=== PATIENT | male | born 1935 | race Caucasian/White ===

== ENCOUNTER 2017-11-18 07:11 | Observation (INO) | payer MEDICARE, MEDICAID ==
[~2017-11-18] VITALS: Ht 190.5 cm; Wt 72.6 kg
[2017-11-18] MEDS ORDERED: SODIUM CHLORIDE 0.9% 1,000 ML IV ONE (07:31)
[2017-11-18 07:57] LABS: HEMATOCRIT. 35.5 % (42.0-52.0); HEMOGLOBIN. 12.3 g/dL (14.0-18.0); MEAN CORPUSCULAR HEMOGLOBIN 31.7 pg (28.0-32.0); MEAN CORPUSCULAR VOLUME 91.2 fL (80.0-94.0); MEAN PLATELET VOLUME 9.4 fl (7.4-10.4); PLATELET 163 x1000/uL (130-400); RED BLOOD CELL COUNT 3.89 mill/uL (4.7-6.1); RED CELL DISTRIBUTION WIDTH 13.1 % (11.6-14.6)
[2017-11-18 08:01] LABS: CHLORIDE 92 mEq/L (98-107)
[2017-11-18 08:28] LABS: INR 1.1; PROTHROMBIN TIME 11.8 sec (9.4-11.6)
[2017-11-18 08:34] LABS: PLATELET ESTIMATE NORMAL
[2017-11-18] MEDS ORDERED: PIPERACILLIN/TAZ 3.375G PREMIX 50 ML IV ONE (10:15)
[2017-11-18] MEDS ORDERED: VANCOMYCIN 1 G PREMIX 200 ML IV SCH (10:15)
[2017-11-18 12:05] VITALS: BP 103/47
[2017-11-18 12:38] VITALS: BP 103/51
[2017-11-18] MEDS ORDERED: DEXTROSE 50% WATER 50ML SYRINGE IV PRN (13:45)
[2017-11-18] MEDS ORDERED: ACETAMINOPHEN 650MG SUPP PR PRN (13:45)
[2017-11-18] MEDS ORDERED: MAGNESIUM/ALUMINUM HYDROXIDE/SIMETHICONE 30ML UDC PO PRN (13:45)
[2017-11-18] MEDS ORDERED: GUAIFENESIN 200MG/10ML SUGAR FREE UDC PO PRN (13:45)
[2017-11-18] MEDS ORDERED: ONDANSETRON HCL 4MG/2ML VIAL IV PRN (13:45)
[2017-11-18] MEDS ORDERED: CLONIDINE 0.1MG TABLET PO PRN (13:45)
[2017-11-18] MEDS ORDERED: IPRATROPIUM/ALBUTEROL 0.5-3(2.5)MG/3ML NEB INH PRN (13:45)
[2017-11-18] MEDS ORDERED: NA PHOS,M-B/NA PHOS,DI-BA ENEMA 118ML PR PRN (13:45)
[2017-11-18] MEDS ORDERED: ACETAMINOPHEN 325MG TABLET PO PRN (13:45)
[2017-11-18] MEDS ORDERED: DIPHENHYDRAMINE 50MG/ML VIAL IV PRN (13:45)
[2017-11-18] MEDS: HYDROCODONE/ACETAMINOPHEN 5/325MG TABLET PO PRN (14:20)
[2017-11-18] MEDS ORDERED: VANCOMYCIN 500 MG PREMIX 100 ML IV NR (15:00)
[2017-11-18 16:00] VITALS: BP_SYST 89; BP_SYST 93; BP_DIAS 40; BP_DIAS 50
[2017-11-18] MEDS ORDERED: POTASSIUM CHLORIDE 20MEQ TABLET SR PO NR (16:00)
[2017-11-18] MEDS: BLOOD SUGAR DIAGNOSTIC STRIP TEST SCH ×2 (17:08→20:47)
[2017-11-18] MEDS: INSULIN LISPRO 100 UNITS/ML SUBCUT SCH ×2 (17:35→20:47)
[2017-11-18] MEDS ORDERED: ENOXAPARIN 40MG/0.4ML SYR SUBCUT SCH (18:00)
[2017-11-18] MEDS ORDERED: PIPERACILLIN/TAZ 2.25G PREMIX 50 ML IV SCH (18:00)
[2017-11-18 18:02] VITALS: BP 91/49
[2017-11-18 20:00] VITALS: BP 93/52
[2017-11-18 20:02] LABS: CLARITY URINE CLOUDY (CLEAR); COLOR URINE AMBER (YELLOW); KETONES URINE TRACE (NEGATIVE); LEUKOCYTE ESTERASE URINE 1+ (NEGATIVE); NITRITE URINE NEGATIVE (NEGATIVE); OCCULT BLOOD URINE NEGATIVE (NEGATIVE); PH URINE 5.5 (4.5-8.0); PROTEIN URINE TRACE (NEGATIVE); SPECIFIC GRAVITY URINE 1.026 (1.005-1.030); UROBILINOGEN URINE 0.2 E.U./dL (0.2-1.0)
[2017-11-18 20:18] LABS: METHADONE URINE SCREEN NEGATIVE (NEGATIVE); OPIATES URINE SCREEN NEGATIVE (NEGATIVE)
[2017-11-18 20:19] LABS: *AMPHETAMINES SCREEN URINE NEGATIVE (NEGATIVE); *BARBITURATES SCREEN URINE NEGATIVE (NEGATIVE); *BENZODIAZEPINES SCREEN URINE NEGATIVE (NEGATIVE); *COCAINE SCREEN URINE NEGATIVE (NEGATIVE); CANNABINOID URINE SCREEN NEGATIVE (NEGATIVE); PHENCYCLIDINE URINE SCREEN NEGATIVE (NEGATIVE)
[2017-11-18] MEDS ORDERED: LEVOFLOXACIN 500MG PREMIX 100 ML IV SCH (23:00)
[2017-11-18] MEDS: METRONIDAZOLE 500 MG PREMIX 100 ML IV SCH (23:15)
[2017-11-19] VITALS: BP 95/48
[2017-11-19] MEDS: SODIUM CHLORIDE 0.9% 1,000 ML IV SCH (03:39)
[2017-11-19 04:00] VITALS: BP 93/50
[2017-11-19] MEDS: METRONIDAZOLE 500 MG PREMIX 100 ML IV SCH ×3 (05:52→21:48)
[2017-11-19 07:29] LABS: HEMATOCRIT. 32.7 % (42.0-52.0); HEMOGLOBIN. 11.3 g/dL (14.0-18.0); MEAN CORPUSCULAR HEMOGLOBIN 31.8 pg (28.0-32.0); MEAN PLATELET VOLUME 9.3 fl (7.4-10.4); PLATELET 149 x1000/uL (130-400); RED BLOOD CELL COUNT 3.56 mill/uL (4.7-6.1)
[2017-11-19] MEDS: BLOOD SUGAR DIAGNOSTIC STRIP TEST SCH ×4 (07:36→20:55)
[2017-11-19] MEDS: INSULIN LISPRO 100 UNITS/ML SUBCUT SCH ×4 (07:50→20:55)
[2017-11-19 07:57] LABS: CHLORIDE 105 mEq/L (98-107)
[2017-11-19 08:07] LABS: LDL CHOLESTEROL 52 mg/dL (5-100)
[2017-11-19 08:09] LABS: HDL CHOLESTEROL 31 mg/dL (40-59); T4 FREE 1.41 ng/dL (0.76-1.46)
[2017-11-19 08:47] VITALS: BP 112/60
[2017-11-19] MEDS ORDERED: VANCOMYCIN 750 MG PREMIX 150 ML IV SCH (10:00)
[2017-11-19] MEDS ORDERED: POTASSIUM CHLORIDE 20MEQ TABLET SR PO SCH (10:00)
[2017-11-19 12:46] VITALS: BP 118/51
[2017-11-19 12:49] LABS: PLATELET ESTIMATE NORMAL
[2017-11-19 13:31] LABS: HEMATOCRIT. 34.1 % (42.0-52.0); HEMOGLOBIN. 11.8 g/dL (14.0-18.0); MEAN CORPUSCULAR HEMOGLOBIN 31.7 pg (28.0-32.0); MEAN CORPUSCULAR VOLUME 91.9 fL (80.0-94.0); PLATELET 161 x1000/uL (130-400); RED BLOOD CELL COUNT 3.71 mill/uL (4.7-6.1); RED CELL DISTRIBUTION WIDTH 13.3 % (11.6-14.6)
[2017-11-19 14:09] LABS: PLATELET ESTIMATE NORMAL
[2017-11-19 16:40] VITALS: BP 115/52
[2017-11-19 20:00] VITALS: BP 111/64
[2017-11-19] MEDS ORDERED: LEVOFLOXACIN 250MG PREMIX 50 ML IV SCH (23:00)
[2017-11-20] VITALS: BP 101/52
[2017-11-20 04:00] VITALS: BP 101/63
[2017-11-20] MEDS: METRONIDAZOLE 500 MG PREMIX 100 ML IV SCH (05:39)
[2017-11-20] MEDS: SODIUM CHLORIDE 0.9% 1,000 ML IV SCH (05:47)
[2017-11-20] MEDS: HYDROCODONE/ACETAMINOPHEN 5/325MG TABLET PO PRN (06:48)
[2017-11-20] MEDS: BLOOD SUGAR DIAGNOSTIC STRIP TEST SCH (06:48)
[2017-11-20 07:37] LABS: HEMATOCRIT 30.2 % (42.0-52.0); HEMOGLOBIN 10.6 g/dL (14.0-18.0); MEAN CORPUSCULAR HEMOGLOBIN 31.9 pg (28.0-32.0); PLATELET 158 x1000/uL (130-400); RED BLOOD CELL COUNT 3.32 mill/uL (4.7-6.1)
[2017-11-20 07:46] LABS: CHLORIDE 106 mEq/L (98-107)
[2017-11-20 08:05] VITALS: BP 115/56
[2017-11-20 08:33] VITALS: BP 134/58
[2017-11-20] MEDS ORDERED: POTASSIUM CHLORIDE 20MEQ TABLET SR PO SCH (10:45)
[2017-11-20 12:33] VITALS: BP 134/58
[2017-11-20 14:46] VITALS: BP 134/58
== END 2017-11-20 14:50 ==
LOC: ER 07:35 → 6WST 10:18 → INTOOBSV 10:18 → EDBEDREQSVC 10:21 → EDBEDREQ 10:21 → ENRESERV 10:34
PROVIDERS: ADMIT Internal Medicine; ATTEND Internal Medicine
DX: D72.825 Bandemia (principal); E87.1 Hypo-osmolality and hyponatremia; N17.9 Acute kidney failure, unspecified; E86.0 Dehydration; E87.6 Hypokalemia; E11.9 Type 2 diabetes mellitus without complications; I10 Essential (primary) hypertension; G89.29 Other chronic pain; M54.5 Low back pain; M41.9 Scoliosis, unspecified; I73.9 Peripheral vascular disease, unspecified; D64.9 Anemia, unspecified; M41.86 Other forms of scoliosis, lumbar region; R06.02 Shortness of breath; R51 Headache
CPT/HCPCS: 36415; 70450; 71045; 80048; 80053; 80061; 80305; 81003; 82270; 82962; 83036; 83605; 83880; 84145; 84439; 84443; 84484; 85007; 85025; 85027; 85610; 87015; 87040; 87045; 87077; 87086; 87186; 87427; 87449; 87493; 93005; 96361; 96365; 96366; 96367; 96368; 99285; G0378; J1815; J1956; J2543; J3370; J3490; J7030; J7040

== ENCOUNTER 2017-12-12 15:59 | Inpatient (IN) | payer MEDICARE, MEDICAID ==
[~2017-12-12] VITALS: Ht 172.7 cm; Wt 76.2 kg
[2017-12-12 16:51] LABS: BASOPHILS % 0.5 % (0.0-2.0); EOSINOPHILS % 2.3 % (0.0-5.0); HEMATOCRIT. 30.3 % (42.0-52.0); HEMOGLOBIN. 10.4 g/dL (14.0-18.0); LYMPHOCYTES % 14.2 % (20.0-50.0); MEAN CORPUSCULAR HEMOGLOBIN 31.3 pg (28.0-32.0); MEAN CORPUSCULAR VOLUME 91.6 fL (80.0-94.0); MEAN PLATELET VOLUME 8.8 fl (7.4-10.4); MONOCYTES % 13.7 % (2.0-8.0); NEUTROPHILS % 69.3 % (40.0-76.0); PLATELET 300 x1000/uL (130-400); RED BLOOD CELL COUNT 3.31 mill/uL (4.7-6.1); RED CELL DISTRIBUTION WIDTH 13.5 % (11.6-14.6)
[2017-12-12 16:53] LABS: CHLORIDE 92 mEq/L (98-107)
[2017-12-12 16:58] LABS: INR 1.1; PARTIAL THROMBOPLASTIN TIME 29.2 sec (23.4-31.0); PROTHROMBIN TIME 11.5 sec (9.4-11.6)
[2017-12-12 17:01] LABS: CREATINE KINASE 64 IU/L (39-308)
[2017-12-12 17:04] LABS: CREATINE KINASE MB FRACTION 2.5 ng/mL (0.5-3.6)
[2017-12-12] MEDS ORDERED: FUROSEMIDE 40MG/4ML VIAL IVP ONE (17:15)
[2017-12-12] MEDS ORDERED: VALS160T27 MT (17:16)
[2017-12-12] MEDS ORDERED: PRAV40TA58 MT (17:16)
[2017-12-12] MEDS ORDERED: DOCU100T PO (17:16)
[2017-12-12] MEDS ORDERED: CARV12.545 MT (17:16)
[2017-12-12] MEDS ORDERED: EZET10TA26 PO (17:16)
[2017-12-12] MEDS ORDERED: AMLO10TA80 MT (17:16)
[2017-12-12] MEDS ORDERED: FURO20TA4 MT (17:16)
[2017-12-12] MEDS ORDERED: DICL75TA5 MT (17:16)
[2017-12-12] MEDS ORDERED: LEVOFLOXACIN 500MG PREMIX 100 ML IV ONE (18:30)
[2017-12-12 20:08] VITALS: BP 118/64
[2017-12-12 20:15] VITALS: BP 118/64
[2017-12-12] MEDS ORDERED: ACETAMINOPHEN 650MG/20.3ML UDC PO PRN (21:30)
[2017-12-12] MEDS ORDERED: FUROSEMIDE 40MG/4ML VIAL IVP SCH (21:30)
[2017-12-12] MEDS ORDERED: BISACODYL 5MG TABLET PO PRN (21:45)
[2017-12-12] MEDS ORDERED: FUROSEMIDE 100MG/10ML VIAL IVP SCH (22:00)
[2017-12-12] MEDS: ENOXAPARIN 40MG/0.4ML SYR SUBCUT SCH (23:53)
[2017-12-12] MEDS: MORPHINE SULFATE 4 MG/ML CPJ (NOT FOR IM USE) IV PRN (23:54)
[2017-12-12] MEDS: PANTOPRAZOLE 40MG DR TABLET PO SCH (23:54)
[2017-12-12] MEDS: LOSARTAN POTASSIUM 25 MG TABLET PO SCH (23:54)
[2017-12-12] MEDS: ASPIRIN 81MG TABLET PO SCH (23:55)
[2017-12-12] MEDS: POTASSIUM CHLORIDE 20MEQ TABLET SR PO SCH (23:57)
[2017-12-13] VITALS: BP 132/71
[2017-12-13] MEDS ORDERED: DEXTROSE 50% WATER 50ML SYRINGE IV PRN (00:30)
[2017-12-13 04:00] VITALS: BP 125/62
[2017-12-13] MEDS: PANTOPRAZOLE 40MG DR TABLET PO SCH (06:58)
[2017-12-13] MEDS: BLOOD SUGAR DIAGNOSTIC STRIP TEST SCH ×4 (06:58→21:55)
[2017-12-13] MEDS: INSULIN LISPRO 100 UNITS/ML SUBCUT SCH ×4 (07:26→21:00)
[2017-12-13 07:40] LABS: BASOPHILS % 0.7 % (0.0-2.0); EOSINOPHILS % 2.1 % (0.0-5.0); HEMATOCRIT. 29.3 % (42.0-52.0); HEMOGLOBIN. 10.1 g/dL (14.0-18.0); LYMPHOCYTES % 18.4 % (20.0-50.0); MEAN CORPUSCULAR HEMOGLOBIN 31.4 pg (28.0-32.0); MEAN CORPUSCULAR VOLUME 91.3 fL (80.0-94.0); MEAN PLATELET VOLUME 9.4 fl (7.4-10.4); MONOCYTES % 14.9 % (2.0-8.0); NEUTROPHILS % 63.9 % (40.0-76.0); PLATELET 285 x1000/uL (130-400); RED BLOOD CELL COUNT 3.21 mill/uL (4.7-6.1); RED CELL DISTRIBUTION WIDTH 13.3 % (11.6-14.6)
[2017-12-13 08:28] VITALS: BP 119/70
[2017-12-13] MEDS: ALBUTEROL (0.083%) 2.5MG/3ML NEB HHN SCH ×3 (09:00→20:58)
[2017-12-13] MEDS: LOSARTAN POTASSIUM 25 MG TABLET PO SCH ×2 (09:03→21:51)
[2017-12-13] MEDS: POTASSIUM CHLORIDE 20MEQ TABLET SR PO SCH (09:03)
[2017-12-13] MEDS: FUROSEMIDE 40MG/4ML VIAL IVP SCH (09:03)
[2017-12-13] MEDS: ASPIRIN 81MG TABLET PO SCH (09:03)
[2017-12-13 12:24] VITALS: BP 148/71
[2017-12-13 16:42] VITALS: BP 115/56
[2017-12-13] MEDS: LEVOFLOXACIN 500MG PREMIX 100 ML IV SCH (17:57)
[2017-12-13 20:00] VITALS: BP 106/59
[2017-12-13] MEDS: ENOXAPARIN 40MG/0.4ML SYR SUBCUT SCH (21:54)
[2017-12-14 00:22] VITALS: BP 119/50
[2017-12-14] MEDS: ALBUTEROL (0.083%) 2.5MG/3ML NEB HHN SCH ×4 (00:38→20:45)
[2017-12-14 04:39] VITALS: BP 129/67
[2017-12-14] MEDS: MORPHINE SULFATE 4 MG/ML CPJ (NOT FOR IM USE) IV PRN (04:59)
[2017-12-14] MEDS: BLOOD SUGAR DIAGNOSTIC STRIP TEST SCH ×4 (07:10→21:14)
[2017-12-14 07:11] LABS: BASOPHILS % 0.8 % (0.0-2.0); EOSINOPHILS % 1.2 % (0.0-5.0); HEMOGLOBIN. 10.3 g/dL (14.0-18.0); LYMPHOCYTES % 18.4 % (20.0-50.0); MEAN CORPUSCULAR HEMOGLOBIN 31.3 pg (28.0-32.0); MEAN CORPUSCULAR VOLUME 91.3 fL (80.0-94.0); MEAN PLATELET VOLUME 9.4 fl (7.4-10.4); MONOCYTES % 14.9 % (2.0-8.0); NEUTROPHILS % 64.7 % (40.0-76.0); PLATELET 274 x1000/uL (130-400); RED BLOOD CELL COUNT 3.28 mill/uL (4.7-6.1); RED CELL DISTRIBUTION WIDTH 13.5 % (11.6-14.6)
[2017-12-14] MEDS: INSULIN LISPRO 100 UNITS/ML SUBCUT SCH ×4 (07:24→21:00)
[2017-12-14 07:40] LABS: CHLORIDE 97 mEq/L (98-107)
[2017-12-14 08:00] VITALS: BP 135/63
[2017-12-14] MEDS: FUROSEMIDE 40MG/4ML VIAL IVP SCH (08:09)
[2017-12-14] MEDS: ASPIRIN 81MG TABLET PO SCH (08:09)
[2017-12-14] MEDS: LOSARTAN POTASSIUM 25 MG TABLET PO SCH ×2 (08:09→21:13)
[2017-12-14] MEDS: POTASSIUM CHLORIDE 20MEQ TABLET SR PO SCH (08:09)
[2017-12-14] MEDS ORDERED: FAMOTIDINE 20MG TABLET PO SCH ×2 (09:00→17:00)
[2017-12-14 12:00] VITALS: BP 149/71
[2017-12-14 16:00] VITALS: BP 127/80
[2017-12-14] MEDS: LEVOFLOXACIN 500MG PREMIX 100 ML IV SCH (17:22)
[2017-12-14] MEDS ORDERED: POTASSIUM CHLORIDE 10MEQ TABLET SR PO SCH (18:15)
[2017-12-14 20:43] VITALS: BP 132/78
[2017-12-14] MEDS: ENOXAPARIN 40MG/0.4ML SYR SUBCUT SCH (21:14)
== END 2017-12-14 21:20 | disposition home or self-care (01) | DRG 291 ==
LOC: ER 15:59 → OBSVTOIN 17:23 → INTOOBSV 17:23 → 6WST 17:23 → EDBEDREQ 17:24 → ENRESERV 17:52
PROVIDERS: ADMIT Internal Medicine; ATTEND Internal Medicine
DX: I11.0 Hypertensive heart disease with heart failure (principal); J18.9 Pneumonia, unspecified organism; I50.43 Acute on chronic combined systolic (congestive) and diastolic (congestive) heart failure; E78.00 Pure hypercholesterolemia, unspecified; D64.9 Anemia, unspecified; E78.5 Hyperlipidemia, unspecified; E11.51 Type 2 diabetes mellitus with diabetic peripheral angiopathy without gangrene; F03.90 Unspecified dementia, unspecified severity, without behavioral disturbance, psychotic disturbance, mood disturbance, and anxiety; M54.5 Low back pain; G89.29 Other chronic pain; Z79.1 Long term (current) use of non-steroidal anti-inflammatories (NSAID); Z79.899 Other long term (current) drug therapy
CPT/HCPCS: 36415; 71045; 80053; 80061; 82550; 82553; 82962; 83605; 83690; 83880; 84443; 84484; 85025; 85610; 85730; 87040; 93005; 93306; 93970; 96374; 99291; J1650; J1940; J1956; J2270; J7050; J7611

== ENCOUNTER 2018-06-23 10:41 | Inpatient (IN) | payer MEDICARE, MEDICAID ==
[~2018-06-23] VITALS: Ht 172.7 cm; Wt 72.1 kg
[2018-06-23] MEDS ORDERED: LEVOFLOXACIN 750MG PREMIX 150 ML IV ONE (12:15)
[2018-06-23 12:36] LABS: BASOPHILS % 0.3 % (0.0-2.0); EOSINOPHILS % 5.8 % (0.0-5.0); HEMATOCRIT. 29.4 % (42.0-52.0); HEMOGLOBIN. 9.5 g/dL (14.0-18.0); MEAN CORPUSCULAR HEMOGLOBIN 28.8 pg (28.0-32.0); MEAN CORPUSCULAR VOLUME 89.1 fL (80.0-94.0); MEAN PLATELET VOLUME 8.9 fl (7.4-10.4); MONOCYTES % 8.7 % (2.0-8.0); NEUTROPHILS % 75.2 % (40.0-76.0); PLATELET 169 x1000/uL (130-400); RED CELL DISTRIBUTION WIDTH 16.4 % (11.6-14.6)
[2018-06-23 12:42] LABS: INR 1.1; PARTIAL THROMBOPLASTIN TIME 31.7 sec (23.4-31.0); PROTHROMBIN TIME 11.4 sec (9.1-11.1)
[2018-06-23 12:43] LABS: CHLORIDE 108 mEq/L (98-107)
[2018-06-23 16:10] LABS: CLARITY URINE CLEAR (CLEAR); COLOR URINE YELLOW (YELLOW); KETONES URINE NEGATIVE (NEGATIVE); LEUKOCYTE ESTERASE URINE NEGATIVE (NEGATIVE); NITRITE URINE NEGATIVE (NEGATIVE); OCCULT BLOOD URINE NEGATIVE (NEGATIVE); PROTEIN URINE NEGATIVE (NEGATIVE); SPECIFIC GRAVITY URINE 1.012 (1.005-1.030); UROBILINOGEN URINE 0.2 E.U./dL (0.2-1.0)
[2018-06-23 16:30] VITALS: BP 107/75
[2018-06-23 16:41] VITALS: BP 132/58
[2018-06-23 20:00] VITALS: BP 152/81
[2018-06-23] MEDS ORDERED: DEXTROSE 50% WATER 50ML SYRINGE IV PRN (20:30)
[2018-06-23] MEDS ORDERED: CLONIDINE 0.1MG TABLET PO PRN (20:30)
[2018-06-23] MEDS ORDERED: ACETAMINOPHEN 325MG TABLET PO PRN (20:30)
[2018-06-23] MEDS: INSULIN LISPRO 100 UNITS/ML SUBCUT SCH (20:55)
[2018-06-23] MEDS: BLOOD SUGAR DIAGNOSTIC STRIP TEST SCH (20:55)
[2018-06-23] MEDS ORDERED: PNEUMOCOCCAL 23-VAL P-SAC VAC 0.5 ML IM ONE (21:15)
[2018-06-24] VITALS: BP 139/78
[2018-06-24] MEDS ORDERED: HYDROCODONE/ACETAMINOPHEN 5/325MG TABLET PO PRN
[2018-06-24] MEDS ORDERED: ACETAMINOPHEN 650MG/20.3ML UDC PO PRN
[2018-06-24] MEDS: ASPIRIN 81MG TABLET PO SCH (00:39)
[2018-06-24] MEDS: GUAIFENESIN 200MG/10ML SUGAR FREE UDC PO PRN (00:39)
[2018-06-24] MEDS: FUROSEMIDE 40MG/4ML VIAL IVP SCH ×2 (00:39→08:44)
[2018-06-24] MEDS: ENOXAPARIN 40MG/0.4ML SYR SUBCUT SCH (00:42)
[2018-06-24] MEDS: PIPERACILLIN/TAZ 3.375G PREMIX 50 ML IV SCH ×3 (03:02→17:40)
[2018-06-24 04:00] VITALS: BP 137/59
[2018-06-24] MEDS ORDERED: ALBUTEROL (0.083%) 2.5MG/3ML NEB HHN SCH (04:00)
[2018-06-24] MEDS: IPRATROPIUM/ALBUTEROL 0.5-3(2.5)MG/3ML NEB HHN SCH ×5 (04:36→21:24)
[2018-06-24] MEDS: BLOOD SUGAR DIAGNOSTIC STRIP TEST SCH ×4 (05:49→21:00)
[2018-06-24] MEDS: INSULIN LISPRO 100 UNITS/ML SUBCUT SCH ×4 (05:50→21:00)
[2018-06-24] MEDS ORDERED: PIPERACILLIN/TAZOBACTAM 3.375GM/50ML PREMIX IV SCH (06:00)
[2018-06-24 07:36] LABS: CHLORIDE 106 mEq/L (98-107)
[2018-06-24 07:46] LABS: HDL CHOLESTEROL 37 mg/dL (40-59)
[2018-06-24 07:48] LABS: LDL CHOLESTEROL 55 mg/dL (5-100)
[2018-06-24 08:00] VITALS: BP 124/55
[2018-06-24] MEDS: CARVEDILOL 6.25 MG TABLET PO SCH ×2 (08:43→21:09)
[2018-06-24] MEDS: METOPROLOL TARTRATE 50MG TABLET PO SCH ×2 (08:43→21:09)
[2018-06-24] MEDS ORDERED: ENOXAPARIN 40MG/0.4ML SYR SUBCUT SCH (09:00)
[2018-06-24 12:00] VITALS: BP 114/58
[2018-06-24] MEDS ORDERED: FUROSEMIDE 100MG/10ML VIAL IVP NR (13:15)
[2018-06-24] MEDS ORDERED: NA PHOS,M-B/NA PHOS,DI-BA ENEMA 118ML PR NR (13:15)
[2018-06-24] MEDS ORDERED: KCL 20MEQ/100ML PREMIX 100 ML IV SCH (15:00)
[2018-06-24 16:00] VITALS: BP 117/57
[2018-06-24] MEDS ORDERED: POTASSIUM CHLORIDE 20MEQ TABLET SR PO NR (16:00)
[2018-06-24 20:00] VITALS: BP 114/68
[2018-06-24] MEDS: ATORVASTATIN CALCIUM 20MG TABLET PO SCH (21:05)
[2018-06-25] VITALS: BP 161/65
[2018-06-25] MEDS: IPRATROPIUM/ALBUTEROL 0.5-3(2.5)MG/3ML NEB HHN SCH ×7 (01:11→23:49)
[2018-06-25] MEDS: PIPERACILLIN/TAZ 3.375G PREMIX 50 ML IV SCH ×3 (03:15→17:29)
[2018-06-25 04:00] VITALS: BP 136/78
[2018-06-25] MEDS: INSULIN LISPRO 100 UNITS/ML SUBCUT SCH ×4 (06:03→21:00)
[2018-06-25] MEDS: BLOOD SUGAR DIAGNOSTIC STRIP TEST SCH ×4 (06:03→21:00)
[2018-06-25 07:02] LABS: CHLORIDE 101 mEq/L (98-107)
[2018-06-25 08:00] VITALS: BP 122/66
[2018-06-25] MEDS: CARVEDILOL 6.25 MG TABLET PO SCH ×2 (09:26→21:00)
[2018-06-25] MEDS: METOPROLOL TARTRATE 50MG TABLET PO SCH ×2 (09:26→21:00)
[2018-06-25] MEDS: ENOXAPARIN 40MG/0.4ML SYR SUBCUT SCH (09:27)
[2018-06-25] MEDS: FUROSEMIDE 40MG/4ML VIAL IVP SCH (09:27)
[2018-06-25] MEDS: ASPIRIN 81MG TABLET PO SCH (09:27)
[2018-06-25] MEDS: GUAIFENESIN 200MG/10ML SUGAR FREE UDC PO PRN ×3 (09:47→22:48)
[2018-06-25 12:00] VITALS: BP 119/55
[2018-06-25 16:00] VITALS: BP 111/54
[2018-06-25 18:31] LABS: BASOPHILS % 0.9 % (0.0-2.0); EOSINOPHILS % 9.6 % (0.0-5.0); HEMATOCRIT. 31.1 % (42.0-52.0); HEMOGLOBIN. 10.1 g/dL (14.0-18.0); LYMPHOCYTES % 16.1 % (20.0-50.0); MEAN CORPUSCULAR HEMOGLOBIN 28.3 pg (28.0-32.0); MEAN CORPUSCULAR VOLUME 86.9 fL (80.0-94.0); MEAN PLATELET VOLUME 8.6 fl (7.4-10.4); NEUTROPHILS % 59.4 % (40.0-76.0); PLATELET 194 x1000/uL (130-400); RED BLOOD CELL COUNT 3.58 mill/uL (4.7-6.1); RED CELL DISTRIBUTION WIDTH 16.6 % (11.6-14.6)
[2018-06-25 20:00] VITALS: BP 159/66
[2018-06-25] MEDS: ATORVASTATIN CALCIUM 20MG TABLET PO SCH (22:42)
[2018-06-26] VITALS: BP 110/65
[2018-06-26] MEDS: PIPERACILLIN/TAZ 3.375G PREMIX 50 ML IV SCH ×3 (01:29→18:46)
[2018-06-26 04:00] VITALS: BP 126/58
[2018-06-26] MEDS: IPRATROPIUM/ALBUTEROL 0.5-3(2.5)MG/3ML NEB HHN SCH ×5 (04:24→20:15)
[2018-06-26 06:25] LABS: HEMATOCRIT 30.6 % (42.0-52.0); HEMOGLOBIN 10.3 g/dL (14.0-18.0); MEAN CORPUSCULAR HEMOGLOBIN 28.9 pg (28.0-32.0); MEAN CORPUSCULAR VOLUME 86.1 fL (80.0-94.0); PLATELET 203 x1000/uL (130-400); RED BLOOD CELL COUNT 3.56 mill/uL (4.7-6.1); RED CELL DISTRIBUTION WIDTH 16.2 % (11.6-14.6)
[2018-06-26 06:33] LABS: CHLORIDE 102 mEq/L (98-107)
[2018-06-26] MEDS: INSULIN LISPRO 100 UNITS/ML SUBCUT SCH ×4 (06:52→21:00)
[2018-06-26] MEDS: BLOOD SUGAR DIAGNOSTIC STRIP TEST SCH ×4 (06:52→21:08)
[2018-06-26] MEDS: METOPROLOL TARTRATE 50MG TABLET PO SCH ×2 (09:00→21:08)
[2018-06-26] MEDS: CARVEDILOL 6.25 MG TABLET PO SCH ×2 (09:00→21:00)
[2018-06-26] MEDS: FUROSEMIDE 40MG/4ML VIAL IVP SCH (09:00)
[2018-06-26] MEDS: ASPIRIN 81MG TABLET PO SCH (10:48)
[2018-06-26] MEDS: ENOXAPARIN 40MG/0.4ML SYR SUBCUT SCH (10:55)
[2018-06-26 11:50] VITALS: BP 138/59
[2018-06-26 16:00] VITALS: BP 108/50
[2018-06-26 20:00] VITALS: BP 123/63
[2018-06-26] MEDS: GUAIFENESIN 600MG ER TABLET PO SCH (21:08)
[2018-06-26] MEDS: ATORVASTATIN CALCIUM 20MG TABLET PO SCH (21:08)
[2018-06-27] VITALS: BP 123/70
[2018-06-27] MEDS: ACETYLCYSTEINE 100MG/ML 10% VIAL 4ML INH SCH ×2 (00:08→08:57)
[2018-06-27] MEDS: IPRATROPIUM/ALBUTEROL 0.5-3(2.5)MG/3ML NEB HHN SCH ×4 (00:09→15:10)
[2018-06-27] MEDS: PIPERACILLIN/TAZ 3.375G PREMIX 50 ML IV SCH ×2 (02:18→11:16)
[2018-06-27 04:00] VITALS: BP 122/63
[2018-06-27 06:15] LABS: HEMATOCRIT 28.8 % (42.0-52.0); HEMOGLOBIN 9.5 g/dL (14.0-18.0); MEAN CORPUSCULAR HEMOGLOBIN 28.7 pg (28.0-32.0); MEAN CORPUSCULAR VOLUME 86.6 fL (80.0-94.0); PLATELET 196 x1000/uL (130-400); RED BLOOD CELL COUNT 3.32 mill/uL (4.7-6.1); RED CELL DISTRIBUTION WIDTH 16.5 % (11.6-14.6)
[2018-06-27 06:39] LABS: CHLORIDE 105 mEq/L (98-107)
[2018-06-27] MEDS: BLOOD SUGAR DIAGNOSTIC STRIP TEST SCH ×2 (06:39→11:18)
[2018-06-27] MEDS: INSULIN LISPRO 100 UNITS/ML SUBCUT SCH ×2 (06:39→12:03)
[2018-06-27 08:00] VITALS: BP 129/51
[2018-06-27] MEDS: CARVEDILOL 6.25 MG TABLET PO SCH (09:00)
[2018-06-27] MEDS: FUROSEMIDE 40MG/4ML VIAL IVP SCH (09:00)
[2018-06-27] MEDS: GUAIFENESIN 600MG ER TABLET PO SCH (09:00)
[2018-06-27] MEDS: ASPIRIN 81MG TABLET PO SCH (09:00)
[2018-06-27] MEDS: METOPROLOL TARTRATE 50MG TABLET PO SCH (09:00)
[2018-06-27] MEDS: ENOXAPARIN 40MG/0.4ML SYR SUBCUT SCH (09:02)
[2018-06-27 11:57] VITALS: BP 109/43
[2018-06-27] MEDS ORDERED: PNEUMOCOCCAL 23-VAL P-SAC VAC 0.5 ML IM ONE (13:45)
[2018-06-27 16:00] VITALS: BP 125/60
== END 2018-06-27 18:06 | disposition home or self-care (01) | DRG 291 ==
LOC: EDBD 10:41 → ER 10:41 → 8WST 13:32 → EDBEDREQ 13:34 → ENRESERV 14:35
PROVIDERS: ADMIT Internal Medicine; ATTEND Internal Medicine
DX: I11.0 Hypertensive heart disease with heart failure (principal); J18.9 Pneumonia, unspecified organism; E46 Unspecified protein-calorie malnutrition; D68.59 Other primary thrombophilia; J44.0 Chronic obstructive pulmonary disease with (acute) lower respiratory infection; I50.33 Acute on chronic diastolic (congestive) heart failure; E78.5 Hyperlipidemia, unspecified; E11.9 Type 2 diabetes mellitus without complications; D64.9 Anemia, unspecified; R06.03 Acute respiratory distress; E78.00 Pure hypercholesterolemia, unspecified; I25.10 Atherosclerotic heart disease of native coronary artery without angina pectoris; I48.91 Unspecified atrial fibrillation; Z68.24 Body mass index [BMI] 24.0-24.9, adult
CPT/HCPCS: 36415; 71045; 80048; 80061; 82962; 83036; 83605; 83880; 84484; 85027; 87804; 93005; 93970; 94640; 96365; 97161; 99285; C1893; J1650; J1940; J1956; J2543; J3480; J7040; J7608; J7611; J7620

== ENCOUNTER 2018-09-09 16:38 | Emergency (ER) | payer MEDICARE, MEDICAID ==
[~2018-09-09] VITALS: Ht 167.6 cm; Wt 67.0 kg
[2018-09-09] MEDS ORDERED: BACITRACIN ZINC OINT UDPKT TOP ONE (19:45)
[2018-09-09] MEDS ORDERED: CEPHALEXIN 250MG CAPSULE PO ONE (19:45)
[2018-09-09 20:25] LABS: BASOPHILS % 0.5 % (0.0-2.0); EOSINOPHILS % 4.2 % (0.0-5.0); HEMATOCRIT. 33.4 % (42.0-52.0); HEMOGLOBIN. 10.8 g/dL (14.0-18.0); LYMPHOCYTES % 11.1 % (20.0-50.0); MEAN CORPUSCULAR HEMOGLOBIN 28.5 pg (28.0-32.0); MEAN PLATELET VOLUME 9.1 fl (7.4-10.4); MONOCYTES % 12.3 % (2.0-8.0); NEUTROPHILS % 71.9 % (40.0-76.0); PLATELET 176 x1000/uL (130-400); RED BLOOD CELL COUNT 3.79 mill/uL (4.7-6.1); RED CELL DISTRIBUTION WIDTH 21.2 % (11.6-14.6)
[2018-09-09 20:32] LABS: CHLORIDE 108 mEq/L (98-107)
[2018-09-09 20:34] LABS: INR 1.1; PARTIAL THROMBOPLASTIN TIME 29.6 sec (23.4-31.0)
[2018-09-09 23:56] VITALS: BP 148/72
== END 2018-09-09 23:56 | disposition home or self-care (01) ==
LOC: ER 16:38
DX: S80.822A Blister (nonthermal), left lower leg, initial encounter (principal); S80.821A Blister (nonthermal), right lower leg, initial encounter; R23.8 Other skin changes; R60.0 Localized edema; J45.909 Unspecified asthma, uncomplicated; E11.9 Type 2 diabetes mellitus without complications; I10 Essential (primary) hypertension; X58.XXXA Exposure to other specified factors, initial encounter; Y93.89 Activity, other specified; Y92.89 Other specified places as the place of occurrence of the external cause; Y99.8 Other external cause status
CPT/HCPCS: 10060; 36415; 83880; 84484; 93970; 99284

== ENCOUNTER 2019-06-23 11:43 | Inpatient (IN) | payer MEDICARE, MEDICAID ==
[~2019-06-23] VITALS: Ht 177.8 cm; Wt 71.3 kg
[2019-06-23] MEDS ORDERED: NITROGLYCERIN OINT 1GM/INCH UDPKT TD ONE (15:15)
[2019-06-23] MEDS ORDERED: FUROSEMIDE 40MG/4ML VIAL IV ONE (15:15)
[2019-06-23] MEDS ORDERED: ASPIRIN 81MG TABLET PO ONE (15:15)
[2019-06-23 15:33] LABS: BASOPHILS % 0.6 % (0.0-2.0); EOSINOPHILS % 3.6 % (0.0-5.0); HEMATOCRIT. 33.7 % (42.0-52.0); HEMOGLOBIN. 11.2 g/dL (14.0-18.0); MEAN CORPUSCULAR HEMOGLOBIN 31.1 pg (28.0-32.0); MEAN CORPUSCULAR VOLUME 93.2 fL (80.0-94.0); MEAN PLATELET VOLUME 9.1 fl (7.4-10.4); MONOCYTES % 12.2 % (2.0-8.0); NEUTROPHILS % 73.6 % (40.0-76.0); PLATELET 182 x1000/uL (130-400); RED BLOOD CELL COUNT 3.62 mill/uL (4.7-6.1); RED CELL DISTRIBUTION WIDTH 14.6 % (11.6-14.6)
[2019-06-23 15:38] LABS: CHLORIDE 111 mEq/L (98-107)
[2019-06-23] MEDS ORDERED: LEVOFLOXACIN 750MG PREMIX 150 ML IV ONE (16:15)
[2019-06-23 18:21] LABS: CLARITY URINE CLEAR (CLEAR); COLOR URINE YELLOW (YELLOW); KETONES URINE NEGATIVE (NEGATIVE); LEUKOCYTE ESTERASE URINE NEGATIVE (NEGATIVE); NITRITE URINE NEGATIVE (NEGATIVE); OCCULT BLOOD URINE NEGATIVE (NEGATIVE); PROTEIN URINE NEGATIVE (NEGATIVE); SPECIFIC GRAVITY URINE 1.005 (1.005-1.030); UROBILINOGEN URINE 0.2 E.U./dL (0.2-1.0)
[2019-06-24] MEDS ORDERED: ACETAMINOPHEN 325MG TABLET PO PRN (01:15)
[2019-06-24] MEDS ORDERED: DEXTROSE 50% WATER 50ML SYRINGE IV PRN (01:30)
[2019-06-24] MEDS ORDERED: DICL75TA5 MT (01:37)
[2019-06-24] MEDS ORDERED: ALBU05 NEB (01:37)
[2019-06-24] MEDS ORDERED: POTA8CAP20 MT (01:37)
[2019-06-24] MEDS ORDERED: PRAV40TA58 MT (01:37)
[2019-06-24] MEDS ORDERED: LOSA50TA41 MT (01:37)
[2019-06-24] MEDS ORDERED: FLUT1BLS9 IH (01:37)
[2019-06-24] MEDS ORDERED: CARV12.545 MT (01:37)
[2019-06-24] MEDS ORDERED: GABA-529 MT (01:37)
[2019-06-24] MEDS ORDERED: EZET10TA13 MT (01:37)
[2019-06-24] MEDS ORDERED: APIX5TAB MT (01:37)
[2019-06-24 01:39] VITALS: BP 160/77
[2019-06-24 04:00] VITALS: BP 161/51
[2019-06-24] MEDS: BLOOD SUGAR DIAGNOSTIC STRIP TEST SCH ×4 (07:40→21:12)
[2019-06-24 07:49] LABS: BASOPHILS % 0.7 % (0.0-2.0); EOSINOPHILS % 5.5 % (0.0-5.0); HEMATOCRIT. 31.8 % (42.0-52.0); HEMOGLOBIN. 10.7 g/dL (14.0-18.0); LYMPHOCYTES % 9.1 % (20.0-50.0); MEAN CORPUSCULAR HEMOGLOBIN 31.2 pg (28.0-32.0); MEAN CORPUSCULAR VOLUME 92.2 fL (80.0-94.0); MEAN PLATELET VOLUME 9.5 fl (7.4-10.4); MONOCYTES % 13.5 % (2.0-8.0); NEUTROPHILS % 71.2 % (40.0-76.0); PLATELET 167 x1000/uL (130-400); RED BLOOD CELL COUNT 3.45 mill/uL (4.7-6.1); RED CELL DISTRIBUTION WIDTH 14.3 % (11.6-14.6)
[2019-06-24 07:59] LABS: CHLORIDE 108 mEq/L (98-107)
[2019-06-24 08:00] VITALS: BP 140/71
[2019-06-24] MEDS: INSULIN LISPRO 100 UNITS/ML SUBCUT SCH ×4 (08:10→21:00)
[2019-06-24] MEDS: IPRATROPIUM/ALBUTEROL 0.5-3(2.5)MG/3ML NEB HHN SCH ×4 (08:32→21:59)
[2019-06-24] MEDS: CARVEDILOL 12.5MG TABLET PO SCH ×2 (08:48→21:03)
[2019-06-24] MEDS: GABAPENTIN 100MG CAPSULE PO SCH ×3 (08:48→21:03)
[2019-06-24] MEDS ORDERED: PRAVASTATIN SODIUM 40 MG PO SCH (09:00)
[2019-06-24] MEDS ORDERED: APIXABAN 5 MG TABLET PO SCH ×2 (09:00)
[2019-06-24 12:00] VITALS: BP 142/68
[2019-06-24] MEDS ORDERED: LACTULOSE 20G/30ML UDC PO NR (12:45)
[2019-06-24] MEDS ORDERED: DIPHENHYDRAMINE 50MG/ML VIAL IV PRN (15:45)
[2019-06-24] MEDS ORDERED: LORAZEPAM 2MG/ML CPJ IV PRN (15:45)
[2019-06-24] MEDS ORDERED: HYDROCODONE/ACETAMINOPHEN 5/325MG TABLET PO PRN (15:45)
[2019-06-24] MEDS ORDERED: ONDANSETRON HCL 4MG/2ML INJ IV PRN (15:45)
[2019-06-24] MEDS ORDERED: LACTULOSE 20G/30ML UDC PO PRN (15:45)
[2019-06-24] MEDS ORDERED: CLONIDINE 0.1MG TABLET PO PRN (15:45)
[2019-06-24 16:00] VITALS: BP 147/62
[2019-06-24] MEDS: LOSARTAN POTASSIUM 50 MG TABLET PO SCH (18:17)
[2019-06-24] MEDS: FUROSEMIDE 40MG/4ML VIAL IVP SCH (18:17)
[2019-06-24 20:00] VITALS: BP 164/89
[2019-06-24] MEDS: ATORVASTATIN CALCIUM 10MG TABLET PO SCH (21:03)
[2019-06-24 21:15] LABS: INR 1.3; PARTIAL THROMBOPLASTIN TIME 28.4 sec (23.4-31.0); PROTHROMBIN TIME 13.2 sec (9.6-11.0)
[2019-06-25] VITALS: BP 113/75
[2019-06-25] MEDS: IPRATROPIUM/ALBUTEROL 0.5-3(2.5)MG/3ML NEB HHN SCH ×6 (01:03→20:03)
[2019-06-25 04:00] VITALS: BP 123/75
[2019-06-25] MEDS: GABAPENTIN 100MG CAPSULE PO SCH ×3 (05:17→22:46)
[2019-06-25 05:35] LABS: CHLORIDE 105 mEq/L (98-107)
[2019-06-25 05:38] LABS: BASOPHILS % 0.7 % (0.0-2.0); EOSINOPHILS % 5.6 % (0.0-5.0); HEMATOCRIT. 30.4 % (42.0-52.0); HEMOGLOBIN. 10.1 g/dL (14.0-18.0); LYMPHOCYTES % 9.2 % (20.0-50.0); MEAN CORPUSCULAR HEMOGLOBIN 30.6 pg (28.0-32.0); MEAN CORPUSCULAR VOLUME 91.9 fL (80.0-94.0); MEAN PLATELET VOLUME 9.2 fl (7.4-10.4); MONOCYTES % 13.1 % (2.0-8.0); NEUTROPHILS % 71.4 % (40.0-76.0); PLATELET 167 x1000/uL (130-400); RED BLOOD CELL COUNT 3.31 mill/uL (4.7-6.1); RED CELL DISTRIBUTION WIDTH 14.4 % (11.6-14.6)
[2019-06-25] MEDS: BLOOD SUGAR DIAGNOSTIC STRIP TEST SCH ×4 (07:40→22:47)
[2019-06-25 08:00] VITALS: BP 121/55
[2019-06-25] MEDS: INSULIN LISPRO 100 UNITS/ML SUBCUT SCH ×4 (08:10→22:47)
[2019-06-25] MEDS: CARVEDILOL 12.5MG TABLET PO SCH ×2 (08:42→22:46)
[2019-06-25] MEDS: LOSARTAN POTASSIUM 50 MG TABLET PO SCH (08:42)
[2019-06-25] MEDS: FUROSEMIDE 40MG/4ML VIAL IVP SCH (08:42)
[2019-06-25 12:00] VITALS: BP 110/46
[2019-06-25 15:13] LABS: BG BASE EXCESS 5.3 mmol/L (-2.0-2.0); BG CARBOXYHEMOGLOBIN 0.2 % (0.5-1.5); BG FRACTION INSPIRED OXYGEN 21; BG HCO3 ACT 29.8 mmol/L (22.0-26.0); BG METHEMOGLOBIN 0.2 % (0.0-1.5); BG OXYHEMOGLOBIN 94.6 % (94.0-97.0); BG PCO2 43.8 mmHg (35.0-45.0); BG PH 7.451 (7.350-7.450); BG PO2 72.2 mmHg (75.0-100.0); BG SAMPLE SITE RIGHT BRACHIAL; BG TOTAL HEMOGLOBIN 11.4 g/dL (12.0-18.0); BG VENT MODE ROOM AIR
[2019-06-25 16:00] VITALS: BP 128/59
[2019-06-25] MEDS: PIPERACILLIN/TAZOBACTAM 3.375 G in DEXT 5% WATER 100 ML IV SCH (17:41)
[2019-06-25 20:00] VITALS: BP 117/59
[2019-06-25] MEDS ORDERED: DOCUSATE SODIUM 100MG CAPSULE PO SCH ×2 (21:00→23:00)
[2019-06-25] MEDS: ATORVASTATIN CALCIUM 10MG TABLET PO SCH (22:47)
[2019-06-26] VITALS (45 sets, daily range): BP systolic 117–184; BP diastolic 44–99
[2019-06-26] MEDS ORDERED: DEXT 5%/0.45% NACL 1000ML 1,000 ML IV SCH
[2019-06-26] MEDS: PIPERACILLIN/TAZOBACTAM 3.375 G in DEXT 5% WATER 100 ML IV SCH ×4 (00:18→18:08)
[2019-06-26] MEDS: IPRATROPIUM/ALBUTEROL 0.5-3(2.5)MG/3ML NEB HHN SCH ×5 (00:20→21:51)
[2019-06-26 05:51] LABS: INR 1.2; PROTHROMBIN TIME 11.8 sec (9.6-11.0)
[2019-06-26 05:53] LABS: CHLORIDE 102 mEq/L (98-107)
[2019-06-26 06:00] LABS: BASOPHILS % 0.5 % (0.0-2.0); EOSINOPHILS % 9.1 % (0.0-5.0); HEMATOCRIT. 30.8 % (42.0-52.0); HEMOGLOBIN. 10.4 g/dL (14.0-18.0); LYMPHOCYTES % 8.8 % (20.0-50.0); MEAN CORPUSCULAR HEMOGLOBIN 31.1 pg (28.0-32.0); MEAN CORPUSCULAR VOLUME 91.9 fL (80.0-94.0); MEAN PLATELET VOLUME 9.7 fl (7.4-10.4); MONOCYTES % 14.8 % (2.0-8.0); NEUTROPHILS % 66.8 % (40.0-76.0); PLATELET 173 x1000/uL (130-400); RED BLOOD CELL COUNT 3.35 mill/uL (4.7-6.1); RED CELL DISTRIBUTION WIDTH 14.2 % (11.6-14.6)
[2019-06-26] MEDS: GABAPENTIN 100MG CAPSULE PO SCH ×3 (06:00→21:00)
[2019-06-26 06:03] LABS: LDL CHOLESTEROL 49 mg/dL (5-100)
[2019-06-26 06:04] LABS: HDL CHOLESTEROL 31 mg/dL (40-59)
[2019-06-26] MEDS: BLOOD SUGAR DIAGNOSTIC STRIP TEST SCH ×4 (06:52→21:11)
[2019-06-26] MEDS ORDERED: TETRACAINE/BENZOCAINE/BUTAMBEN 20 GM SPRAY MM ONE (06:54)
[2019-06-26] MEDS ORDERED: BUPIVACAINE/EPINEPH/PF 0.25%/0.0005 10ML ONE (06:54)
[2019-06-26] MEDS: INSULIN LISPRO 100 UNITS/ML SUBCUT SCH ×4 (06:59→21:01)
[2019-06-26] MEDS: LOSARTAN POTASSIUM 50 MG TABLET PO SCH (08:25)
[2019-06-26] MEDS: CARVEDILOL 12.5MG TABLET PO SCH ×2 (08:26→21:00)
[2019-06-26] MEDS ORDERED: SKIN ADHESIVE 0.7 GM EA TOP ONE (08:26)
[2019-06-26] MEDS ORDERED: BACITRACIN 15GM TUBE TOP ONE (08:26)
[2019-06-26] MEDS ORDERED: BACITRACIN 50,000 UNITS/VIAL ONE (08:26)
[2019-06-26] MEDS: FUROSEMIDE 40MG/4ML VIAL IVP SCH (08:29)
[2019-06-26] MEDS ORDERED: ONDANSETRON HCL 4MG/2ML INJ ONE (10:36)
[2019-06-26] MEDS ORDERED: FENTANYL CITRATE/PF 50MCG/ML 2ML VIAL ONE (10:36)
[2019-06-26] MEDS ORDERED: GLYCOPYRROLATE 0.2 MG/ML 2ML VIAL ONE ×2 (10:36→12:49)
[2019-06-26] MEDS ORDERED: MIDAZOLAM HCL 2 MG/2 ML VIAL ONE (10:36)
[2019-06-26] MEDS ORDERED: PROPOFOL 200MG/20ML VIAL IV ONE (10:36)
[2019-06-26] MEDS ORDERED: NEOSTIGMINE METHYLSULFATE 1MG/ML 10 ML VIAL ONE (10:36)
[2019-06-26] MEDS ORDERED: DEXAMETHASONE 4MG/ML 1ML VIAL ONE (10:36)
[2019-06-26] MEDS ORDERED: ROCURONIUM BROMIDE 10MG/ML VIAL 5ML IV ONE (10:36)
[2019-06-26] MEDS ORDERED: TALC 3 GM VIAL IX SCH ×2 (12:15)
[2019-06-26] MEDS ORDERED: SODIUM CHLORIDE 0.9% 500 ML IV PRN (13:07)
[2019-06-26] MEDS ORDERED: ACETAMINOPHEN 325MG TABLET PO PRN (13:15)
[2019-06-26 13:43] LABS: BG BASE EXCESS -0.2 mmol/L (-2.0-2.0); BG CARBOXYHEMOGLOBIN 0.3 % (0.5-1.5); BG DEOXYHEMOGLOBIN 1.3 % (0.0-5.0); BG FRACTION INSPIRED OXYGEN 50; BG METHEMOGLOBIN 0.3 % (0.0-1.5); BG OXYGEN SATURATION 98.7 % (92.0-98.5); BG OXYHEMOGLOBIN 98.1 % (94.0-97.0); BG PCO2 42.9 mmHg (35.0-45.0); BG PH 7.383 (7.350-7.450); BG PO2 145.3 mmHg (75.0-100.0); BG SAMPLE SITE A-LINE; BG TOTAL HEMOGLOBIN 10.8 g/dL (12.0-18.0); BG VENT MODE MASK - SIMPLE
[2019-06-26] MEDS: DEXT 5%/0.45% NACL 1000ML 1,000 ML IV SCH (13:43)
[2019-06-26] MEDS: MORPHINE SULFATE 2 MG/ML CPJ (NOT FOR IM USE) IV PRN (13:48)
[2019-06-26] MEDS ORDERED: MAGNESIUM HYDROXIDE 400MG/5ML 30ML UDC PO SCH (14:00)
[2019-06-26] MEDS: OXYCODONE HCL/ACETAMINOPHEN 5/325MG TABLET PO PRN ×2 (15:47→18:46)
[2019-06-26] MEDS: HYDRALAZINE 20MG/ML VIAL IV PRN (15:48)
[2019-06-26] MEDS: MAGNESIUM HYDROXIDE 400MG/5ML 30ML UDC PO SCH ×2 (16:56→19:42)
[2019-06-26] MEDS: DOCUSATE SODIUM 100MG CAPSULE PO SCH (16:56)
[2019-06-26] MEDS: CEFAZOLIN 1000MG PREMIX 50 ML IV SCH ×2 (16:56→22:59)
[2019-06-26] MEDS: ATORVASTATIN CALCIUM 10MG TABLET PO SCH (21:00)
[2019-06-26] MEDS: FAMOTIDINE 20MG/2ML VIAL IV SCH (21:00)
[2019-06-26] MEDS: ONDANSETRON HCL 4MG/2ML INJ IV PRN (22:06)
[2019-06-27] VITALS (84 sets, daily range): BP systolic 91–165; BP diastolic 0–116
[2019-06-27] MEDS: PIPERACILLIN/TAZOBACTAM 3.375 G in DEXT 5% WATER 100 ML IV SCH ×4 (00:01→17:41)
[2019-06-27] MEDS: DEXT 5%/0.45% NACL 1000ML 1,000 ML IV SCH (00:05)
[2019-06-27] MEDS: IPRATROPIUM/ALBUTEROL 0.5-3(2.5)MG/3ML NEB HHN SCH ×6 (00:18→21:10)
[2019-06-27] MEDS: ONDANSETRON HCL 4MG/2ML INJ IV PRN (02:37)
[2019-06-27] MEDS: MAGNESIUM HYDROXIDE 400MG/5ML 30ML UDC PO SCH ×4 (03:44→12:34)
[2019-06-27 05:51] LABS: HEMATOCRIT. 33.7 % (42.0-52.0); HEMOGLOBIN. 11.4 g/dL (14.0-18.0); MEAN CORPUSCULAR HEMOGLOBIN 30.9 pg (28.0-32.0); MEAN CORPUSCULAR VOLUME 91.6 fL (80.0-94.0); MEAN PLATELET VOLUME 9.7 fl (7.4-10.4); PLATELET 177 x1000/uL (130-400); RED BLOOD CELL COUNT 3.68 mill/uL (4.7-6.1); RED CELL DISTRIBUTION WIDTH 14.2 % (11.6-14.6)
[2019-06-27 05:56] LABS: CHLORIDE 100 mEq/L (98-107)
[2019-06-27] MEDS: GABAPENTIN 100MG CAPSULE PO SCH ×3 (06:00→22:06)
[2019-06-27] MEDS: BLOOD SUGAR DIAGNOSTIC STRIP TEST SCH ×4 (07:50→20:35)
[2019-06-27] MEDS: CEFAZOLIN 1000MG PREMIX 50 ML IV SCH ×2 (08:01→16:52)
[2019-06-27] MEDS: FUROSEMIDE 40MG/4ML VIAL IVP SCH (08:01)
[2019-06-27] MEDS: DOCUSATE SODIUM 100MG CAPSULE PO SCH ×2 (08:01→16:52)
[2019-06-27] MEDS: CARVEDILOL 12.5MG TABLET PO SCH ×2 (08:01→20:35)
[2019-06-27] MEDS: FAMOTIDINE 20MG/2ML VIAL IV SCH (08:01)
[2019-06-27] MEDS: LOSARTAN POTASSIUM 50 MG TABLET PO SCH (08:01)
[2019-06-27] MEDS: METOCLOPRAMIDE HCL 10MG/2ML VIAL IV SCH ×3 (08:02→20:34)
[2019-06-27] MEDS: INSULIN LISPRO 100 UNITS/ML SUBCUT SCH ×4 (08:02→20:35)
[2019-06-27 08:56] LABS: PLATELET ESTIMATE NORMAL
[2019-06-27] MEDS ORDERED: FAMOTIDINE 20MG/2ML VIAL IV SCH (09:00)
[2019-06-27] MEDS: OXYCODONE HCL/ACETAMINOPHEN 5/325MG TABLET PO PRN ×3 (10:14→20:44)
[2019-06-27] MEDS: SODIUM CHLORIDE 0.9% INJ 3ML FLUSH IVF SCH ×2 (14:00→22:06)
[2019-06-27] MEDS: ATORVASTATIN CALCIUM 10MG TABLET PO SCH (20:34)
[2019-06-27] MEDS: LACTULOSE 20G/30ML UDC PO PRN (20:44)
[2019-06-28] VITALS (65 sets, daily range): BP systolic 75–144; BP diastolic 29–116
[2019-06-28] MEDS: PIPERACILLIN/TAZOBACTAM 3.375 G in DEXT 5% WATER 100 ML IV SCH ×4 (00:27→17:16)
[2019-06-28] MEDS: METOCLOPRAMIDE HCL 10MG/2ML VIAL IV SCH ×4 (02:42→20:19)
[2019-06-28] MEDS: IPRATROPIUM/ALBUTEROL 0.5-3(2.5)MG/3ML NEB HHN SCH ×6 (04:34→20:34)
[2019-06-28] MEDS: SODIUM CHLORIDE 0.9% INJ 3ML FLUSH IVF SCH ×3 (05:37→21:19)
[2019-06-28] MEDS: GABAPENTIN 100MG CAPSULE PO SCH ×3 (05:37→21:18)
[2019-06-28] MEDS: OXYCODONE HCL/ACETAMINOPHEN 5/325MG TABLET PO PRN ×2 (06:44→21:37)
[2019-06-28 07:01] LABS: HEMATOCRIT. 30.5 % (42.0-52.0); HEMOGLOBIN. 10.3 g/dL (14.0-18.0); MEAN CORPUSCULAR HEMOGLOBIN 30.9 pg (28.0-32.0); MEAN CORPUSCULAR VOLUME 91.6 fL (80.0-94.0); PLATELET 148 x1000/uL (130-400); RED BLOOD CELL COUNT 3.33 mill/uL (4.7-6.1)
[2019-06-28] MEDS: MORPHINE SULFATE 2 MG/ML CPJ (NOT FOR IM USE) IV PRN (07:06)
[2019-06-28 07:23] LABS: CHLORIDE 97 mEq/L (98-107)
[2019-06-28] MEDS: BLOOD SUGAR DIAGNOSTIC STRIP TEST SCH ×4 (08:13→21:19)
[2019-06-28] MEDS: INSULIN LISPRO 100 UNITS/ML SUBCUT SCH ×4 (08:20→21:00)
[2019-06-28] MEDS: CARVEDILOL 12.5MG TABLET PO SCH ×2 (09:00→21:00)
[2019-06-28] MEDS: LOSARTAN POTASSIUM 50 MG TABLET PO SCH (09:00)
[2019-06-28] MEDS: DOCUSATE SODIUM 100MG CAPSULE PO SCH ×2 (09:23→17:16)
[2019-06-28] MEDS: FUROSEMIDE 40MG/4ML VIAL IVP SCH (09:23)
[2019-06-28] MEDS: FAMOTIDINE 20MG/2ML VIAL IV SCH (09:23)
[2019-06-28 10:53] LABS: PLATELET ESTIMATE NORMAL
[2019-06-28] MEDS ORDERED: ALBUMIN HUMAN 12.5G/250ML (5%) IV NR (14:30)
[2019-06-28] MEDS: ATORVASTATIN CALCIUM 10MG TABLET PO SCH (21:18)
[2019-06-29] VITALS (47 sets, daily range): BP systolic 91–152; BP diastolic 45–98
[2019-06-29] MEDS: PIPERACILLIN/TAZOBACTAM 3.375 G in DEXT 5% WATER 100 ML IV SCH ×5 (00:01→23:22)
[2019-06-29] MEDS: IPRATROPIUM/ALBUTEROL 0.5-3(2.5)MG/3ML NEB HHN SCH ×6 (00:49→20:27)
[2019-06-29] MEDS: METOCLOPRAMIDE HCL 10MG/2ML VIAL IV SCH ×4 (02:16→20:56)
[2019-06-29] MEDS: SODIUM CHLORIDE 0.9% INJ 3ML FLUSH IVF SCH ×3 (05:33→21:48)
[2019-06-29] MEDS: GABAPENTIN 100MG CAPSULE PO SCH ×3 (05:33→21:48)
[2019-06-29 06:52] LABS: HEMATOCRIT. 29.7 % (42.0-52.0); HEMOGLOBIN. 9.9 g/dL (14.0-18.0); MEAN CORPUSCULAR HEMOGLOBIN 30.2 pg (28.0-32.0); MEAN CORPUSCULAR VOLUME 90.9 fL (80.0-94.0); MEAN PLATELET VOLUME 9.8 fl (7.4-10.4); PLATELET 152 x1000/uL (130-400); RED BLOOD CELL COUNT 3.27 mill/uL (4.7-6.1); RED CELL DISTRIBUTION WIDTH 13.9 % (11.6-14.6)
[2019-06-29 07:02] LABS: CHLORIDE 97 mEq/L (98-107)
[2019-06-29] MEDS: BLOOD SUGAR DIAGNOSTIC STRIP TEST SCH ×4 (07:50→21:02)
[2019-06-29] MEDS: INSULIN LISPRO 100 UNITS/ML SUBCUT SCH ×4 (08:20→21:08)
[2019-06-29] MEDS: DOCUSATE SODIUM 100MG CAPSULE PO SCH ×2 (09:30→17:40)
[2019-06-29] MEDS: FAMOTIDINE 20MG/2ML VIAL IV SCH (09:30)
[2019-06-29] MEDS: CARVEDILOL 12.5MG TABLET PO SCH ×2 (09:31→21:00)
[2019-06-29] MEDS: LOSARTAN POTASSIUM 50 MG TABLET PO SCH (09:31)
[2019-06-29 11:40] LABS: BG BASE EXCESS 1.8 mmol/L (-2.0-2.0); BG CARBOXYHEMOGLOBIN 0.2 % (0.5-1.5); BG DEOXYHEMOGLOBIN 5.3 % (0.0-5.0); BG FRACTION INSPIRED OXYGEN 21; BG HCO3 ACT 26.6 mmol/L (22.0-26.0); BG METHEMOGLOBIN 0.3 % (0.0-1.5); BG OXYGEN SATURATION 94.7 % (92.0-98.5); BG OXYHEMOGLOBIN 94.2 % (94.0-97.0); BG PCO2 42.6 mmHg (35.0-45.0); BG PH 7.414 (7.350-7.450); BG SAMPLE SITE RIGHT RADIAL; BG TOTAL HEMOGLOBIN 11.3 g/dL (12.0-18.0); BG VENT MODE ROOM AIR
[2019-06-29 12:25] LABS: PLATELET ESTIMATE NORMAL
[2019-06-29] MEDS: COLCHICINE 0.6MG TABLET PO SCH (13:56)
[2019-06-29] MEDS: OXYCODONE HCL/ACETAMINOPHEN 5/325MG TABLET PO PRN (21:09)
[2019-06-29] MEDS: ATORVASTATIN CALCIUM 10MG TABLET PO SCH (21:09)
[2019-06-30] VITALS (49 sets, daily range): BP systolic 83–150; BP diastolic 38–112
[2019-06-30] MEDS: IPRATROPIUM/ALBUTEROL 0.5-3(2.5)MG/3ML NEB HHN SCH ×7 (00:17→20:18)
[2019-06-30] MEDS: METOCLOPRAMIDE HCL 10MG/2ML VIAL IV SCH ×4 (02:34→20:02)
[2019-06-30] MEDS: PIPERACILLIN/TAZOBACTAM 3.375 G in DEXT 5% WATER 100 ML IV SCH ×3 (05:24→17:07)
[2019-06-30] MEDS: SODIUM CHLORIDE 0.9% INJ 3ML FLUSH IVF SCH ×3 (05:24→22:14)
[2019-06-30 05:48] LABS: HEMOGLOBIN 9.8 g/dL (14.0-18.0); MEAN CORPUSCULAR HEMOGLOBIN 30.8 pg (28.0-32.0); MEAN CORPUSCULAR VOLUME 91.5 fL (80.0-94.0); PLATELET 170 x1000/uL (130-400); RED BLOOD CELL COUNT 3.17 mill/uL (4.7-6.1); RED CELL DISTRIBUTION WIDTH 13.9 % (11.6-14.6)
[2019-06-30 05:54] LABS: CHLORIDE 100 mEq/L (98-107)
[2019-06-30] MEDS: GABAPENTIN 100MG CAPSULE PO SCH ×3 (06:49→22:15)
[2019-06-30] MEDS: BLOOD SUGAR DIAGNOSTIC STRIP TEST SCH ×4 (07:50→21:00)
[2019-06-30] MEDS: INSULIN LISPRO 100 UNITS/ML SUBCUT SCH ×4 (08:20→21:00)
[2019-06-30] MEDS: LOSARTAN POTASSIUM 50 MG TABLET PO SCH (08:58)
[2019-06-30] MEDS: COLCHICINE 0.6MG TABLET PO SCH (08:58)
[2019-06-30] MEDS: FAMOTIDINE 20MG/2ML VIAL IV SCH (08:59)
[2019-06-30] MEDS: DOCUSATE SODIUM 100MG CAPSULE PO SCH ×2 (08:59→17:05)
[2019-06-30] MEDS: CARVEDILOL 12.5MG TABLET PO SCH (08:59)
[2019-06-30] MEDS: OXYCODONE HCL/ACETAMINOPHEN 5/325MG TABLET PO PRN ×2 (09:46→17:06)
[2019-06-30] MEDS: LACTULOSE 20G/30ML UDC PO PRN (17:56)
[2019-06-30] MEDS: ATORVASTATIN CALCIUM 10MG TABLET PO SCH (20:02)
[2019-06-30] MEDS: CARVEDILOL 6.25 MG TABLET PO SCH (20:03)
[2019-06-30] MEDS: ONDANSETRON HCL 4MG/2ML INJ IV PRN (22:56)
[2019-07-01] VITALS (12 sets, daily range): BP systolic 101–144; BP diastolic 53–90
[2019-07-01] MEDS: PIPERACILLIN/TAZOBACTAM 3.375 G in DEXT 5% WATER 100 ML IV SCH ×5 (00:40→23:44)
[2019-07-01] MEDS: IPRATROPIUM/ALBUTEROL 0.5-3(2.5)MG/3ML NEB HHN SCH ×5 (00:41→20:26)
[2019-07-01] MEDS: METOCLOPRAMIDE HCL 10MG/2ML VIAL IV SCH ×4 (02:39→21:34)
[2019-07-01] MEDS: OXYCODONE HCL/ACETAMINOPHEN 5/325MG TABLET PO PRN ×2 (03:51→21:32)
[2019-07-01] MEDS: GABAPENTIN 100MG CAPSULE PO SCH ×3 (06:08→21:35)
[2019-07-01] MEDS: SODIUM CHLORIDE 0.9% INJ 3ML FLUSH IVF SCH ×3 (06:08→21:35)
[2019-07-01] MEDS: BLOOD SUGAR DIAGNOSTIC STRIP TEST SCH ×4 (06:09→21:00)
[2019-07-01] MEDS: INSULIN LISPRO 100 UNITS/ML SUBCUT SCH ×4 (07:20→21:00)
[2019-07-01 07:30] LABS: CHLORIDE 98 mEq/L (98-107)
[2019-07-01 07:33] LABS: HEMATOCRIT 30.4 % (42.0-52.0); HEMOGLOBIN 10.2 g/dL (14.0-18.0); MEAN CORPUSCULAR HEMOGLOBIN 30.8 pg (28.0-32.0); MEAN CORPUSCULAR VOLUME 91.9 fL (80.0-94.0); PLATELET 189 x1000/uL (130-400); RED CELL DISTRIBUTION WIDTH 13.8 % (11.6-14.6)
[2019-07-01] MEDS: COLCHICINE 0.6MG TABLET PO SCH (08:33)
[2019-07-01] MEDS: DOCUSATE SODIUM 100MG CAPSULE PO SCH ×2 (08:33→19:07)
[2019-07-01] MEDS: FAMOTIDINE 20MG TABLET PO SCH (08:33)
[2019-07-01] MEDS: LOSARTAN POTASSIUM 50 MG TABLET PO SCH (08:36)
[2019-07-01] MEDS: CARVEDILOL 6.25 MG TABLET PO SCH ×2 (08:36→21:31)
[2019-07-01] MEDS: APIXABAN 5 MG TABLET PO SCH (21:31)
[2019-07-01] MEDS: ATORVASTATIN CALCIUM 10MG TABLET PO SCH (21:31)
[2019-07-01] MEDS: GUAIFENESIN 200MG/10ML SUGAR FREE UDC PO PRN (21:33)
[2019-07-01] MEDS: LACTULOSE 20G/30ML UDC PO PRN (21:34)
[2019-07-02] VITALS (12 sets, daily range): BP systolic 104–158; BP diastolic 47–89
[2019-07-02] MEDS: IPRATROPIUM/ALBUTEROL 0.5-3(2.5)MG/3ML NEB HHN SCH ×6 (00:57→20:59)
[2019-07-02] MEDS: METOCLOPRAMIDE HCL 10MG/2ML VIAL IV SCH ×4 (02:00→20:38)
[2019-07-02] MEDS: SODIUM CHLORIDE 0.9% INJ 3ML FLUSH IVF SCH ×3 (05:39→22:34)
[2019-07-02] MEDS: PIPERACILLIN/TAZOBACTAM 3.375 G in DEXT 5% WATER 100 ML IV SCH ×3 (05:39→17:34)
[2019-07-02] MEDS: GABAPENTIN 100MG CAPSULE PO SCH ×3 (05:39→22:33)
[2019-07-02] MEDS: BLOOD SUGAR DIAGNOSTIC STRIP TEST SCH ×4 (06:50→21:31)
[2019-07-02] MEDS: INSULIN LISPRO 100 UNITS/ML SUBCUT SCH ×4 (06:56→21:00)
[2019-07-02 07:52] LABS: HEMATOCRIT 30.6 % (42.0-52.0); HEMOGLOBIN 10.2 g/dL (14.0-18.0); MEAN CORPUSCULAR HEMOGLOBIN 30.4 pg (28.0-32.0); MEAN CORPUSCULAR VOLUME 91.4 fL (80.0-94.0); PLATELET 192 x1000/uL (130-400); RED BLOOD CELL COUNT 3.35 mill/uL (4.7-6.1); RED CELL DISTRIBUTION WIDTH 13.7 % (11.6-14.6)
[2019-07-02 07:53] LABS: CHLORIDE 100 mEq/L (98-107)
[2019-07-02] MEDS: APIXABAN 5 MG TABLET PO SCH ×2 (08:45→17:34)
[2019-07-02] MEDS: DOCUSATE SODIUM 100MG CAPSULE PO SCH ×2 (08:45→17:34)
[2019-07-02] MEDS: CARVEDILOL 6.25 MG TABLET PO SCH ×2 (08:45→20:38)
[2019-07-02] MEDS: COLCHICINE 0.6MG TABLET PO SCH (08:45)
[2019-07-02] MEDS: FAMOTIDINE 20MG TABLET PO SCH (08:45)
[2019-07-02] MEDS: LOSARTAN POTASSIUM 50 MG TABLET PO SCH (08:45)
[2019-07-02] MEDS: GUAIFENESIN 200MG/10ML SUGAR FREE UDC PO PRN ×2 (15:14→22:33)
[2019-07-02] MEDS: ATORVASTATIN CALCIUM 10MG TABLET PO SCH (20:37)
[2019-07-03] VITALS (12 sets, daily range): BP systolic 113–151; BP diastolic 47–85
[2019-07-03] MEDS: IPRATROPIUM/ALBUTEROL 0.5-3(2.5)MG/3ML NEB HHN SCH ×6 (00:24→21:10)
[2019-07-03] MEDS: METOCLOPRAMIDE HCL 10MG/2ML VIAL IV SCH ×4 (01:07→22:18)
[2019-07-03] MEDS: SODIUM CHLORIDE 0.9% INJ 3ML FLUSH IVF SCH ×3 (05:48→22:19)
[2019-07-03] MEDS: GABAPENTIN 100MG CAPSULE PO SCH ×3 (05:48→22:20)
[2019-07-03] MEDS: BLOOD SUGAR DIAGNOSTIC STRIP TEST SCH ×4 (05:57→21:00)
[2019-07-03 07:02] LABS: HEMATOCRIT 31.2 % (42.0-52.0); HEMOGLOBIN 10.4 g/dL (14.0-18.0); MEAN CORPUSCULAR HEMOGLOBIN 30.4 pg (28.0-32.0); MEAN CORPUSCULAR VOLUME 90.7 fL (80.0-94.0); PLATELET 207 x1000/uL (130-400); RED BLOOD CELL COUNT 3.44 mill/uL (4.7-6.1); RED CELL DISTRIBUTION WIDTH 13.9 % (11.6-14.6)
[2019-07-03] MEDS: INSULIN LISPRO 100 UNITS/ML SUBCUT SCH ×4 (07:20→21:00)
[2019-07-03 08:30] LABS: CHLORIDE 100 mEq/L (98-107)
[2019-07-03] MEDS: DOCUSATE SODIUM 100MG CAPSULE PO SCH ×2 (09:18→17:18)
[2019-07-03] MEDS: COLCHICINE 0.6MG TABLET PO SCH (09:18)
[2019-07-03] MEDS: OXYCODONE HCL/ACETAMINOPHEN 5/325MG TABLET PO PRN (09:18)
[2019-07-03] MEDS: CARVEDILOL 6.25 MG TABLET PO SCH ×2 (09:19→22:22)
[2019-07-03] MEDS: FAMOTIDINE 20MG TABLET PO SCH (09:19)
[2019-07-03] MEDS: LOSARTAN POTASSIUM 50 MG TABLET PO SCH (09:19)
[2019-07-03] MEDS: APIXABAN 5 MG TABLET PO SCH ×2 (09:19→17:18)
[2019-07-03] MEDS ORDERED: LACTULOSE 20G/30ML UDC PO NR (14:30)
[2019-07-03] MEDS: ATORVASTATIN CALCIUM 10MG TABLET PO SCH (22:18)
[2019-07-04] VITALS (12 sets, daily range): BP systolic 117–145; BP diastolic 55–82
[2019-07-04] MEDS: IPRATROPIUM/ALBUTEROL 0.5-3(2.5)MG/3ML NEB HHN SCH ×6 (01:13→22:09)
[2019-07-04] MEDS: METOCLOPRAMIDE HCL 10MG/2ML VIAL IV SCH ×4 (02:19→21:40)
[2019-07-04] MEDS: SODIUM CHLORIDE 0.9% INJ 3ML FLUSH IVF SCH ×3 (05:49→23:36)
[2019-07-04] MEDS: GABAPENTIN 100MG CAPSULE PO SCH ×3 (05:49→21:39)
[2019-07-04] MEDS: BLOOD SUGAR DIAGNOSTIC STRIP TEST SCH ×4 (05:54→21:40)
[2019-07-04] MEDS: INSULIN LISPRO 100 UNITS/ML SUBCUT SCH ×4 (07:20→21:00)
[2019-07-04] MEDS: GUAIFENESIN 200MG/10ML SUGAR FREE UDC PO PRN ×2 (09:18→21:47)
[2019-07-04] MEDS: LACTULOSE 20G/30ML UDC PO PRN (09:18)
[2019-07-04] MEDS: DOCUSATE SODIUM 100MG CAPSULE PO SCH ×2 (09:19→17:11)
[2019-07-04] MEDS: COLCHICINE 0.6MG TABLET PO SCH (09:19)
[2019-07-04] MEDS: FAMOTIDINE 20MG TABLET PO SCH (09:19)
[2019-07-04] MEDS: APIXABAN 5 MG TABLET PO SCH ×2 (09:19→17:11)
[2019-07-04] MEDS: LOSARTAN POTASSIUM 50 MG TABLET PO SCH (09:20)
[2019-07-04] MEDS: CARVEDILOL 6.25 MG TABLET PO SCH ×2 (09:20→21:39)
[2019-07-04] MEDS: OXYCODONE HCL/ACETAMINOPHEN 5/325MG TABLET PO PRN ×2 (09:26→23:35)
[2019-07-04] MEDS ORDERED: BISACODYL 10MG SUPP PR SCH (12:15)
[2019-07-04] MEDS: ATORVASTATIN CALCIUM 10MG TABLET PO SCH (21:39)
[2019-07-05] VITALS (12 sets, daily range): BP systolic 108–138; BP diastolic 47–83
[2019-07-05] MEDS: IPRATROPIUM/ALBUTEROL 0.5-3(2.5)MG/3ML NEB HHN SCH ×6 (00:39→21:11)
[2019-07-05] MEDS: METOCLOPRAMIDE HCL 10MG/2ML VIAL IV SCH ×4 (02:21→21:10)
[2019-07-05] MEDS: INSULIN LISPRO 100 UNITS/ML SUBCUT SCH ×4 (05:55→21:00)
[2019-07-05] MEDS: GABAPENTIN 100MG CAPSULE PO SCH ×3 (05:55→21:13)
[2019-07-05] MEDS: SODIUM CHLORIDE 0.9% INJ 3ML FLUSH IVF SCH ×3 (05:55→21:11)
[2019-07-05] MEDS: BLOOD SUGAR DIAGNOSTIC STRIP TEST SCH ×4 (05:55→21:32)
[2019-07-05] MEDS: DOCUSATE SODIUM 100MG CAPSULE PO SCH ×2 (09:00→17:28)
[2019-07-05] MEDS: APIXABAN 5 MG TABLET PO SCH ×2 (09:00→17:28)
[2019-07-05] MEDS: COLCHICINE 0.6MG TABLET PO SCH (09:00)
[2019-07-05] MEDS: LOSARTAN POTASSIUM 50 MG TABLET PO SCH (09:00)
[2019-07-05] MEDS: FAMOTIDINE 20MG TABLET PO SCH (09:00)
[2019-07-05] MEDS: CARVEDILOL 6.25 MG TABLET PO SCH ×2 (09:01→21:10)
[2019-07-05] MEDS: ATORVASTATIN CALCIUM 10MG TABLET PO SCH (21:10)
[2019-07-05] MEDS: OXYCODONE HCL/ACETAMINOPHEN 5/325MG TABLET PO PRN (21:35)
[2019-07-05] MEDS: GUAIFENESIN 200MG/10ML SUGAR FREE UDC PO PRN (22:18)
[2019-07-06] VITALS (12 sets, daily range): BP systolic 115–152; BP diastolic 49–84
[2019-07-06] MEDS: METOCLOPRAMIDE HCL 10MG/2ML VIAL IV SCH ×4 (01:27→21:55)
[2019-07-06] MEDS: IPRATROPIUM/ALBUTEROL 0.5-3(2.5)MG/3ML NEB HHN SCH ×6 (03:26→20:56)
[2019-07-06] MEDS: GABAPENTIN 100MG CAPSULE PO SCH ×3 (05:43→21:55)
[2019-07-06] MEDS: SODIUM CHLORIDE 0.9% INJ 3ML FLUSH IVF SCH ×3 (06:00→21:55)
[2019-07-06] MEDS: INSULIN LISPRO 100 UNITS/ML SUBCUT SCH ×4 (06:35→21:00)
[2019-07-06] MEDS: BLOOD SUGAR DIAGNOSTIC STRIP TEST SCH ×4 (06:35→21:38)
[2019-07-06 09:15] LABS: HEMATOCRIT 33.7 % (42.0-52.0); HEMOGLOBIN 11.2 g/dL (14.0-18.0); MEAN CORPUSCULAR HEMOGLOBIN 30.4 pg (28.0-32.0); MEAN CORPUSCULAR VOLUME 91.5 fL (80.0-94.0); PLATELET 257 x1000/uL (130-400); RED BLOOD CELL COUNT 3.68 mill/uL (4.7-6.1); RED CELL DISTRIBUTION WIDTH 13.6 % (11.6-14.6)
[2019-07-06 09:26] LABS: CHLORIDE 101 mEq/L (98-107)
[2019-07-06] MEDS: APIXABAN 5 MG TABLET PO SCH ×2 (09:39→17:00)
[2019-07-06] MEDS: DOCUSATE SODIUM 100MG CAPSULE PO SCH ×2 (09:39→17:00)
[2019-07-06] MEDS: FAMOTIDINE 20MG TABLET PO SCH (09:39)
[2019-07-06] MEDS: COLCHICINE 0.6MG TABLET PO SCH (09:39)
[2019-07-06] MEDS: LOSARTAN POTASSIUM 50 MG TABLET PO SCH (09:40)
[2019-07-06] MEDS: CARVEDILOL 6.25 MG TABLET PO SCH ×2 (09:40→21:55)
[2019-07-06] MEDS ORDERED: SORBITOL 70% SOLN 30ML PO NR (11:45)
[2019-07-06] MEDS ORDERED: NA PHOS,M-B/NA PHOS,DI-BA ENEMA 118ML PR NR (11:45)
[2019-07-06] MEDS: OXYCODONE HCL/ACETAMINOPHEN 5/325MG TABLET PO PRN (19:08)
[2019-07-06] MEDS: ATORVASTATIN CALCIUM 10MG TABLET PO SCH (21:55)
[2019-07-07] VITALS (12 sets, daily range): BP systolic 95–148; BP diastolic 35–84
[2019-07-07] MEDS: IPRATROPIUM/ALBUTEROL 0.5-3(2.5)MG/3ML NEB HHN SCH ×5 (00:47→21:02)
[2019-07-07] MEDS: ACETAMINOPHEN 325MG TABLET PO PRN ×2 (01:07→08:21)
[2019-07-07] MEDS: METOCLOPRAMIDE HCL 10MG/2ML VIAL IV SCH ×4 (03:05→20:00)
[2019-07-07 05:37] LABS: HEMATOCRIT. 28.8 % (42.0-52.0); HEMOGLOBIN. 9.7 g/dL (14.0-18.0); MEAN CORPUSCULAR HEMOGLOBIN 30.6 pg (28.0-32.0); MEAN PLATELET VOLUME 8.8 fl (7.4-10.4); PLATELET 219 x1000/uL (130-400); RED BLOOD CELL COUNT 3.16 mill/uL (4.7-6.1)
[2019-07-07 05:56] LABS: CHLORIDE 102 mEq/L (98-107)
[2019-07-07] MEDS: SODIUM CHLORIDE 0.9% INJ 3ML FLUSH IVF SCH ×3 (06:35→21:55)
[2019-07-07] MEDS: BLOOD SUGAR DIAGNOSTIC STRIP TEST SCH ×4 (06:35→21:00)
[2019-07-07] MEDS: GABAPENTIN 100MG CAPSULE PO SCH ×3 (06:35→21:55)
[2019-07-07] MEDS: INSULIN LISPRO 100 UNITS/ML SUBCUT SCH ×4 (07:20→21:00)
[2019-07-07] MEDS: LOSARTAN POTASSIUM 50 MG TABLET PO SCH (08:14)
[2019-07-07] MEDS: APIXABAN 5 MG TABLET PO SCH (08:14)
[2019-07-07] MEDS: COLCHICINE 0.6MG TABLET PO SCH (08:14)
[2019-07-07] MEDS: CARVEDILOL 6.25 MG TABLET PO SCH (08:14)
[2019-07-07] MEDS: DOCUSATE SODIUM 100MG CAPSULE PO SCH ×2 (08:14→17:26)
[2019-07-07] MEDS: FAMOTIDINE 20MG TABLET PO SCH (08:14)
[2019-07-07] MEDS ORDERED: BISACODYL 10MG SUPP PR PRN (12:30)
[2019-07-07] MEDS: OXYCODONE HCL/ACETAMINOPHEN 5/325MG TABLET PO PRN ×2 (15:18→21:57)
[2019-07-07 15:49] LABS: TOTAL IRON BINDING CAPACITY 200 ug/dL (250-450)
[2019-07-07] MEDS: POLYETHYLENE GLYCOL 3350 (17GM) 1 DOSE PACK PO SCH (16:00)
[2019-07-07 16:15] LABS: HEPATITIS B SURFACE ANTIGEN NEGATIVE
[2019-07-07] MEDS: SORBITOL 70% SOLN 30ML PO NR (16:30)
[2019-07-07 16:45] LABS: HEPATITIS A AB IGM NEGATIVE (NEGATIVE)
[2019-07-07 17:25] LABS: PLATELET ESTIMATE NORMAL
[2019-07-07] MEDS: PANTOPRAZOLE SODIUM 40 MG/VIAL IV SCH (18:28)
[2019-07-07] MEDS: ATORVASTATIN CALCIUM 10MG TABLET PO SCH (21:55)
[2019-07-08] VITALS (13 sets, daily range): BP systolic 98–159; BP diastolic 47–90
[2019-07-08] MEDS: IPRATROPIUM/ALBUTEROL 0.5-3(2.5)MG/3ML NEB HHN SCH ×6 (00:47→20:00)
[2019-07-08] MEDS ORDERED: BISACODYL 5MG TABLET PO NR ×3 (06:00→16:00)
[2019-07-08] MEDS ORDERED: METOCLOPRAMIDE HCL 10MG/2ML VIAL IV NR ×3 (06:00→16:00)
[2019-07-08] MEDS ORDERED: SORBITOL 70% SOLN 30ML PO NR ×2 (06:30→11:30)
[2019-07-08] MEDS: GABAPENTIN 100MG CAPSULE PO SCH ×3 (06:36→21:22)
[2019-07-08] MEDS: BLOOD SUGAR DIAGNOSTIC STRIP TEST SCH ×4 (06:37→21:23)
[2019-07-08] MEDS: SODIUM CHLORIDE 0.9% INJ 3ML FLUSH IVF SCH ×3 (06:37→21:28)
[2019-07-08 06:55] LABS: INR 1.2; PARTIAL THROMBOPLASTIN TIME 34.9 sec (23.4-31.0)
[2019-07-08 07:04] LABS: HEMATOCRIT. 30.6 % (42.0-52.0); HEMOGLOBIN. 10.1 g/dL (14.0-18.0); MEAN CORPUSCULAR HEMOGLOBIN 30.3 pg (28.0-32.0); MEAN CORPUSCULAR VOLUME 91.3 fL (80.0-94.0); MEAN PLATELET VOLUME 8.9 fl (7.4-10.4); PLATELET 255 x1000/uL (130-400); RED BLOOD CELL COUNT 3.35 mill/uL (4.7-6.1); RED CELL DISTRIBUTION WIDTH 13.9 % (11.6-14.6)
[2019-07-08] MEDS: INSULIN LISPRO 100 UNITS/ML SUBCUT SCH ×4 (07:20→21:00)
[2019-07-08 07:30] LABS: CHLORIDE 101 mEq/L (98-107)
[2019-07-08] MEDS: POLYETHYLENE GLYCOL 3350 (17GM) 1 DOSE PACK PO SCH (09:00)
[2019-07-08] MEDS: DOCUSATE SODIUM 100MG CAPSULE PO SCH ×2 (09:32→17:46)
[2019-07-08] MEDS: COLCHICINE 0.6MG TABLET PO SCH (09:32)
[2019-07-08] MEDS: FAMOTIDINE 20MG TABLET PO SCH (09:32)
[2019-07-08] MEDS: PANTOPRAZOLE SODIUM 40 MG/VIAL IV SCH ×2 (09:33→17:46)
[2019-07-08] MEDS: LOSARTAN POTASSIUM 50 MG TABLET PO SCH (09:33)
[2019-07-08] MEDS: HYDRALAZINE 20MG/ML VIAL IV PRN (09:51)
[2019-07-08] MEDS: OXYCODONE HCL/ACETAMINOPHEN 5/325MG TABLET PO PRN ×2 (11:37→21:23)
[2019-07-08 13:28] LABS: PLATELET ESTIMATE NORMAL
[2019-07-08] MEDS: FERROUS SULFATE 325MG TABLET PO SCH ×2 (14:50→17:46)
[2019-07-08] MEDS: SORBITOL 70% SOLN 30ML PO NR (17:47)
[2019-07-08] MEDS: ONDANSETRON HCL 4MG/2ML INJ IV PRN (19:12)
[2019-07-08] MEDS: ATORVASTATIN CALCIUM 10MG TABLET PO SCH (21:22)
[2019-07-08] MEDS: ASCORBIC ACID 500 MG TABLET PO SCH (21:22)
[2019-07-08] MEDS: GUAIFENESIN 200MG/10ML SUGAR FREE UDC PO PRN (21:27)
[2019-07-09] VITALS (12 sets, daily range): BP systolic 38–142; BP diastolic 17–77
[2019-07-09] MEDS: IPRATROPIUM/ALBUTEROL 0.5-3(2.5)MG/3ML NEB HHN SCH ×5 (00:35→16:21)
[2019-07-09] MEDS: GABAPENTIN 100MG CAPSULE PO SCH ×3 (06:00→21:28)
[2019-07-09] MEDS: INSULIN LISPRO 100 UNITS/ML SUBCUT SCH ×4 (06:35→20:31)
[2019-07-09] MEDS: BLOOD SUGAR DIAGNOSTIC STRIP TEST SCH ×4 (06:35→20:31)
[2019-07-09] MEDS: SODIUM CHLORIDE 0.9% INJ 3ML FLUSH IVF SCH ×3 (06:46→20:31)
[2019-07-09] MEDS: FERROUS SULFATE 325MG TABLET PO SCH ×3 (07:20→18:08)
[2019-07-09 07:23] LABS: BASOPHILS % 0.4 % (0.0-2.0); EOSINOPHILS % 0.7 % (0.0-5.0); HEMATOCRIT. 29.1 % (42.0-52.0); HEMOGLOBIN. 9.8 g/dL (14.0-18.0); LYMPHOCYTES % 7.7 % (20.0-50.0); MEAN CORPUSCULAR HEMOGLOBIN 30.6 pg (28.0-32.0); MEAN CORPUSCULAR VOLUME 91.3 fL (80.0-94.0); MEAN PLATELET VOLUME 8.8 fl (7.4-10.4); MONOCYTES % 10.9 % (2.0-8.0); NEUTROPHILS % 80.3 % (40.0-76.0); PLATELET 242 x1000/uL (130-400); RED BLOOD CELL COUNT 3.18 mill/uL (4.7-6.1); RED CELL DISTRIBUTION WIDTH 14.1 % (11.6-14.6)
[2019-07-09 08:03] LABS: CHLORIDE 107 mEq/L (98-107)
[2019-07-09] MEDS: DOCUSATE SODIUM 100MG CAPSULE PO SCH ×2 (08:32→18:08)
[2019-07-09] MEDS: PANTOPRAZOLE SODIUM 40 MG/VIAL IV SCH ×2 (08:43→18:08)
[2019-07-09] MEDS ORDERED: POTASSIUM CHLORIDE INJ 40 MEQ in DEXT 5% WATER 500 ML IV SCH (11:00)
[2019-07-09] MEDS ORDERED: BACTERIOSTATIC SODIUM CHLORIDE 0.9% 30ML VIAL IJ ONE (11:22)
[2019-07-09] MEDS ORDERED: MIDAZOLAM HCL 5 MG/5 ML VIAL ONE (11:39)
[2019-07-09] MEDS ORDERED: FENTANYL CITRATE/PF 50MCG/ML 2ML VIAL ONE (11:40)
[2019-07-09] MEDS ORDERED: MIDAZOLAM HCL 5 MG/5 ML VIAL IV PRN (11:45)
[2019-07-09] MEDS ORDERED: FENTANYL CITRATE/PF 50MCG/ML 2ML VIAL IV PRN (11:46)
[2019-07-09] MEDS ORDERED: DIPHENHYDRAMINE 50MG/ML VIAL ONE (11:59)
[2019-07-09] MEDS ORDERED: DIPHENHYDRAMINE 50MG/ML VIAL IV PRN (12:07)
[2019-07-09] MEDS: COLCHICINE 0.6MG TABLET PO SCH (14:25)
[2019-07-09] MEDS: FAMOTIDINE 20MG TABLET PO SCH (14:26)
[2019-07-09] MEDS: ASCORBIC ACID 500 MG TABLET PO SCH ×2 (14:26→20:30)
[2019-07-09] MEDS: LOSARTAN POTASSIUM 50 MG TABLET PO SCH (14:26)
[2019-07-09] MEDS: POLYETHYLENE GLYCOL 3350 (17GM) 1 DOSE PACK PO SCH (14:26)
[2019-07-09] MEDS ORDERED: DIATR MEGLU/DIATRIZOATE SOLN 30ML PO SCH (14:30)
[2019-07-09] MEDS: ATORVASTATIN CALCIUM 10MG TABLET PO SCH (20:30)
== END 2019-07-09 22:16 | DRG 981 ==
LOC: ER 12:29 → 7WST 16:26 → ENRESERV 23:15 → CVICU 06-26 13:10 → 3WST 06-30 23:39
PROVIDERS: ADMIT Internal Medicine; ATTEND Internal Medicine
PROC: 0W9940Z Drainage of Right Pleural Cavity with Drainage Device, Percutaneous Endoscopic Approach (ICD-10-PCS; principal; 2019-06-23)
PROC: 0BBN4ZX Excision of Right Pleura, Percutaneous Endoscopic Approach, Diagnostic (ICD-10-PCS; 2019-06-23)
PROC: 3E0L4GC Introduction of Other Therapeutic Substance into Pleural Cavity, Percutaneous Endoscopic Approach (ICD-10-PCS; 2019-06-23)
PROC: 0BJ08ZZ Inspection of Tracheobronchial Tree, Via Natural or Artificial Opening Endoscopic (ICD-10-PCS; 2019-06-23)
PROC: 0DB78ZX Excision of Stomach, Pylorus, Via Natural or Artificial Opening Endoscopic, Diagnostic (ICD-10-PCS; 2019-07-09)
PROC: 0DJD8ZZ Inspection of Lower Intestinal Tract, Via Natural or Artificial Opening Endoscopic (ICD-10-PCS; 2019-07-09)
DX: I11.0 Hypertensive heart disease with heart failure (principal); J96.01 Acute respiratory failure with hypoxia; I48.20 Chronic atrial fibrillation, unspecified; E46 Unspecified protein-calorie malnutrition; E87.1 Hypo-osmolality and hyponatremia; K56.7 Ileus, unspecified; J90 Pleural effusion, not elsewhere classified; K29.70 Gastritis, unspecified, without bleeding; I50.33 Acute on chronic diastolic (congestive) heart failure; D64.9 Anemia, unspecified; K64.8 Other hemorrhoids; R74.0 Nonspecific elevation of levels of transaminase and lactic acid dehydrogenase [LDH]; R74.8 Abnormal levels of other serum enzymes; K59.00 Constipation, unspecified; K80.20 Calculus of gallbladder without cholecystitis without obstruction; E11.9 Type 2 diabetes mellitus without complications; E78.5 Hyperlipidemia, unspecified; E87.6 Hypokalemia; K63.89 Other specified diseases of intestine; Z79.01 Long term (current) use of anticoagulants; Z87.11 Personal history of peptic ulcer disease; Z82.49 Family history of ischemic heart disease and other diseases of the circulatory system; Z79.899 Other long term (current) drug therapy; Z68.22 Body mass index [BMI] 22.0-22.9, adult
CPT/HCPCS: 36415; 36600; 71045; 71250; 74018; 76700; 80048; 80053; 80061; 81003; 82105; 82375; 82728; 82805; 82962; 83036; 83540; 83550; 83605; 83615; 83880; 84443; 84484; 85025; 85027; 85576; 86301; 86705; 86709; 86803; 86850; 86900; 86920; 87070; 87075; 87102; 87116; 87340; 88108; 88305; 88312; 88313; 88331; 93005; 93306; 93970; 94640; 96365; 97110; 97116; 97162; 97166; 97530; 97535; 99152; 99285; C9113; J0171; J0360; J0690; J1100; J1200; J1815; J1940; J1956; J2250; J2270; J2405; J2543; J2704; J2710; J2765; J3010; J3480; J3490; J7040; J7060; P9041; Q9963; G0500

== ENCOUNTER 2019-09-03 13:29 | Inpatient (IN) | payer MEDICARE, MEDICAID ==
[2019-09-03] VITALS (12 sets, daily range): BP systolic 98–139; BP diastolic 50–77
[~2019-09-03] VITALS: Ht 175.3 cm; Wt 75.3 kg
[~2019-09-03 13:29] MED LIST: ALBU05 NEB; APIX5TAB MT; CARV12.545 MT; DICL75TA5 MT; EZET10TA13 MT; FLUT1BLS9 IH; GABA-529 MT; LOSA50TA41 MT; POTA8CAP20 MT; PRAV40TA58 MT
[2019-09-03 14:23] LABS: BG BASE EXCESS -6.8 mmol/L (-2.0-2.0); BG CARBOXYHEMOGLOBIN 0.3 % (0.5-1.5); BG DEOXYHEMOGLOBIN 0.9 % (0.0-5.0); BG FRACTION INSPIRED OXYGEN 100; BG HCO3 ACT 18.5 mmol/L (22.0-26.0); BG METHEMOGLOBIN 0.3 % (0.0-1.5); BG OXYGEN SATURATION 99.1 % (92.0-98.5); BG OXYHEMOGLOBIN 98.5 % (94.0-97.0); BG PCO2 35.9 mmHg (35.0-45.0); BG PO2 206.7 mmHg (75.0-100.0); BG SAMPLE SITE RIGHT BRACHIAL; BG TOTAL HEMOGLOBIN 9.2 g/dL (12.0-18.0); BG VENT MODE MASK - NRB
[2019-09-03 14:24] LABS: HEMATOCRIT. 27.6 % (42.0-52.0); MEAN CORPUSCULAR HEMOGLOBIN 28.9 pg (28.0-32.0); MEAN CORPUSCULAR VOLUME 88.8 fL (80.0-94.0); MEAN PLATELET VOLUME 8.6 fl (7.4-10.4); PLATELET 202 x1000/uL (130-400); RED BLOOD CELL COUNT 3.11 mill/uL (4.7-6.1); RED CELL DISTRIBUTION WIDTH 15.3 % (11.6-14.6)
[2019-09-03 14:35] LABS: CHLORIDE 107 mEq/L (98-107)
[2019-09-03 14:52] LABS: PLATELET ESTIMATE NORMAL
[2019-09-03] MEDS ORDERED: VANCOMYCIN 1 G PREMIX 200 ML IV ONE (15:15)
[2019-09-03] MEDS ORDERED: ENOXAPARIN 100MG/ML SYR SUBCUT ONE (15:15)
[2019-09-03] MEDS ORDERED: PIPERACILLIN/TAZ 3.375G PREMIX 50 ML IV ONE (15:15)
[2019-09-03] MEDS ORDERED: ASPIRIN 81MG TABLET PO ONE (15:15)
[2019-09-03] MEDS: DEXT 5%/0.45% NACL 1000ML 1,000 ML IV SCH (17:15)
[2019-09-03] MEDS ORDERED: NA PHOS,M-B/NA PHOS,DI-BA ENEMA 118ML PR PRN (17:15)
[2019-09-03] MEDS ORDERED: LORAZEPAM 0.5MG TABLET PO PRN (17:15)
[2019-09-03] MEDS ORDERED: SODIUM BICARBONATE 8.4% 1 MEQ/ML 50ML SYR IV NR (17:15)
[2019-09-03] MEDS ORDERED: ONDANSETRON HCL 4MG/2ML INJ IV PRN (17:15)
[2019-09-03] MEDS ORDERED: ACETAMINOPHEN 325MG TABLET PO PRN (17:15)
[2019-09-03] MEDS ORDERED: HYDROCODONE/ACETAMINOPHEN 5/325MG TABLET PO PRN (17:15)
[2019-09-03] MEDS ORDERED: DEXTROSE 50% WATER 50ML SYRINGE IV PRN (17:15)
[2019-09-03] MEDS ORDERED: IPRATROPIUM/ALBUTEROL 0.5-3(2.5)MG/3ML NEB NEB SCH (17:15)
[2019-09-03] MEDS ORDERED: NOREPINEPHRINE 8 MG in DEXT 5% WATER 492 ML IV PRN ×2 (17:15→18:15)
[2019-09-03] MEDS ORDERED: CLONIDINE 0.1MG TABLET PO PRN (17:15)
[2019-09-03] MEDS ORDERED: MAGNESIUM/ALUMINUM HYDROXIDE/SIMETHICONE 30ML UDC PO PRN (17:15)
[2019-09-03] MEDS ORDERED: ACETAMINOPHEN 650MG/20.3ML UDC GT PRN (17:15)
[2019-09-03] MEDS ORDERED: DIPHENHYDRAMINE 50MG/ML VIAL IV PRN (17:15)
[2019-09-03] MEDS ORDERED: SODIUM CHLORIDE 0.9% 500 ML IV ONE (17:15)
[2019-09-03] MEDS ORDERED: PIPERACILLIN/TAZOBACTAM 3.375 G in DEXT 5% WATER 100 ML IV SCH (17:15)
[2019-09-03 17:40] LABS: BG BASE EXCESS -5.2 mmol/L (-2.0-2.0); BG CARBOXYHEMOGLOBIN 0.3 % (0.5-1.5); BG DEOXYHEMOGLOBIN 1.7 % (0.0-5.0); BG HCO3 ACT 20.7 mmol/L (22.0-26.0); BG METHEMOGLOBIN 0.3 % (0.0-1.5); BG OXYGEN SATURATION 98.3 % (92.0-98.5); BG OXYHEMOGLOBIN 97.7 % (94.0-97.0); BG PCO2 41.7 mmHg (35.0-45.0); BG PH 7.313 (7.350-7.450); BG PO2 135.3 mmHg (75.0-100.0); BG SAMPLE SITE RIGHT RADIAL; BG TOTAL HEMOGLOBIN 9.5 g/dL (12.0-18.0); BG VENT MODE MASK - NRB
[2019-09-03] MEDS: FAMOTIDINE 20MG/2ML VIAL IV SCH (17:48)
[2019-09-03] MEDS ORDERED: INSULIN LISPRO 100 UNITS/ML SUBCUT SCH (18:20)
[2019-09-03] MEDS: METHYLPREDNISOLONE SOD SUCC 40 MG/ML VIAL IV SCH (18:30)
[2019-09-03] MEDS ORDERED: NOREPINEPHRINE 32 MG in DEXT 5% WATER 468 ML IV PRN (23:28)
[2019-09-03] MEDS: PIPERACILLIN/TAZOBACTAM 3.375 G in DEXT 5% WATER 100 ML IV SCH (23:32)
[2019-09-04] VITALS (92 sets, daily range): BP systolic 70–185; BP diastolic 24–98
[2019-09-04] MEDS ORDERED: VANCOMYCIN 1 G PREMIX 200 ML IV SCH
[2019-09-04 00:08] LABS: INR 1.3; PROTHROMBIN TIME 13.7 sec (9.6-11.0)
[2019-09-04 00:17] LABS: CREATINE KINASE MB FRACTION 1.9 ng/mL (0.5-3.6)
[2019-09-04] MEDS: IPRATROPIUM/ALBUTEROL 0.5-3(2.5)MG/3ML NEB NEB SCH ×4 (01:53→21:18)
[2019-09-04] MEDS: METHYLPREDNISOLONE SOD SUCC 40 MG/ML VIAL IV SCH ×2 (05:53→17:19)
[2019-09-04] MEDS: PIPERACILLIN/TAZOBACTAM 3.375 G in DEXT 5% WATER 100 ML IV SCH ×4 (05:54→23:53)
[2019-09-04 05:58] LABS: HEMATOCRIT. 31.2 % (42.0-52.0); HEMOGLOBIN. 10.2 g/dL (14.0-18.0); MEAN CORPUSCULAR HEMOGLOBIN 28.6 pg (28.0-32.0); MEAN CORPUSCULAR VOLUME 87.7 fL (80.0-94.0); MEAN PLATELET VOLUME 8.5 fl (7.4-10.4); PLATELET 218 x1000/uL (130-400); RED BLOOD CELL COUNT 3.56 mill/uL (4.7-6.1); RED CELL DISTRIBUTION WIDTH 15.7 % (11.6-14.6)
[2019-09-04 06:06] LABS: CHLORIDE 106 mEq/L (98-107)
[2019-09-04 06:26] LABS: CREATINE KINASE 47 IU/L (39-308)
[2019-09-04 06:29] LABS: CREATINE KINASE MB FRACTION 2.1 ng/mL (0.5-3.6)
[2019-09-04 07:47] LABS: PLATELET ESTIMATE NORMAL
[2019-09-04] MEDS ORDERED: LIDOCAINE HCL 1% 20ML VIAL (Pyxis) INJ ONE (08:43)
[2019-09-04] MEDS: BLOOD SUGAR DIAGNOSTIC STRIP TEST SCH ×4 (09:55→21:33)
[2019-09-04] MEDS: FAMOTIDINE 20MG/2ML VIAL IV SCH (10:18)
[2019-09-04] MEDS: DEXT 5%/0.45% NACL 1000ML 1,000 ML IV SCH (10:19)
[2019-09-04] MEDS: INSULIN LISPRO 100 UNITS/ML SUBCUT SCH ×4 (10:20→21:37)
[2019-09-04 11:13] LABS: BG BASE EXCESS -4.3 mmol/L (-2.0-2.0); BG CARBOXYHEMOGLOBIN 0.3 % (0.5-1.5); BG DEOXYHEMOGLOBIN 3.3 % (0.0-5.0); BG FRACTION INSPIRED OXYGEN 28; BG HCO3 ACT 20.9 mmol/L (22.0-26.0); BG METHEMOGLOBIN 0.3 % (0.0-1.5); BG OXYGEN SATURATION 96.7 % (92.0-98.5); BG OXYHEMOGLOBIN 96.1 % (94.0-97.0); BG PCO2 38.6 mmHg (35.0-45.0); BG PH 7.351 (7.350-7.450); BG PO2 88.9 mmHg (75.0-100.0); BG SAMPLE SITE RIGHT RADIAL; BG TOTAL HEMOGLOBIN 10.4 g/dL (12.0-18.0); BG VENT MODE NASAL CANNULA
[2019-09-04] MEDS: GUAIFENESIN 200MG/10ML SUGAR FREE UDC PO PRN ×2 (15:09→21:37)
[2019-09-04 17:07] LABS: CLARITY URINE CLOUDY (CLEAR); COLOR URINE YELLOW (YELLOW); KETONES URINE NEGATIVE (NEGATIVE); LEUKOCYTE ESTERASE URINE NEGATIVE (NEGATIVE); NITRITE URINE NEGATIVE (NEGATIVE); OCCULT BLOOD URINE NEGATIVE (NEGATIVE); PROTEIN URINE 1+ (NEGATIVE); SPECIFIC GRAVITY URINE 1.028 (1.005-1.030); UROBILINOGEN URINE 0.2 E.U./dL (0.2-1.0)
[2019-09-04] MEDS: MIDODRINE HCL 5MG TABLET PO SCH (17:18)
[2019-09-04] MEDS: APIXABAN 5 MG TABLET PO SCH (17:18)
[2019-09-04] MEDS ORDERED: VANCOMYCIN 1,000 MG in DEXT 5% WATER 250 ML IV SCH (18:00)
[2019-09-05] VITALS (48 sets, daily range): BP systolic 103–177; BP diastolic 23–115
[2019-09-05] MEDS: IPRATROPIUM/ALBUTEROL 0.5-3(2.5)MG/3ML NEB NEB SCH ×4 (02:25→21:15)
[2019-09-05] MEDS: DEXT 5%/0.45% NACL 1000ML 1,000 ML IV SCH (03:08)
[2019-09-05] MEDS: METHYLPREDNISOLONE SOD SUCC 40 MG/ML VIAL IV SCH ×2 (05:15→17:32)
[2019-09-05] MEDS: GUAIFENESIN 200MG/10ML SUGAR FREE UDC PO PRN ×2 (05:15→21:51)
[2019-09-05] MEDS: PIPERACILLIN/TAZOBACTAM 3.375 G in DEXT 5% WATER 100 ML IV SCH ×4 (05:15→23:36)
[2019-09-05 05:45] LABS: HEMOGLOBIN 9.3 g/dL (14.0-18.0); MEAN CORPUSCULAR HEMOGLOBIN 28.4 pg (28.0-32.0); MEAN CORPUSCULAR VOLUME 85.4 fL (80.0-94.0); PLATELET 206 x1000/uL (130-400); RED BLOOD CELL COUNT 3.28 mill/uL (4.7-6.1); RED CELL DISTRIBUTION WIDTH 15.2 % (11.6-14.6)
[2019-09-05 05:56] LABS: CHLORIDE 105 mEq/L (98-107)
[2019-09-05] MEDS: BLOOD SUGAR DIAGNOSTIC STRIP TEST SCH ×3 (08:06→21:00)
[2019-09-05] MEDS: INSULIN LISPRO 100 UNITS/ML SUBCUT SCH ×4 (08:07→22:03)
[2019-09-05] MEDS: MIDODRINE HCL 5MG TABLET PO SCH (09:00)
[2019-09-05 09:19] LABS: BG BASE EXCESS -3.9 mmol/L (-2.0-2.0); BG CARBOXYHEMOGLOBIN 0.6 % (0.5-1.5); BG DEOXYHEMOGLOBIN 2.9 % (0.0-5.0); BG FRACTION INSPIRED OXYGEN 21; BG HCO3 ACT 20.1 mmol/L (22.0-26.0); BG METHEMOGLOBIN 0.2 % (0.0-1.5); BG OXYGEN SATURATION 97.1 % (92.0-98.5); BG OXYHEMOGLOBIN 96.3 % (94.0-97.0); BG PCO2 32.5 mmHg (35.0-45.0); BG PO2 87.2 mmHg (75.0-100.0); BG SAMPLE SITE RIGHT RADIAL; BG TOTAL HEMOGLOBIN 9.5 g/dL (12.0-18.0); BG VENT MODE ROOM AIR
[2019-09-05] MEDS: APIXABAN 5 MG TABLET PO SCH ×2 (09:21→17:32)
[2019-09-05] MEDS: FAMOTIDINE 20MG/2ML VIAL IV SCH (09:21)
[2019-09-05] MEDS ORDERED: MIDODRINE HCL 5MG TABLET PO PRN (12:00)
[2019-09-05] MEDS: VANCOMYCIN 1,250 MG in DEXT 5% WATER 250 ML IV SCH (12:58)
[2019-09-05] MEDS: ACETYLCYSTEINE 100MG/ML 10% VIAL 4ML INH SCH ×2 (14:14→21:15)
[2019-09-06] VITALS (12 sets, daily range): BP systolic 119–159; BP diastolic 56–93
[2019-09-06] MEDS: IPRATROPIUM/ALBUTEROL 0.5-3(2.5)MG/3ML NEB NEB SCH ×4 (02:27→21:29)
[2019-09-06] MEDS: VANCOMYCIN 1,250 MG in DEXT 5% WATER 250 ML IV SCH (04:15)
[2019-09-06] MEDS: METHYLPREDNISOLONE SOD SUCC 40 MG/ML VIAL IV SCH (04:15)
[2019-09-06] MEDS: PIPERACILLIN/TAZOBACTAM 3.375 G in DEXT 5% WATER 100 ML IV SCH ×3 (04:15→17:47)
[2019-09-06 06:31] LABS: CHLORIDE 104 mEq/L (98-107)
[2019-09-06 06:32] LABS: HEMATOCRIT. 28.2 % (42.0-52.0); HEMOGLOBIN. 9.4 g/dL (14.0-18.0); MEAN CORPUSCULAR HEMOGLOBIN 28.2 pg (28.0-32.0); MEAN CORPUSCULAR VOLUME 85.1 fL (80.0-94.0); MEAN PLATELET VOLUME 8.8 fl (7.4-10.4); PLATELET 220 x1000/uL (130-400); RED BLOOD CELL COUNT 3.32 mill/uL (4.7-6.1); RED CELL DISTRIBUTION WIDTH 15.4 % (11.6-14.6)
[2019-09-06] MEDS: DEXT 5%/0.45% NACL 1000ML 1,000 ML IV SCH (06:45)
[2019-09-06] MEDS: BLOOD SUGAR DIAGNOSTIC STRIP TEST SCH ×4 (07:30→20:29)
[2019-09-06] MEDS: INSULIN LISPRO 100 UNITS/ML SUBCUT SCH ×4 (08:52→20:29)
[2019-09-06] MEDS: APIXABAN 5 MG TABLET PO SCH ×2 (08:53→17:46)
[2019-09-06] MEDS: FAMOTIDINE 20MG/2ML VIAL IV SCH (08:53)
[2019-09-06] MEDS: ACETYLCYSTEINE 100MG/ML 10% VIAL 4ML INH SCH ×2 (09:20→14:51)
[2019-09-06] MEDS ORDERED: POTASSIUM CHLORIDE 20MEQ TABLET SR PO NR (11:00)
[2019-09-06] MEDS: GUAIFENESIN 200MG/10ML SUGAR FREE UDC PO PRN (11:25)
[2019-09-06 17:58] LABS: PLATELET ESTIMATE NORMAL
[2019-09-07] VITALS (12 sets, daily range): BP systolic 114–152; BP diastolic 57–92
[2019-09-07] MEDS: PIPERACILLIN/TAZOBACTAM 3.375 G in DEXT 5% WATER 100 ML IV SCH ×5 (00:54→23:53)
[2019-09-07] MEDS: VANCOMYCIN 1,250 MG in DEXT 5% WATER 250 ML IV SCH ×2 (01:52→18:30)
[2019-09-07] MEDS: DEXT 5%/0.45% NACL 1000ML 1,000 ML IV SCH (01:52)
[2019-09-07] MEDS: ACETYLCYSTEINE 100MG/ML 10% VIAL 4ML INH SCH ×3 (03:10→15:11)
[2019-09-07] MEDS: IPRATROPIUM/ALBUTEROL 0.5-3(2.5)MG/3ML NEB NEB SCH ×4 (03:11→20:38)
[2019-09-07] MEDS: GUAIFENESIN 200MG/10ML SUGAR FREE UDC PO PRN ×2 (04:47→23:52)
[2019-09-07 07:57] LABS: CHLORIDE 101 mEq/L (98-107)
[2019-09-07] MEDS: INSULIN LISPRO 100 UNITS/ML SUBCUT SCH ×4 (08:00→21:00)
[2019-09-07] MEDS: BLOOD SUGAR DIAGNOSTIC STRIP TEST SCH ×4 (08:22→21:28)
[2019-09-07] MEDS: MULTIVITAMINS,THER W-MINERALS TABLET PO SCH (08:24)
[2019-09-07] MEDS: APIXABAN 5 MG TABLET PO SCH ×2 (08:24→17:41)
[2019-09-07] MEDS: METHYLPREDNISOLONE SOD SUCC 40 MG/ML VIAL IV SCH (08:25)
[2019-09-07] MEDS: FAMOTIDINE 20MG/2ML VIAL IV SCH (08:25)
[2019-09-08] VITALS (12 sets, daily range): BP systolic 109–148; BP diastolic 62–91
[2019-09-08] MEDS: ACETYLCYSTEINE 100MG/ML 10% VIAL 4ML INH SCH ×3 (01:22→15:43)
[2019-09-08] MEDS: IPRATROPIUM/ALBUTEROL 0.5-3(2.5)MG/3ML NEB NEB SCH ×4 (01:22→20:20)
[2019-09-08] MEDS: DEXT 5%/0.45% NACL 1000ML 1,000 ML IV SCH (02:34)
[2019-09-08] MEDS: PIPERACILLIN/TAZOBACTAM 3.375 G in DEXT 5% WATER 100 ML IV SCH ×3 (05:59→18:16)
[2019-09-08] MEDS: BLOOD SUGAR DIAGNOSTIC STRIP TEST SCH ×4 (07:39→21:03)
[2019-09-08] MEDS: INSULIN LISPRO 100 UNITS/ML SUBCUT SCH ×4 (08:00→21:00)
[2019-09-08] MEDS: MULTIVITAMINS,THER W-MINERALS TABLET PO SCH (09:42)
[2019-09-08] MEDS: FAMOTIDINE 20MG/2ML VIAL IV SCH (09:42)
[2019-09-08] MEDS: METHYLPREDNISOLONE SOD SUCC 40 MG/ML VIAL IV SCH (09:42)
[2019-09-08] MEDS: APIXABAN 5 MG TABLET PO SCH ×2 (09:42→12:23)
[2019-09-08] MEDS: GUAIFENESIN 200MG/10ML SUGAR FREE UDC PO PRN (10:47)
[2019-09-08 11:35] LABS: HEMATOCRIT. 29.8 % (42.0-52.0); HEMOGLOBIN. 9.8 g/dL (14.0-18.0); MEAN CORPUSCULAR VOLUME 85.2 fL (80.0-94.0); MEAN PLATELET VOLUME 8.1 fl (7.4-10.4); PLATELET 255 x1000/uL (130-400); RED BLOOD CELL COUNT 3.49 mill/uL (4.7-6.1); RED CELL DISTRIBUTION WIDTH 15.9 % (11.6-14.6)
[2019-09-08 11:40] LABS: CHLORIDE 106 mEq/L (98-107)
[2019-09-08] MEDS: VANCOMYCIN 1,250 MG in DEXT 5% WATER 250 ML IV SCH (12:13)
[2019-09-08] MEDS ORDERED: GUAIFENESIN/CODEINE 100-10MG/5ML UDC PO PRN (13:45)
[2019-09-08 13:52] LABS: PLATELET ESTIMATE NORMAL
[2019-09-08] MEDS: GUAIFENESIN/CODEINE 200-20MG/10ML UDC PO PRN ×2 (14:55→21:00)
[2019-09-08] MEDS: IPRATROPIUM/ALBUTEROL 0.5-3(2.5)MG/3ML NEB NEB PRN (15:43)
[2019-09-08 19:53] LABS: TOTAL IRON BINDING CAPACITY 215 ug/dL (250-450)
[2019-09-08] MEDS: DOCUSATE SODIUM 100MG CAPSULE PO PRN (21:01)
[2019-09-08 21:24] LABS: HEMATOCRIT 29.3 % (42.0-52.0); HEMOGLOBIN 9.9 g/dL (14.0-18.0)
[2019-09-09] VITALS (12 sets, daily range): BP systolic 122–159; BP diastolic 59–94
[2019-09-09] MEDS: PIPERACILLIN/TAZOBACTAM 3.375 G in DEXT 5% WATER 100 ML IV SCH ×4 (01:17→17:22)
[2019-09-09] MEDS: ACETYLCYSTEINE 100MG/ML 10% VIAL 4ML INH SCH ×3 (01:34→20:47)
[2019-09-09] MEDS: IPRATROPIUM/ALBUTEROL 0.5-3(2.5)MG/3ML NEB NEB SCH ×4 (01:34→20:43)
[2019-09-09] MEDS: DEXT 5%/0.45% NACL 1000ML 1,000 ML IV SCH (04:27)
[2019-09-09] MEDS: GUAIFENESIN/CODEINE 200-20MG/10ML UDC PO PRN ×3 (04:43→21:22)
[2019-09-09 05:57] LABS: HEMATOCRIT. 28.6 % (42.0-52.0); HEMOGLOBIN. 9.3 g/dL (14.0-18.0); MEAN CORPUSCULAR VOLUME 85.8 fL (80.0-94.0); MEAN PLATELET VOLUME 8.1 fl (7.4-10.4); PLATELET 230 x1000/uL (130-400); RED BLOOD CELL COUNT 3.33 mill/uL (4.7-6.1); RED CELL DISTRIBUTION WIDTH 15.3 % (11.6-14.6)
[2019-09-09] MEDS: BLOOD SUGAR DIAGNOSTIC STRIP TEST SCH ×4 (06:37→21:00)
[2019-09-09 07:51] LABS: CHLORIDE 108 mEq/L (98-107)
[2019-09-09] MEDS: INSULIN LISPRO 100 UNITS/ML SUBCUT SCH ×4 (08:00→21:00)
[2019-09-09] MEDS: METHYLPREDNISOLONE SOD SUCC 40 MG/ML VIAL IV SCH (10:04)
[2019-09-09] MEDS: FAMOTIDINE 20MG/2ML VIAL IV SCH (10:04)
[2019-09-09] MEDS: MULTIVITAMINS,THER W-MINERALS TABLET PO SCH (10:04)
[2019-09-09 13:25] LABS: PLATELET ESTIMATE NORMAL
[2019-09-10] VITALS (7 sets, daily range): BP systolic 120–143; BP diastolic 55–77
[2019-09-10] MEDS: IPRATROPIUM/ALBUTEROL 0.5-3(2.5)MG/3ML NEB NEB SCH ×3 (03:32→20:59)
[2019-09-10] MEDS: GUAIFENESIN/CODEINE 200-20MG/10ML UDC PO PRN ×2 (05:36→22:14)
[2019-09-10 06:14] LABS: CHLORIDE 105 mEq/L (98-107)
[2019-09-10 06:23] LABS: HEMATOCRIT 28.3 % (42.0-52.0); HEMOGLOBIN 9.4 g/dL (14.0-18.0); MEAN CORPUSCULAR HEMOGLOBIN 28.1 pg (28.0-32.0); MEAN CORPUSCULAR VOLUME 84.8 fL (80.0-94.0); PLATELET 244 x1000/uL (130-400); RED BLOOD CELL COUNT 3.33 mill/uL (4.7-6.1); RED CELL DISTRIBUTION WIDTH 15.8 % (11.6-14.6)
[2019-09-10] MEDS: BLOOD SUGAR DIAGNOSTIC STRIP TEST SCH ×4 (08:00→21:00)
[2019-09-10] MEDS: METHYLPREDNISOLONE SOD SUCC 40 MG/ML VIAL IV SCH (08:57)
[2019-09-10] MEDS: FAMOTIDINE 20MG/2ML VIAL IV SCH (08:57)
[2019-09-10] MEDS: MULTIVITAMINS,THER W-MINERALS TABLET PO SCH (08:58)
[2019-09-10] MEDS: INSULIN LISPRO 100 UNITS/ML SUBCUT SCH ×4 (08:58→22:40)
[2019-09-10] MEDS: IPRATROPIUM/ALBUTEROL 0.5-3(2.5)MG/3ML NEB NEB PRN (09:01)
[2019-09-10] MEDS: ACETYLCYSTEINE 100MG/ML 10% VIAL 4ML INH SCH ×2 (09:02→09:26)
[2019-09-10] MEDS ORDERED: FUROSEMIDE 40MG/4ML VIAL IVP SCH (12:15)
[2019-09-11] MEDS: IPRATROPIUM/ALBUTEROL 0.5-3(2.5)MG/3ML NEB NEB SCH ×4 (03:27→21:06)
[2019-09-11 06:17] LABS: HEMATOCRIT 28.8 % (42.0-52.0); HEMOGLOBIN 9.7 g/dL (14.0-18.0); MEAN CORPUSCULAR HEMOGLOBIN 28.5 pg (28.0-32.0); MEAN CORPUSCULAR VOLUME 84.4 fL (80.0-94.0); PLATELET 298 x1000/uL (130-400); RED BLOOD CELL COUNT 3.41 mill/uL (4.7-6.1); RED CELL DISTRIBUTION WIDTH 15.5 % (11.6-14.6)
[2019-09-11 06:23] LABS: CHLORIDE 103 mEq/L (98-107)
[2019-09-11] MEDS: BLOOD SUGAR DIAGNOSTIC STRIP TEST SCH ×4 (07:30→21:00)
[2019-09-11 08:00] VITALS: BP 163/90
[2019-09-11] MEDS: INSULIN LISPRO 100 UNITS/ML SUBCUT SCH ×4 (08:00→20:31)
[2019-09-11] MEDS: MULTIVITAMINS,THER W-MINERALS TABLET PO SCH (11:09)
[2019-09-11] MEDS: METHYLPREDNISOLONE SOD SUCC 40 MG/ML VIAL IV SCH (11:09)
[2019-09-11] MEDS: FAMOTIDINE 20MG/2ML VIAL IV SCH (11:10)
[2019-09-11 12:00] VITALS: BP 161/64
[2019-09-11] MEDS ORDERED: FUROSEMIDE 40MG/4ML VIAL IVP SCH (12:00)
[2019-09-11] MEDS ORDERED: DOCUSATE SODIUM 250MG CAPSULE PO SCH (12:15)
[2019-09-11 16:00] VITALS: BP 161/66
[2019-09-11] MEDS: FUROSEMIDE 40MG/4ML VIAL IV SCH ×2 (18:28→20:09)
[2019-09-11 20:00] VITALS: BP 150/67
[2019-09-11] MEDS: GUAIFENESIN/CODEINE 200-20MG/10ML UDC PO PRN (21:13)
[2019-09-11 22:00] VITALS: BP 124/58
[2019-09-12] VITALS (7 sets, daily range): BP systolic 127–146; BP diastolic 55–96
[2019-09-12] MEDS: IPRATROPIUM/ALBUTEROL 0.5-3(2.5)MG/3ML NEB NEB SCH ×3 (04:02→12:58)
[2019-09-12 06:03] LABS: CHLORIDE 100 mEq/L (98-107)
[2019-09-12 06:34] LABS: HEMOGLOBIN 9.8 g/dL (14.0-18.0); MEAN CORPUSCULAR HEMOGLOBIN 28.4 pg (28.0-32.0); MEAN CORPUSCULAR VOLUME 84.3 fL (80.0-94.0); PLATELET 306 x1000/uL (130-400); RED BLOOD CELL COUNT 3.44 mill/uL (4.7-6.1); RED CELL DISTRIBUTION WIDTH 15.9 % (11.6-14.6)
[2019-09-12] MEDS: INSULIN LISPRO 100 UNITS/ML SUBCUT SCH ×4 (08:00→21:00)
[2019-09-12] MEDS: BLOOD SUGAR DIAGNOSTIC STRIP TEST SCH ×4 (08:28→21:54)
[2019-09-12] MEDS: MULTIVITAMINS,THER W-MINERALS TABLET PO SCH (09:37)
[2019-09-12] MEDS: FAMOTIDINE 20MG/2ML VIAL IV SCH (09:37)
[2019-09-12] MEDS: METHYLPREDNISOLONE SOD SUCC 40 MG/ML VIAL IV SCH (09:37)
[2019-09-12] MEDS: FUROSEMIDE 40MG/4ML VIAL IV SCH ×2 (09:37→16:38)
[2019-09-12] MEDS ORDERED: HYDROCODONE/ACETAMINOPHEN 5/325MG TABLET PO PRN (15:30)
[2019-09-12] MEDS: GUAIFENESIN/CODEINE 200-20MG/10ML UDC PO PRN ×2 (16:38→22:21)
[2019-09-12] MEDS: DOCUSATE SODIUM 100MG CAPSULE PO PRN (22:21)
[2019-09-13] VITALS: BP 128/66
[2019-09-13 04:00] VITALS: BP 136/55
[2019-09-13] MEDS: GUAIFENESIN/CODEINE 200-20MG/10ML UDC PO PRN ×3 (06:03→22:11)
[2019-09-13] MEDS: INSULIN LISPRO 100 UNITS/ML SUBCUT SCH ×4 (06:29→21:00)
[2019-09-13] MEDS: BLOOD SUGAR DIAGNOSTIC STRIP TEST SCH ×4 (06:29→21:00)
[2019-09-13 06:59] LABS: HEMATOCRIT 29.4 % (42.0-52.0); HEMOGLOBIN 9.8 g/dL (14.0-18.0); MEAN CORPUSCULAR HEMOGLOBIN 28.1 pg (28.0-32.0); MEAN CORPUSCULAR VOLUME 83.9 fL (80.0-94.0); PLATELET 351 x1000/uL (130-400); RED CELL DISTRIBUTION WIDTH 16.1 % (11.6-14.6)
[2019-09-13 07:58] LABS: CHLORIDE 99 mEq/L (98-107)
[2019-09-13 08:30] VITALS: BP 135/54
[2019-09-13] MEDS: FAMOTIDINE 20MG/2ML VIAL IV SCH (09:34)
[2019-09-13] MEDS: METHYLPREDNISOLONE SOD SUCC 40 MG/ML VIAL IV SCH (09:34)
[2019-09-13] MEDS: FUROSEMIDE 40MG/4ML VIAL IV SCH (09:34)
[2019-09-13] MEDS: MULTIVITAMINS,THER W-MINERALS TABLET PO SCH (09:34)
[2019-09-13] MEDS: DOCUSATE SODIUM 100MG CAPSULE PO PRN (09:40)
[2019-09-13] MEDS ORDERED: LACTULOSE 20G/30ML UDC PO ONE (11:30)
[2019-09-13 11:45] VITALS: BP 114/63
[2019-09-13] MEDS: POLYETHYLENE GLYCOL 3350 (17GM) 1 DOSE PACK PO SCH (12:59)
[2019-09-13] MEDS: FERROUS SULFATE 325MG TABLET PO SCH ×2 (12:59→18:16)
[2019-09-13 15:40] VITALS: BP 110/69
[2019-09-13] MEDS: LACTULOSE 20G/30ML UDC PO SCH (18:15)
[2019-09-13 20:00] VITALS: BP 120/51
[2019-09-14] VITALS: BP 138/49
[2019-09-14] MEDS: LACTULOSE 20G/30ML UDC PO SCH
[2019-09-14 04:00] VITALS: BP 142/70
[2019-09-14] MEDS: BLOOD SUGAR DIAGNOSTIC STRIP TEST SCH ×2 (05:53→12:14)
[2019-09-14] MEDS: INSULIN LISPRO 100 UNITS/ML SUBCUT SCH ×2 (06:22→12:14)
[2019-09-14] MEDS: FERROUS SULFATE 325MG TABLET PO SCH ×2 (06:22→12:42)
[2019-09-14 07:38] LABS: CHLORIDE 97 mEq/L (98-107); HEMATOCRIT 29.9 % (42.0-52.0); HEMOGLOBIN 10.1 g/dL (14.0-18.0); MEAN CORPUSCULAR HEMOGLOBIN 28.7 pg (28.0-32.0); MEAN CORPUSCULAR VOLUME 84.7 fL (80.0-94.0); PLATELET 383 x1000/uL (130-400); RED BLOOD CELL COUNT 3.53 mill/uL (4.7-6.1); RED CELL DISTRIBUTION WIDTH 16.3 % (11.6-14.6)
[2019-09-14 08:00] VITALS: BP 144/66
[2019-09-14] MEDS: IPRATROPIUM/ALBUTEROL 0.5-3(2.5)MG/3ML NEB NEB SCH ×2 (08:51→14:34)
[2019-09-14] MEDS ORDERED: FUROSEMIDE 40MG/4ML VIAL IV SCH (09:00)
[2019-09-14] MEDS: POLYETHYLENE GLYCOL 3350 (17GM) 1 DOSE PACK PO SCH (09:08)
[2019-09-14] MEDS: GUAIFENESIN/CODEINE 200-20MG/10ML UDC PO PRN (09:08)
[2019-09-14] MEDS: FAMOTIDINE 20MG/2ML VIAL IV SCH (09:08)
[2019-09-14] MEDS: MULTIVITAMINS,THER W-MINERALS TABLET PO SCH (09:08)
[2019-09-14] MEDS: METHYLPREDNISOLONE SOD SUCC 40 MG/ML VIAL IV SCH (09:08)
[2019-09-14 12:00] VITALS: BP 128/41
[2019-09-14] MEDS ORDERED: BENZ-16 MT (12:12)
[2019-09-14] MEDS ORDERED: FURO-151 MT (12:12)
[2019-09-14] MEDS ORDERED: POTA20TA82 MT (12:12)
[2019-09-14] MEDS ORDERED: DOCU250C14 MT (12:14)
[2019-09-14 15:34] VITALS: BP 121/64
[2019-09-14 16:00] VITALS: BP 121/61
[2019-09-14] MEDS ORDERED: LACTULOSE 20G/30ML UDC PO SCH (21:00)
[2019-09-15] MEDS ORDERED: LACTULOSE 20G/30ML UDC PO SCH (21:00)
== END 2019-09-14 16:25 | disposition home or self-care (01) | DRG 871 ==
LOC: ER 13:29 → CVICU 16:17 → ENRESERV 17:13 → CANRESERV 17:13 → EDBEDREQSVC 17:36 → ENRESERV 19:27 → CANRESERV 19:27 → ENRESERV 19:39 → 5EST 09-05 14:56 → 5WST 09-12 14:30
PROVIDERS: ADMIT Internal Medicine; ATTEND Internal Medicine
PROC: 02HV33Z Insertion of Infusion Device into Superior Vena Cava, Percutaneous Approach (ICD-10-PCS; principal; 2019-09-04)
PROC: B548ZZA Ultrasonography of Superior Vena Cava, Guidance (ICD-10-PCS; 2019-09-04)
DX: A41.9 Sepsis, unspecified organism (principal); J18.9 Pneumonia, unspecified organism; J96.00 Acute respiratory failure, unspecified whether with hypoxia or hypercapnia; I50.43 Acute on chronic combined systolic (congestive) and diastolic (congestive) heart failure; R65.21 Severe sepsis with septic shock; E43 Unspecified severe protein-calorie malnutrition; I48.20 Chronic atrial fibrillation, unspecified; R04.2 Hemoptysis; J91.8 Pleural effusion in other conditions classified elsewhere; N43.3 Hydrocele, unspecified; M47.816 Spondylosis without myelopathy or radiculopathy, lumbar region; E11.9 Type 2 diabetes mellitus without complications; D64.9 Anemia, unspecified; I11.0 Hypertensive heart disease with heart failure; Z99.81 Dependence on supplemental oxygen; Z79.01 Long term (current) use of anticoagulants; Z79.899 Other long term (current) drug therapy; Z68.24 Body mass index [BMI] 24.0-24.9, adult
CPT/HCPCS: 36415; 36600; 71045; 71250; 74018; 74176; 76604; 76937; 80048; 80053; 80202; 81003; 82270; 82375; 82550; 82553; 82728; 82805; 82962; 83540; 83550; 83880; 84145; 84443; 84484; 85014; 85018; 85025; 85027; 87070; 87804; 93005; 93306; 93970; 94640; 96365; 96368; 96372; 97116; 97162; 97530; 99285; C1725; J1650; J1815; J1940; J2543; J2920; J3370; J3490; J7060; J7608

== ENCOUNTER 2020-12-06 13:01 | Inpatient (IN) | payer MEDICARE, MEDICAID ==
[~2020-12-06] VITALS: Ht 167.6 cm; Wt 77.6 kg
[~2020-12-06 13:01] MED LIST changes: +BENZ-16 MT; +DOCU250C14 MT; +FURO-151 MT; +POTA20TA82 MT
[2020-12-06] MEDS ORDERED: ASPIRIN 325MG EC TABLET PO ONE ×2 (13:30→14:45)
[2020-12-06 14:01] LABS: HEMATOCRIT. 30.7 % (42.0-52.0); HEMOGLOBIN. 10.7 g/dL (14.0-18.0); MEAN CORPUSCULAR HEMOGLOBIN 29.9 pg (28.0-32.0); MEAN CORPUSCULAR VOLUME 85.8 fL (80.0-94.0); MEAN PLATELET VOLUME 9.1 fl (7.4-10.4); PLATELET 203 x1000/uL (130-400); RED BLOOD CELL COUNT 3.57 mill/uL (4.7-6.1); RED CELL DISTRIBUTION WIDTH 15.5 % (11.6-14.6)
[2020-12-06 14:08] LABS: CHLORIDE 106 mEq/L (98-107)
[2020-12-06 14:17] LABS: PLATELET ESTIMATE NORMAL
[2020-12-06] MEDS ORDERED: FUROSEMIDE 40MG TABLET PO ONE (14:45)
[2020-12-06] MEDS ORDERED: ONDANSETRON HCL 4MG/2ML INJ IV PRN (17:30)
[2020-12-06] MEDS ORDERED: IPRATROPIUM/ALBUTEROL 0.5-3(2.5)MG/3ML NEB NEB PRN (17:30)
[2020-12-06] MEDS ORDERED: ACETAMINOPHEN 325MG TABLET PO PRN (17:30)
[2020-12-06] MEDS ORDERED: DEXTROSE 50% WATER 50ML SYRINGE IV PRN (17:30)
[2020-12-06] MEDS: INSULIN LISPRO 100 UNITS/ML SUBCUT SCH ×2 (18:20→21:00)
[2020-12-06] MEDS: BLOOD SUGAR DIAGNOSTIC STRIP TEST SCH ×2 (18:42→21:00)
[2020-12-06] MEDS: APIXABAN 5 MG TABLET PO SCH (19:33)
[2020-12-06] MEDS: ATORVASTATIN CALCIUM 40MG TABLET PO SCH (23:05)
[2020-12-06] MEDS: CARVEDILOL 12.5MG TABLET PO SCH (23:06)
[2020-12-06 23:27] VITALS: BP 142/56
[2020-12-06 23:54] LABS: CREATINE KINASE MB FRACTION 1.6 ng/mL (0.5-3.6)
[2020-12-07] VITALS: BP 121/56
[2020-12-07] MEDS: GUAIFENESIN 200MG/10ML SUGAR FREE UDC PO PRN (01:20)
[2020-12-07] MEDS ORDERED: IOHEXOL-350 100 ML BOTTLE ONE (03:52)
[2020-12-07 04:00] VITALS: BP 107/56
[2020-12-07] MEDS: BLOOD SUGAR DIAGNOSTIC STRIP TEST SCH ×4 (07:25→21:06)
[2020-12-07] MEDS: INSULIN LISPRO 100 UNITS/ML SUBCUT SCH ×4 (07:25→21:45)
[2020-12-07 07:45] LABS: CHLORIDE 105 mEq/L (98-107)
[2020-12-07 07:57] LABS: CREATINE KINASE 81 IU/L (39-308)
[2020-12-07 07:58] LABS: CREATINE KINASE MB FRACTION 1.7 ng/mL (0.5-3.6)
[2020-12-07 08:05] VITALS: BP 135/59
[2020-12-07 08:12] LABS: HEMATOCRIT. 31.5 % (42.0-52.0); HEMOGLOBIN. 10.6 g/dL (14.0-18.0); MEAN CORPUSCULAR HEMOGLOBIN 29.2 pg (28.0-32.0); MEAN CORPUSCULAR VOLUME 87.1 fL (80.0-94.0); MEAN PLATELET VOLUME 9.4 fl (7.4-10.4); PLATELET 188 x1000/uL (130-400); RED BLOOD CELL COUNT 3.61 mill/uL (4.7-6.1); RED CELL DISTRIBUTION WIDTH 15.9 % (11.6-14.6)
[2020-12-07] MEDS ORDERED: FUROSEMIDE 40MG/4ML VIAL IVP SCH (09:00)
[2020-12-07] MEDS: LOSARTAN POTASSIUM 50 MG TABLET PO SCH (09:24)
[2020-12-07] MEDS: POTASSIUM CHLORIDE 20MEQ TABLET SR PO SCH (09:24)
[2020-12-07] MEDS: CARVEDILOL 12.5MG TABLET PO SCH ×2 (09:24→21:43)
[2020-12-07] MEDS: GABAPENTIN 100MG CAPSULE PO SCH ×3 (09:24→17:55)
[2020-12-07] MEDS: APIXABAN 5 MG TABLET PO SCH ×2 (09:24→17:55)
[2020-12-07] MEDS: EZETIMIBE 10MG TABLET PO SCH (09:24)
[2020-12-07 12:15] VITALS: BP 140/75
[2020-12-07 12:25] LABS: BG BASE EXCESS 2.9 mmol/L (-2.0-2.0); BG DEOXYHEMOGLOBIN 10.6 % (0.0-5.0); BG FRACTION INSPIRED OXYGEN 21; BG HCO3 ACT 28.9 mmol/L (22.0-26.0); BG METHEMOGLOBIN 0.2 % (0.0-1.5); BG OXYGEN SATURATION 89.3 % (92.0-98.5); BG OXYHEMOGLOBIN 88.2 % (94.0-97.0); BG PCO2 50.1 mmHg (35.0-45.0); BG PH 7.379 (7.350-7.450); BG PO2 55.9 mmHg (75.0-100.0); BG SAMPLE SITE RIGHT RADIAL; BG VENT MODE ROOM AIR
[2020-12-07 16:08] VITALS: BP 117/54
[2020-12-07 16:39] LABS: INR 1.1; PROTHROMBIN TIME 11.9 sec (9.6-11.0)
[2020-12-07] MEDS ORDERED: PROMETHAZINE/DEXTROMETHORPHAN 6.25-15MG/5ML BOTTLE 120ML PO PRN (17:00)
[2020-12-07 17:21] LABS: CLARITY URINE CLEAR (CLEAR); COLOR URINE YELLOW (YELLOW); KETONES URINE TRACE (NEGATIVE); LEUKOCYTE ESTERASE URINE 1+ (NEGATIVE); NITRITE URINE NEGATIVE (NEGATIVE); OCCULT BLOOD URINE NEGATIVE (NEGATIVE); PROTEIN URINE NEGATIVE (NEGATIVE); SPECIFIC GRAVITY URINE 1.029 (1.005-1.030); UROBILINOGEN URINE 0.2 E.U./dL (0.2-1.0)
[2020-12-07] MEDS: FUROSEMIDE 40MG/4ML VIAL IVP SCH (17:55)
[2020-12-07 18:28] LABS: PLATELET ESTIMATE NORMAL
[2020-12-07 20:00] VITALS: BP 120/65
[2020-12-07] MEDS: GUAIFENESIN 600MG ER TABLET PO SCH (21:42)
[2020-12-07] MEDS: ATORVASTATIN CALCIUM 40MG TABLET PO SCH (21:43)
[2020-12-07] MEDS: FAMOTIDINE 20MG TABLET PO SCH (21:43)
[2020-12-07] MEDS: LEVOFLOXACIN 500MG PREMIX 100 ML IV SCH (21:44)
[2020-12-07] MEDS: BENZONATATE 100MG CAPSULE PO PRN (23:28)
[2020-12-08] VITALS: BP 99/51
[2020-12-08] MEDS: IPRATROPIUM/ALBUTEROL 0.5-3(2.5)MG/3ML NEB HHN SCH ×6 (00:21→20:46)
[2020-12-08 04:00] VITALS: BP 98/54
[2020-12-08 06:46] LABS: HEMATOCRIT. 29.3 % (42.0-52.0); MEAN CORPUSCULAR HEMOGLOBIN 29.9 pg (28.0-32.0); MEAN CORPUSCULAR VOLUME 87.8 fL (80.0-94.0); PLATELET 172 x1000/uL (130-400); RED BLOOD CELL COUNT 3.34 mill/uL (4.7-6.1); RED CELL DISTRIBUTION WIDTH 15.6 % (11.6-14.6)
[2020-12-08 07:02] LABS: T4 FREE 1.36 ng/dL (0.76-1.46)
[2020-12-08] MEDS: BLOOD SUGAR DIAGNOSTIC STRIP TEST SCH ×4 (07:21→21:43)
[2020-12-08] MEDS: FUROSEMIDE 40MG/4ML VIAL IVP SCH ×2 (07:21→16:18)
[2020-12-08] MEDS: INSULIN LISPRO 100 UNITS/ML SUBCUT SCH ×4 (07:40→21:44)
[2020-12-08 08:11] VITALS: BP 109/44
[2020-12-08] MEDS: LOSARTAN POTASSIUM 50 MG TABLET PO SCH (09:00)
[2020-12-08] MEDS: CARVEDILOL 12.5MG TABLET PO SCH ×2 (09:00→21:43)
[2020-12-08] MEDS: GUAIFENESIN 600MG ER TABLET PO SCH ×2 (09:17→21:42)
[2020-12-08] MEDS: POTASSIUM CHLORIDE 20MEQ TABLET SR PO SCH (09:17)
[2020-12-08] MEDS: GABAPENTIN 100MG CAPSULE PO SCH ×3 (09:17→16:18)
[2020-12-08] MEDS: APIXABAN 5 MG TABLET PO SCH ×2 (09:17→16:18)
[2020-12-08] MEDS: EZETIMIBE 10MG TABLET PO SCH (09:17)
[2020-12-08] MEDS: BENZONATATE 100MG CAPSULE PO PRN ×2 (09:17→18:29)
[2020-12-08 11:57] VITALS: BP 103/46
[2020-12-08] MEDS ORDERED: METHYLPREDNISOLONE SOD SUCC 40 MG/ML VIAL IV NR (15:53)
[2020-12-08 16:39] VITALS: BP 105/47
[2020-12-08 18:23] LABS: PLATELET ESTIMATE NORMAL
[2020-12-08] MEDS: LEVOFLOXACIN 500MG PREMIX 100 ML IV SCH (18:29)
[2020-12-08 20:00] VITALS: BP 116/57
[2020-12-08] MEDS: ATORVASTATIN CALCIUM 40MG TABLET PO SCH (21:41)
[2020-12-08] MEDS: FAMOTIDINE 20MG TABLET PO SCH (21:42)
[2020-12-09] VITALS: BP 116/55
[2020-12-09] MEDS: IPRATROPIUM/ALBUTEROL 0.5-3(2.5)MG/3ML NEB HHN SCH ×6 (00:39→21:15)
[2020-12-09 04:00] VITALS: BP 144/64
[2020-12-09] MEDS: BENZONATATE 100MG CAPSULE PO PRN ×2 (06:12→16:32)
[2020-12-09] MEDS: FUROSEMIDE 40MG/4ML VIAL IVP SCH (06:16)
[2020-12-09] MEDS: BLOOD SUGAR DIAGNOSTIC STRIP TEST SCH ×4 (07:36→21:37)
[2020-12-09 07:53] LABS: HEMATOCRIT. 31.6 % (42.0-52.0); HEMOGLOBIN. 10.6 g/dL (14.0-18.0); MEAN CORPUSCULAR HEMOGLOBIN 29.3 pg (28.0-32.0); MEAN CORPUSCULAR VOLUME 87.2 fL (80.0-94.0); MEAN PLATELET VOLUME 9.5 fl (7.4-10.4); PLATELET 180 x1000/uL (130-400); RED BLOOD CELL COUNT 3.63 mill/uL (4.7-6.1); RED CELL DISTRIBUTION WIDTH 15.6 % (11.6-14.6)
[2020-12-09 08:12] VITALS: BP 144/72
[2020-12-09] MEDS: POTASSIUM CHLORIDE 20MEQ TABLET SR PO SCH (08:29)
[2020-12-09] MEDS: EZETIMIBE 10MG TABLET PO SCH (08:30)
[2020-12-09] MEDS: GABAPENTIN 100MG CAPSULE PO SCH ×3 (08:30→16:32)
[2020-12-09] MEDS: LOSARTAN POTASSIUM 50 MG TABLET PO SCH (08:30)
[2020-12-09] MEDS: GUAIFENESIN 600MG ER TABLET PO SCH ×2 (08:30→21:37)
[2020-12-09] MEDS: CARVEDILOL 12.5MG TABLET PO SCH ×2 (08:31→21:36)
[2020-12-09] MEDS: APIXABAN 5 MG TABLET PO SCH ×2 (08:31→16:32)
[2020-12-09] MEDS: INSULIN LISPRO 100 UNITS/ML SUBCUT SCH ×4 (08:31→21:00)
[2020-12-09 12:00] VITALS: BP 128/62
[2020-12-09 16:00] VITALS: BP_SYST 126; BP_SYST 136; BP_DIAS 84
[2020-12-09] MEDS ORDERED: METOCLOPRAMIDE HCL 10MG/2ML VIAL IV NR (17:30)
[2020-12-09] MEDS ORDERED: BISACODYL 10MG SUPP PR NR (17:30)
[2020-12-09] MEDS ORDERED: BENZ-16 MT (17:32)
[2020-12-09] MEDS ORDERED: FURO-151 MT (17:32)
[2020-12-09] MEDS ORDERED: DOCU-138 MT (17:32)
[2020-12-09] MEDS ORDERED: METOCLOPRAMIDE HCL 10MG/2ML VIAL IV SCH (18:00)
[2020-12-09 18:55] LABS: PLATELET ESTIMATE NORMAL
[2020-12-09 20:00] VITALS: BP 116/65
[2020-12-09] MEDS: FAMOTIDINE 20MG TABLET PO SCH (21:36)
[2020-12-09] MEDS: ATORVASTATIN CALCIUM 40MG TABLET PO SCH (21:36)
[2020-12-09] MEDS: METOCLOPRAMIDE HCL 10MG/2ML VIAL IV SCH (22:01)
[2020-12-10] VITALS: BP 115/49
[2020-12-10] MEDS ORDERED: LEVOFLOXACIN 750MG PREMIX 150 ML IV SCH
[2020-12-10] MEDS: IPRATROPIUM/ALBUTEROL 0.5-3(2.5)MG/3ML NEB HHN SCH ×6 (00:48→21:30)
[2020-12-10 04:00] VITALS: BP 125/62
[2020-12-10] MEDS: METOCLOPRAMIDE HCL 10MG/2ML VIAL IV SCH ×4 (06:23→21:13)
[2020-12-10 06:50] LABS: HEMATOCRIT. 30.5 % (42.0-52.0); HEMOGLOBIN. 10.2 g/dL (14.0-18.0); MEAN CORPUSCULAR HEMOGLOBIN 28.9 pg (28.0-32.0); MEAN CORPUSCULAR VOLUME 85.9 fL (80.0-94.0); MEAN PLATELET VOLUME 9.4 fl (7.4-10.4); PLATELET 210 x1000/uL (130-400); RED BLOOD CELL COUNT 3.54 mill/uL (4.7-6.1)
[2020-12-10] MEDS: BLOOD SUGAR DIAGNOSTIC STRIP TEST SCH ×4 (06:54→21:23)
[2020-12-10] MEDS: INSULIN LISPRO 100 UNITS/ML SUBCUT SCH ×4 (07:50→21:00)
[2020-12-10 08:00] VITALS: BP 125/60
[2020-12-10] MEDS: POTASSIUM CHLORIDE 20MEQ TABLET SR PO SCH (08:43)
[2020-12-10] MEDS: GABAPENTIN 100MG CAPSULE PO SCH ×3 (08:44→17:56)
[2020-12-10] MEDS: APIXABAN 5 MG TABLET PO SCH ×2 (08:44→17:56)
[2020-12-10] MEDS: BENZONATATE 100MG CAPSULE PO PRN ×2 (08:44→15:41)
[2020-12-10] MEDS: CARVEDILOL 12.5MG TABLET PO SCH ×2 (08:44→21:22)
[2020-12-10] MEDS: EZETIMIBE 10MG TABLET PO SCH (08:45)
[2020-12-10] MEDS: LOSARTAN POTASSIUM 50 MG TABLET PO SCH (08:45)
[2020-12-10] MEDS: GUAIFENESIN 600MG ER TABLET PO SCH ×2 (08:45→21:22)
[2020-12-10] MEDS ORDERED: METO5TAB86 MT (11:25)
[2020-12-10 12:00] VITALS: BP 139/60
[2020-12-10] MEDS ORDERED: LACTULOSE 20G/30ML UDC PO NR ×2 (12:30→16:00)
[2020-12-10] MEDS ORDERED: DOCUSATE SODIUM 100MG CAPSULE PO NR (12:30)
[2020-12-10 16:00] VITALS: BP 133/60
[2020-12-10 16:04] LABS: PLATELET ESTIMATE NORMAL
[2020-12-10] MEDS ORDERED: NA PHOS,M-B/NA PHOS,DI-BA ENEMA 118ML PR NR (18:15)
[2020-12-10 20:00] VITALS: BP 137/86
[2020-12-10] MEDS: ATORVASTATIN CALCIUM 40MG TABLET PO SCH (21:22)
[2020-12-10] MEDS: FAMOTIDINE 20MG TABLET PO SCH (21:22)
[2020-12-11] VITALS: BP 122/64
[2020-12-11] MEDS: IPRATROPIUM/ALBUTEROL 0.5-3(2.5)MG/3ML NEB HHN SCH ×6 (00:55→20:51)
[2020-12-11 04:00] VITALS: BP 133/59
[2020-12-11] MEDS: BLOOD SUGAR DIAGNOSTIC STRIP TEST SCH ×4 (06:20→21:20)
[2020-12-11] MEDS: METOCLOPRAMIDE HCL 10MG/2ML VIAL IV SCH ×4 (06:26→21:23)
[2020-12-11 07:27] LABS: HEMATOCRIT 30.1 % (42.0-52.0); HEMOGLOBIN 10.2 g/dL (14.0-18.0); MEAN CORPUSCULAR HEMOGLOBIN 29.1 pg (28.0-32.0); MEAN CORPUSCULAR VOLUME 86.2 fL (80.0-94.0); PLATELET 212 x1000/uL (130-400); RED BLOOD CELL COUNT 3.49 mill/uL (4.7-6.1); RED CELL DISTRIBUTION WIDTH 14.9 % (11.6-14.6)
[2020-12-11 07:45] LABS: CHLORIDE 106 mEq/L (98-107)
[2020-12-11] MEDS: INSULIN LISPRO 100 UNITS/ML SUBCUT SCH ×4 (07:50→21:00)
[2020-12-11 08:00] VITALS: BP 153/69
[2020-12-11] MEDS: POTASSIUM CHLORIDE 20MEQ TABLET SR PO SCH (10:42)
[2020-12-11] MEDS: BENZONATATE 100MG CAPSULE PO PRN ×2 (10:42→17:54)
[2020-12-11] MEDS: EZETIMIBE 10MG TABLET PO SCH (10:42)
[2020-12-11] MEDS: LOSARTAN POTASSIUM 50 MG TABLET PO SCH (10:42)
[2020-12-11] MEDS: GABAPENTIN 100MG CAPSULE PO SCH ×3 (10:42→17:55)
[2020-12-11] MEDS: CARVEDILOL 12.5MG TABLET PO SCH ×2 (10:42→21:19)
[2020-12-11] MEDS: GUAIFENESIN 600MG ER TABLET PO SCH ×2 (10:43→21:18)
[2020-12-11] MEDS: APIXABAN 5 MG TABLET PO SCH ×2 (10:43→17:55)
[2020-12-11] MEDS: DOCUSATE SODIUM 100MG CAPSULE PO SCH ×2 (11:12→17:54)
[2020-12-11] MEDS ORDERED: LACTULOSE 20G/30ML UDC PO NR (11:15)
[2020-12-11 12:00] VITALS: BP 130/59
[2020-12-11 16:00] VITALS: BP 143/78
[2020-12-11 20:00] VITALS: BP 165/79
[2020-12-11] MEDS: FAMOTIDINE 20MG TABLET PO SCH (21:18)
[2020-12-11] MEDS: ATORVASTATIN CALCIUM 40MG TABLET PO SCH (21:19)
[2020-12-12] VITALS: BP 132/80
[2020-12-12] MEDS: IPRATROPIUM/ALBUTEROL 0.5-3(2.5)MG/3ML NEB HHN SCH ×6 (01:15→21:04)
[2020-12-12] MEDS: METOCLOPRAMIDE HCL 10MG/2ML VIAL IV SCH ×4 (03:59→21:15)
[2020-12-12 04:00] VITALS: BP 128/71
[2020-12-12] MEDS ORDERED: MORPHINE SULFATE 2 MG/ML CPJ (NOT FOR IM USE) IV SCH (05:45)
[2020-12-12] MEDS: BLOOD SUGAR DIAGNOSTIC STRIP TEST SCH ×4 (06:23→21:15)
[2020-12-12 07:03] LABS: HEMATOCRIT. 31.4 % (42.0-52.0); HEMOGLOBIN. 10.6 g/dL (14.0-18.0); MEAN CORPUSCULAR HEMOGLOBIN 29.3 pg (28.0-32.0); MEAN CORPUSCULAR VOLUME 87.3 fL (80.0-94.0); PLATELET 220 x1000/uL (130-400)
[2020-12-12 07:12] LABS: CHLORIDE 108 mEq/L (98-107)
[2020-12-12] MEDS: INSULIN LISPRO 100 UNITS/ML SUBCUT SCH ×4 (07:17→21:00)
[2020-12-12 08:11] VITALS: BP 155/64
[2020-12-12] MEDS: POTASSIUM CHLORIDE 20MEQ TABLET SR PO SCH (08:40)
[2020-12-12] MEDS: LOSARTAN POTASSIUM 50 MG TABLET PO SCH (08:40)
[2020-12-12] MEDS: DOCUSATE SODIUM 100MG CAPSULE PO SCH ×2 (08:40→16:34)
[2020-12-12] MEDS: EZETIMIBE 10MG TABLET PO SCH (08:40)
[2020-12-12] MEDS: APIXABAN 5 MG TABLET PO SCH ×2 (08:40→16:34)
[2020-12-12] MEDS: GUAIFENESIN 600MG ER TABLET PO SCH ×2 (08:40→21:14)
[2020-12-12] MEDS: GABAPENTIN 100MG CAPSULE PO SCH ×3 (08:40→16:34)
[2020-12-12] MEDS: BENZONATATE 100MG CAPSULE PO PRN (08:40)
[2020-12-12] MEDS: CARVEDILOL 12.5MG TABLET PO SCH ×2 (08:40→21:14)
[2020-12-12 12:03] VITALS: BP 150/74
[2020-12-12] MEDS ORDERED: BISACODYL 10MG SUPP PR NR (13:30)
[2020-12-12 15:22] LABS: PLATELET ESTIMATE NORMAL
[2020-12-12 15:44] VITALS: BP 133/59
[2020-12-12] MEDS ORDERED: NA PHOS,M-B/NA PHOS,DI-BA ENEMA 118ML PR NR (18:00)
[2020-12-12 20:00] VITALS: BP 104/56
[2020-12-12] MEDS: FAMOTIDINE 20MG TABLET PO SCH (21:14)
[2020-12-12] MEDS: ATORVASTATIN CALCIUM 40MG TABLET PO SCH (21:14)
[2020-12-13] VITALS: BP 115/53
[2020-12-13] MEDS: IPRATROPIUM/ALBUTEROL 0.5-3(2.5)MG/3ML NEB HHN SCH ×6 (00:47→21:42)
[2020-12-13 04:00] VITALS: BP 118/62
[2020-12-13] MEDS: BENZONATATE 100MG CAPSULE PO PRN ×2 (04:57→17:42)
[2020-12-13] MEDS: METOCLOPRAMIDE HCL 10MG/2ML VIAL IV SCH ×4 (04:57→22:48)
[2020-12-13] MEDS: BLOOD SUGAR DIAGNOSTIC STRIP TEST SCH ×4 (06:32→20:21)
[2020-12-13 06:53] LABS: CHLORIDE 105 mEq/L (98-107)
[2020-12-13] MEDS: INSULIN LISPRO 100 UNITS/ML SUBCUT SCH ×4 (07:50→20:21)
[2020-12-13 08:09] LABS: HEMATOCRIT. 31.4 % (42.0-52.0); HEMOGLOBIN. 10.6 g/dL (14.0-18.0); MEAN CORPUSCULAR HEMOGLOBIN 29.3 pg (28.0-32.0); MEAN CORPUSCULAR VOLUME 87.2 fL (80.0-94.0); MEAN PLATELET VOLUME 9.5 fl (7.4-10.4); PLATELET 216 x1000/uL (130-400); RED CELL DISTRIBUTION WIDTH 14.8 % (11.6-14.6)
[2020-12-13] MEDS: EZETIMIBE 10MG TABLET PO SCH (09:00)
[2020-12-13] MEDS: GUAIFENESIN 600MG ER TABLET PO SCH ×2 (09:00→20:21)
[2020-12-13] MEDS: GABAPENTIN 100MG CAPSULE PO SCH ×3 (09:00→17:42)
[2020-12-13] MEDS: APIXABAN 5 MG TABLET PO SCH ×2 (09:00→17:42)
[2020-12-13] MEDS: LOSARTAN POTASSIUM 50 MG TABLET PO SCH (09:00)
[2020-12-13] MEDS: CARVEDILOL 12.5MG TABLET PO SCH ×2 (09:00→20:21)
[2020-12-13] MEDS: DOCUSATE SODIUM 100MG CAPSULE PO SCH ×2 (09:00→17:42)
[2020-12-13] MEDS: POTASSIUM CHLORIDE 20MEQ TABLET SR PO SCH (09:00)
[2020-12-13] MEDS ORDERED: DIATR MEGLU/DIATRIZOATE SOLN 120ML ONE (09:38)
[2020-12-13 15:09] LABS: PLATELET ESTIMATE NORMAL
[2020-12-13 15:37] VITALS: BP 167/71
[2020-12-13] MEDS: FAMOTIDINE 20MG TABLET PO SCH (20:21)
[2020-12-13] MEDS: ATORVASTATIN CALCIUM 40MG TABLET PO SCH (20:21)
[2020-12-13 20:34] VITALS: BP 113/47
[2020-12-14 00:18] VITALS: BP 108/50
[2020-12-14] MEDS: IPRATROPIUM/ALBUTEROL 0.5-3(2.5)MG/3ML NEB HHN SCH ×4 (01:47→11:50)
[2020-12-14 04:00] VITALS: BP 119/57
[2020-12-14] MEDS: METOCLOPRAMIDE HCL 10MG/2ML VIAL IV SCH ×2 (04:58→10:04)
[2020-12-14 05:54] LABS: CHLORIDE 106 mEq/L (98-107)
[2020-12-14] MEDS: BLOOD SUGAR DIAGNOSTIC STRIP TEST SCH ×2 (06:31→12:11)
[2020-12-14 06:32] LABS: HEMATOCRIT. 30.9 % (42.0-52.0); HEMOGLOBIN. 10.3 g/dL (14.0-18.0); MEAN CORPUSCULAR HEMOGLOBIN 28.8 pg (28.0-32.0); MEAN CORPUSCULAR VOLUME 86.2 fL (80.0-94.0); MEAN PLATELET VOLUME 9.1 fl (7.4-10.4); PLATELET 233 x1000/uL (130-400); RED BLOOD CELL COUNT 3.59 mill/uL (4.7-6.1)
[2020-12-14] MEDS: INSULIN LISPRO 100 UNITS/ML SUBCUT SCH ×2 (07:13→12:11)
[2020-12-14 08:00] VITALS: BP 132/61
[2020-12-14] MEDS: GUAIFENESIN 600MG ER TABLET PO SCH (09:00)
[2020-12-14] MEDS: CARVEDILOL 12.5MG TABLET PO SCH (10:03)
[2020-12-14] MEDS: DOCUSATE SODIUM 100MG CAPSULE PO SCH (10:03)
[2020-12-14] MEDS: LOSARTAN POTASSIUM 50 MG TABLET PO SCH (10:03)
[2020-12-14] MEDS: GABAPENTIN 100MG CAPSULE PO SCH ×2 (10:04→12:38)
[2020-12-14] MEDS: POTASSIUM CHLORIDE 20MEQ TABLET SR PO SCH (10:04)
[2020-12-14] MEDS: EZETIMIBE 10MG TABLET PO SCH (10:04)
[2020-12-14] MEDS: APIXABAN 5 MG TABLET PO SCH (10:04)
[2020-12-14 11:32] LABS: PLATELET ESTIMATE NORMAL
[2020-12-14 12:00] VITALS: BP 120/60
[2020-12-14] MEDS: GUAIFENESIN 200MG/10ML SUGAR FREE UDC PO PRN (12:37)
[2020-12-14 14:18] VITALS: BP 120/60
== END 2020-12-14 16:36 | disposition home or self-care (01) | DRG 291 ==
LOC: ER 13:59 → 6WST 15:50 → ENRESERV 19:07
PROVIDERS: ADMIT Internal Medicine; ATTEND Internal Medicine
DX: I11.0 Hypertensive heart disease with heart failure (principal); J18.9 Pneumonia, unspecified organism; J96.00 Acute respiratory failure, unspecified whether with hypoxia or hypercapnia; I48.20 Chronic atrial fibrillation, unspecified; K56.7 Ileus, unspecified; N17.9 Acute kidney failure, unspecified; I50.33 Acute on chronic diastolic (congestive) heart failure; E11.9 Type 2 diabetes mellitus without complications; D64.9 Anemia, unspecified; K57.30 Diverticulosis of large intestine without perforation or abscess without bleeding; M47.816 Spondylosis without myelopathy or radiculopathy, lumbar region; K40.90 Unilateral inguinal hernia, without obstruction or gangrene, not specified as recurrent; Z20.822 Contact with and (suspected) exposure to COVID-19; N40.0 Benign prostatic hyperplasia without lower urinary tract symptoms; K80.20 Calculus of gallbladder without cholecystitis without obstruction; I25.10 Atherosclerotic heart disease of native coronary artery without angina pectoris; Z79.01 Long term (current) use of anticoagulants; Z79.899 Other long term (current) drug therapy; Z79.84 Long term (current) use of oral hypoglycemic drugs
CPT/HCPCS: 36415; 36600; 71045; 71275; 74018; 74176; 74250; 80048; 80053; 80061; 81003; 82330; 82375; 82550; 82553; 82805; 82962; 83735; 83880; 84439; 84443; 84484; 85025; 85027; 87426; 93005; 93306; 93970; 94640; 97116; 97162; 97530; 99285; J1815; J1940; J1956; J2270; J2405; J2765; J2920; Q9963; Q9967

== ENCOUNTER 2021-02-19 15:43 | Inpatient (IN) | payer MEDICARE, MEDICAID ==
[~2021-02-19] VITALS: Ht 175.3 cm; Wt 64.1 kg
[~2021-02-19 15:43] MED LIST changes: +DOCU-138 MT; +METO5TAB86 MT; -POTA20TA82 MT
[2021-02-19 17:15] LABS: BASOPHILS % 0.4 % (0.0-2.0); EOSINOPHILS % 1.8 % (0.0-5.0); HEMATOCRIT. 32.1 % (42.0-52.0); HEMOGLOBIN. 10.8 g/dL (14.0-18.0); MEAN CORPUSCULAR HEMOGLOBIN 28.7 pg (28.0-32.0); MONOCYTES % 12.9 % (2.0-8.0); NEUTROPHILS % 76.9 % (40.0-76.0); PLATELET 214 x1000/uL (130-400); RED BLOOD CELL COUNT 3.78 mill/uL (4.7-6.1); RED CELL DISTRIBUTION WIDTH 15.8 % (11.6-14.6)
[2021-02-19 17:20] LABS: CHLORIDE 102 mEq/L (98-107)
[2021-02-19] MEDS ORDERED: FUROSEMIDE 40MG/4ML VIAL IV ONE (19:00)
[2021-02-19] MEDS ORDERED: ASPIRIN 81MG TABLET PO ONE (19:00)
[2021-02-19 21:47] LABS: CLARITY URINE CLEAR (CLEAR); COLOR URINE YELLOW (YELLOW); KETONES URINE NEGATIVE (NEGATIVE); LEUKOCYTE ESTERASE URINE TRACE (NEGATIVE); NITRITE URINE NEGATIVE (NEGATIVE); OCCULT BLOOD URINE NEGATIVE (NEGATIVE); PH URINE 6.5 (4.5-8.0); PROTEIN URINE NEGATIVE (NEGATIVE); SPECIFIC GRAVITY URINE 1.009 (1.005-1.030); UROBILINOGEN URINE 0.2 E.U./dL (0.2-1.0)
[2021-02-19 22:30] VITALS: BP 135/74
[2021-02-19 23:14] VITALS: BP 135/74
[2021-02-20] MEDS ORDERED: HYDROCODONE/ACETAMINOPHEN 5/325MG TABLET PO PRN (00:15)
[2021-02-20] MEDS ORDERED: ACETAMINOPHEN 325MG TABLET PO PRN (00:15)
[2021-02-20] MEDS ORDERED: DEXTROSE 50% WATER 50ML SYRINGE IV PRN (00:15)
[2021-02-20 04:00] VITALS: BP 164/71
[2021-02-20] MEDS: GABAPENTIN 100MG CAPSULE PO SCH ×3 (05:53→21:46)
[2021-02-20] MEDS: BLOOD SUGAR DIAGNOSTIC STRIP TEST SCH ×4 (05:54→21:44)
[2021-02-20] MEDS: INSULIN LISPRO 100 UNITS/ML SUBCUT SCH ×4 (06:11→21:48)
[2021-02-20 08:00] VITALS: BP 147/71
[2021-02-20 08:17] LABS: BASOPHILS % 0.6 % (0.0-2.0); EOSINOPHILS % 1.7 % (0.0-5.0); HEMATOCRIT. 35.1 % (42.0-52.0); HEMOGLOBIN. 11.5 g/dL (14.0-18.0); MEAN CORPUSCULAR HEMOGLOBIN 28.2 pg (28.0-32.0); MEAN CORPUSCULAR VOLUME 86.2 fL (80.0-94.0); MEAN PLATELET VOLUME 9.4 fl (7.4-10.4); MONOCYTES % 13.4 % (2.0-8.0); NEUTROPHILS % 75.3 % (40.0-76.0); PLATELET 212 x1000/uL (130-400); RED BLOOD CELL COUNT 4.07 mill/uL (4.7-6.1)
[2021-02-20 08:37] LABS: CHLORIDE 102 mEq/L (98-107)
[2021-02-20 08:44] LABS: LDL CHOLESTEROL 73 mg/dL (5-100)
[2021-02-20 08:45] LABS: HDL CHOLESTEROL 45 mg/dL (40-59)
[2021-02-20] MEDS ORDERED: FUROSEMIDE 40MG/4ML VIAL IVP SCH (09:00)
[2021-02-20] MEDS: DOCUSATE SODIUM 250MG CAPSULE PO SCH (09:25)
[2021-02-20] MEDS: APIXABAN 5 MG TABLET PO SCH ×2 (09:26→16:24)
[2021-02-20] MEDS: CARVEDILOL 12.5MG TABLET PO SCH ×2 (09:26→21:46)
[2021-02-20] MEDS: EZETIMIBE 10MG TABLET PO SCH (09:26)
[2021-02-20 12:00] VITALS: BP 129/71
[2021-02-20] MEDS ORDERED: LORAZEPAM 2MG/ML CPJ IV PRN (13:45)
[2021-02-20] MEDS ORDERED: ACETAMINOPHEN 650MG SUPP PR PRN (13:45)
[2021-02-20] MEDS ORDERED: NA PHOS,M-B/NA PHOS,DI-BA ENEMA 118ML PR PRN (13:45)
[2021-02-20] MEDS ORDERED: DIPHENHYDRAMINE 50MG/ML VIAL IV PRN (13:45)
[2021-02-20] MEDS: METHYLPREDNISOLONE SOD SUCC 40 MG/ML VIAL IV SCH (13:57)
[2021-02-20 16:00] VITALS: BP 147/56
[2021-02-20] MEDS: LACTULOSE 20G/30ML UDC PO PRN (16:36)
[2021-02-20 19:42] LABS: INR 1.1; PROTHROMBIN TIME 11.3 sec (9.6-11.0)
[2021-02-20 20:00] VITALS: BP 130/74
[2021-02-20] MEDS: GUAIFENESIN-DM 200MG-20MG/10ML UDC PO PRN (21:47)
[2021-02-21] VITALS: BP 138/62
[2021-02-21] MEDS: BENZONATATE 100MG CAPSULE PO PRN ×3 (00:12→20:03)
[2021-02-21] MEDS: IPRATROPIUM/ALBUTEROL 0.5-3(2.5)MG/3ML NEB HHN SCH ×4 (00:45→21:58)
[2021-02-21] MEDS: METHYLPREDNISOLONE SOD SUCC 40 MG/ML VIAL IV SCH ×2 (02:11→12:20)
[2021-02-21 04:00] VITALS: BP 148/62
[2021-02-21] MEDS: BLOOD SUGAR DIAGNOSTIC STRIP TEST SCH ×4 (06:19→20:46)
[2021-02-21] MEDS: GABAPENTIN 100MG CAPSULE PO SCH ×3 (06:23→20:49)
[2021-02-21] MEDS: INSULIN LISPRO 100 UNITS/ML SUBCUT SCH ×4 (06:25→20:48)
[2021-02-21 07:26] LABS: CHLORIDE 102 mEq/L (98-107)
[2021-02-21 07:27] LABS: HEMATOCRIT. 34.4 % (42.0-52.0); HEMOGLOBIN. 11.4 g/dL (14.0-18.0); MEAN CORPUSCULAR HEMOGLOBIN 28.4 pg (28.0-32.0); MEAN CORPUSCULAR VOLUME 85.8 fL (80.0-94.0); MEAN PLATELET VOLUME 9.1 fl (7.4-10.4); PLATELET 225 x1000/uL (130-400); RED BLOOD CELL COUNT 4.01 mill/uL (4.7-6.1); RED CELL DISTRIBUTION WIDTH 16.2 % (11.6-14.6)
[2021-02-21 08:00] VITALS: BP 150/64
[2021-02-21] MEDS: APIXABAN 5 MG TABLET PO SCH (08:11)
[2021-02-21] MEDS: CARVEDILOL 12.5MG TABLET PO SCH ×2 (08:11→20:49)
[2021-02-21] MEDS: FUROSEMIDE 40MG/4ML VIAL IVP SCH (08:12)
[2021-02-21] MEDS: ACETAMINOPHEN 325MG TABLET PO PRN (08:12)
[2021-02-21] MEDS: DOCUSATE SODIUM 250MG CAPSULE PO SCH (08:12)
[2021-02-21] MEDS: EZETIMIBE 10MG TABLET PO SCH (08:12)
[2021-02-21] MEDS: GUAIFENESIN-DM 200MG-20MG/10ML UDC PO PRN (08:13)
[2021-02-21 12:00] VITALS: BP 123/49
[2021-02-21] MEDS: PIPERACILLIN/TAZOBACTAM 3.375 G in DEXTROSE 5% WATER 50 ML IV SCH ×2 (15:24→20:46)
[2021-02-21 16:00] VITALS: BP 121/48
[2021-02-21 16:33] LABS: BG BASE EXCESS 7.2 mmol/L (-2.0-2.0); BG CARBOXYHEMOGLOBIN 1.2 % (0.5-1.5); BG DEOXYHEMOGLOBIN 6.2 % (0.0-5.0); BG FRACTION INSPIRED OXYGEN 21; BG HCO3 ACT 31.4 mmol/L (22.0-26.0); BG METHEMOGLOBIN 0.2 % (0.0-1.5); BG OXYGEN SATURATION 93.7 % (92.0-98.5); BG OXYHEMOGLOBIN 92.4 % (94.0-97.0); BG PCO2 42.8 mmHg (35.0-45.0); BG PH 7.483 (7.350-7.450); BG PO2 64.6 mmHg (75.0-100.0); BG SAMPLE SITE RIGHT RADIAL; BG TOTAL HEMOGLOBIN 11.5 g/dL (12.0-18.0); BG VENT MODE ROOM AIR
[2021-02-21 20:00] VITALS: BP 112/50
[2021-02-21] MEDS: ENOXAPARIN 80MG/0.8ML SYR SUBCUT SCH (20:47)
[2021-02-22] VITALS: BP 130/72
[2021-02-22] MEDS: METHYLPREDNISOLONE SOD SUCC 40 MG/ML VIAL IV SCH ×2 (00:02→13:27)
[2021-02-22 01:29] LABS: PLATELET ESTIMATE NORMAL
[2021-02-22] MEDS: IPRATROPIUM/ALBUTEROL 0.5-3(2.5)MG/3ML NEB HHN SCH ×3 (01:59→13:54)
[2021-02-22] MEDS: BENZONATATE 100MG CAPSULE PO PRN ×2 (03:34→13:27)
[2021-02-22 04:00] VITALS: BP 133/57
[2021-02-22] MEDS: PIPERACILLIN/TAZOBACTAM 3.375 G in DEXTROSE 5% WATER 50 ML IV SCH ×3 (06:13→21:35)
[2021-02-22] MEDS: INSULIN LISPRO 100 UNITS/ML SUBCUT SCH ×4 (06:14→21:35)
[2021-02-22] MEDS: GABAPENTIN 100MG CAPSULE PO SCH ×3 (06:16→21:25)
[2021-02-22] MEDS: BLOOD SUGAR DIAGNOSTIC STRIP TEST SCH ×4 (06:16→20:53)
[2021-02-22 07:14] LABS: CHLORIDE 101 mEq/L (98-107); HEMATOCRIT. 33.4 % (42.0-52.0); HEMOGLOBIN. 11.1 g/dL (14.0-18.0); MEAN CORPUSCULAR HEMOGLOBIN 28.4 pg (28.0-32.0); MEAN CORPUSCULAR VOLUME 85.7 fL (80.0-94.0); MEAN PLATELET VOLUME 9.1 fl (7.4-10.4); PLATELET 199 x1000/uL (130-400); RED CELL DISTRIBUTION WIDTH 16.5 % (11.6-14.6)
[2021-02-22 08:00] VITALS: BP 126/53
[2021-02-22] MEDS: EZETIMIBE 10MG TABLET PO SCH (10:35)
[2021-02-22] MEDS: DOCUSATE SODIUM 250MG CAPSULE PO SCH (10:35)
[2021-02-22] MEDS: ENOXAPARIN 80MG/0.8ML SYR SUBCUT SCH ×2 (10:35→21:26)
[2021-02-22] MEDS: FUROSEMIDE 40MG/4ML VIAL IVP SCH (10:36)
[2021-02-22] MEDS: CARVEDILOL 12.5MG TABLET PO SCH ×2 (10:36→21:25)
[2021-02-22 12:00] VITALS: BP 107/64
[2021-02-22 12:59] LABS: PLATELET ESTIMATE NORMAL
[2021-02-22 16:00] VITALS: BP_SYST 128; BP_SYST 151; BP_DIAS 51; BP_DIAS 74
[2021-02-22] MEDS: LACTULOSE 20G/30ML UDC PO PRN (18:27)
[2021-02-22 20:00] VITALS: BP 126/61
[2021-02-23] VITALS: BP 128/51
[2021-02-23] MEDS: METHYLPREDNISOLONE SOD SUCC 40 MG/ML VIAL IV SCH ×2 (01:26→13:36)
[2021-02-23] MEDS: BENZONATATE 100MG CAPSULE PO PRN (01:28)
[2021-02-23 04:00] VITALS: BP 118/58
[2021-02-23] MEDS: PIPERACILLIN/TAZOBACTAM 3.375 G in DEXTROSE 5% WATER 50 ML IV SCH ×3 (05:38→21:03)
[2021-02-23] MEDS: GABAPENTIN 100MG CAPSULE PO SCH ×3 (05:38→21:02)
[2021-02-23] MEDS: BLOOD SUGAR DIAGNOSTIC STRIP TEST SCH ×4 (05:53→21:00)
[2021-02-23] MEDS: INSULIN LISPRO 100 UNITS/ML SUBCUT SCH ×4 (05:53→21:00)
[2021-02-23] MEDS: GUAIFENESIN-DM 200MG-20MG/10ML UDC PO PRN (05:54)
[2021-02-23 06:15] LABS: MEAN CORPUSCULAR VOLUME 86.3 fL (80.0-94.0); MEAN PLATELET VOLUME 9.2 fl (7.4-10.4); PLATELET 193 x1000/uL (130-400); RED BLOOD CELL COUNT 3.94 mill/uL (4.7-6.1); RED CELL DISTRIBUTION WIDTH 16.6 % (11.6-14.6)
[2021-02-23 06:29] LABS: CHLORIDE 101 mEq/L (98-107)
[2021-02-23 08:00] VITALS: BP 125/56
[2021-02-23] MEDS: FUROSEMIDE 40MG/4ML VIAL IVP SCH (09:08)
[2021-02-23] MEDS: ENOXAPARIN 80MG/0.8ML SYR SUBCUT SCH ×2 (09:08→21:03)
[2021-02-23] MEDS: DOCUSATE SODIUM 250MG CAPSULE PO SCH (09:09)
[2021-02-23] MEDS: EZETIMIBE 10MG TABLET PO SCH (09:09)
[2021-02-23] MEDS: CARVEDILOL 12.5MG TABLET PO SCH ×2 (09:09→21:02)
[2021-02-23] MEDS: IPRATROPIUM/ALBUTEROL 0.5-3(2.5)MG/3ML NEB HHN SCH ×3 (10:34→21:41)
[2021-02-23 11:53] LABS: PLATELET ESTIMATE NORMAL
[2021-02-23 12:00] VITALS: BP 114/52
[2021-02-23] MEDS ORDERED: MAGNESIUM CITRATE 300ML SOLUTION PO NR (14:00)
[2021-02-23 16:00] VITALS: BP 121/66
[2021-02-23] MEDS: METOCLOPRAMIDE HCL 10MG/2ML VIAL IV SCH (18:17)
[2021-02-23 20:00] VITALS: BP 129/53
[2021-02-24] VITALS: BP 102/41
[2021-02-24] MEDS: METHYLPREDNISOLONE SOD SUCC 40 MG/ML VIAL IV SCH ×2 (00:11→13:20)
[2021-02-24] MEDS: METOCLOPRAMIDE HCL 10MG/2ML VIAL IV SCH ×4 (00:11→17:41)
[2021-02-24] MEDS: BENZONATATE 100MG CAPSULE PO PRN ×2 (00:13→12:14)
[2021-02-24] MEDS ORDERED: NALOXONE HCL 0.4MG/ML VIAL IV PRN (00:15)
[2021-02-24] MEDS: IPRATROPIUM/ALBUTEROL 0.5-3(2.5)MG/3ML NEB HHN SCH ×4 (01:34→21:45)
[2021-02-24 04:00] VITALS: BP 119/59
[2021-02-24] MEDS: GABAPENTIN 100MG CAPSULE PO SCH ×3 (05:35→21:11)
[2021-02-24] MEDS: PIPERACILLIN/TAZOBACTAM 3.375 G in DEXTROSE 5% WATER 50 ML IV SCH ×3 (05:35→21:09)
[2021-02-24 06:18] LABS: HEMOGLOBIN. 11.3 g/dL (14.0-18.0); MEAN CORPUSCULAR HEMOGLOBIN 28.3 pg (28.0-32.0); MEAN CORPUSCULAR VOLUME 85.1 fL (80.0-94.0); MEAN PLATELET VOLUME 8.9 fl (7.4-10.4); PLATELET 192 x1000/uL (130-400); RED CELL DISTRIBUTION WIDTH 15.9 % (11.6-14.6)
[2021-02-24] MEDS: INSULIN LISPRO 100 UNITS/ML SUBCUT SCH ×4 (06:37→21:00)
[2021-02-24] MEDS: BLOOD SUGAR DIAGNOSTIC STRIP TEST SCH ×4 (06:37→21:58)
[2021-02-24 06:52] LABS: CHLORIDE 100 mEq/L (98-107)
[2021-02-24 08:00] VITALS: BP 125/43
[2021-02-24] MEDS: FUROSEMIDE 40MG/4ML VIAL IVP SCH (09:10)
[2021-02-24] MEDS: DOCUSATE SODIUM 250MG CAPSULE PO SCH (09:10)
[2021-02-24] MEDS: CARVEDILOL 12.5MG TABLET PO SCH ×2 (09:10→21:10)
[2021-02-24] MEDS: EZETIMIBE 10MG TABLET PO SCH (09:10)
[2021-02-24] MEDS: ENOXAPARIN 80MG/0.8ML SYR SUBCUT SCH (09:10)
[2021-02-24 12:00] VITALS: BP 133/56
[2021-02-24 14:09] LABS: PLATELET ESTIMATE NORMAL
[2021-02-24 16:00] VITALS: BP 105/52
[2021-02-24 20:00] VITALS: BP 144/52
[2021-02-25] VITALS (62 sets, daily range): BP systolic 102–222; BP diastolic 25–135
[2021-02-25] MEDS: METOCLOPRAMIDE HCL 10MG/2ML VIAL IV SCH ×5 (00:12→23:21)
[2021-02-25] MEDS: IPRATROPIUM/ALBUTEROL 0.5-3(2.5)MG/3ML NEB HHN SCH ×4 (01:40→20:45)
[2021-02-25] MEDS: PIPERACILLIN/TAZOBACTAM 3.375 G in DEXTROSE 5% WATER 50 ML IV SCH ×3 (05:55→21:11)
[2021-02-25] MEDS: GABAPENTIN 100MG CAPSULE PO SCH ×3 (05:55→21:10)
[2021-02-25] MEDS: BLOOD SUGAR DIAGNOSTIC STRIP TEST SCH ×4 (05:56→21:02)
[2021-02-25] MEDS: BENZONATATE 100MG CAPSULE PO PRN (06:00)
[2021-02-25] MEDS: INSULIN LISPRO 100 UNITS/ML SUBCUT SCH ×4 (06:26→21:11)
[2021-02-25] MEDS ORDERED: TALC 3 GM VIAL IX SCH (07:00)
[2021-02-25] MEDS ORDERED: TETRACAINE/BENZOCAINE/BUTAMBEN 20 GM SPRAY MM ONE (07:06)
[2021-02-25] MEDS ORDERED: POLYMYXIN B SULFATE 500000 UNITS/VIAL ONE (07:06)
[2021-02-25] MEDS ORDERED: SKIN ADHESIVE 0.7 GM EA TOP ONE (07:06)
[2021-02-25] MEDS ORDERED: BUPIVACAINE HCL 0.5% (5MG/ML) 50ML ONE (07:07)
[2021-02-25] MEDS ORDERED: FENTANYL CITRATE/PF 50MCG/ML 2ML VIAL ONE (07:32)
[2021-02-25] MEDS ORDERED: ROCURONIUM BROMIDE 10MG/ML VIAL 5ML IV ONE (07:33)
[2021-02-25] MEDS ORDERED: GLYCOPYRROLATE 0.2 MG/ML 2ML VIAL ONE (07:33)
[2021-02-25] MEDS ORDERED: MIDAZOLAM HCL 2 MG/2 ML VIAL ONE (07:33)
[2021-02-25] MEDS ORDERED: PROPOFOL 200MG/20ML VIAL IV ONE (07:33)
[2021-02-25] MEDS ORDERED: NEOSTIGMINE METHYLSULFATE 1MG/ML 10 ML VIAL ONE (07:33)
[2021-02-25 07:35] LABS: HEMATOCRIT. 35.6 % (42.0-52.0); HEMOGLOBIN. 11.9 g/dL (14.0-18.0); MEAN CORPUSCULAR HEMOGLOBIN 28.7 pg (28.0-32.0); MEAN CORPUSCULAR VOLUME 85.5 fL (80.0-94.0); MEAN PLATELET VOLUME 8.8 fl (7.4-10.4); PLATELET 210 x1000/uL (130-400); RED BLOOD CELL COUNT 4.16 mill/uL (4.7-6.1); RED CELL DISTRIBUTION WIDTH 16.6 % (11.6-14.6)
[2021-02-25] MEDS ORDERED: DEXAMETHASONE 4MG/ML 1ML VIAL ONE (07:37)
[2021-02-25] MEDS ORDERED: ONDANSETRON HCL 4MG/2ML INJ ONE (07:37)
[2021-02-25 07:45] LABS: CHLORIDE 102 mEq/L (98-107)
[2021-02-25] MEDS ORDERED: HYDROMORPHONE HCL/PF 2MG/ML (OR) ONE (08:37)
[2021-02-25] MEDS: CARVEDILOL 12.5MG TABLET PO SCH ×2 (09:00→21:10)
[2021-02-25] MEDS: EZETIMIBE 10MG TABLET PO SCH (09:00)
[2021-02-25] MEDS ORDERED: ACETAMINOPHEN 325MG TABLET PO PRN (09:30)
[2021-02-25] MEDS ORDERED: OXYCODONE HCL/ACETAMINOPHEN 5/325MG TABLET PO PRN (09:30)
[2021-02-25] MEDS ORDERED: SODIUM CHLORIDE 0.9% 500 ML IV PRN (09:30)
[2021-02-25] MEDS ORDERED: ONDANSETRON HCL 4MG/2ML INJ IV PRN (09:30)
[2021-02-25 09:52] LABS: BG BASE EXCESS 2.4 mmol/L (-2.0-2.0); BG CARBOXYHEMOGLOBIN 0.3 % (0.5-1.5); BG DEOXYHEMOGLOBIN 0.8 % (0.0-5.0); BG FRACTION INSPIRED OXYGEN 100; BG HCO3 ACT 27.2 mmol/L (22.0-26.0); BG METHEMOGLOBIN 0.6 % (0.0-1.5); BG OXYGEN SATURATION 99.2 % (92.0-98.5); BG OXYHEMOGLOBIN 98.3 % (94.0-97.0); BG PCO2 42.9 mmHg (35.0-45.0); BG PO2 424.4 mmHg (75.0-100.0); BG SAMPLE SITE ALINE; BG TOTAL HEMOGLOBIN 10.9 g/dL (12.0-18.0); BG VENT MODE VENT - AC
[2021-02-25] MEDS: MAGNESIUM HYDROXIDE 400MG/5ML 30ML UDC PO SCH ×4 (10:00→21:13)
[2021-02-25] MEDS ORDERED: HYDRALAZINE 20MG/ML VIAL IV NR (10:30)
[2021-02-25] MEDS: FUROSEMIDE 40MG/4ML VIAL IVP SCH (11:31)
[2021-02-25] MEDS: METHYLPREDNISOLONE SOD SUCC 40 MG/ML VIAL IV SCH (11:31)
[2021-02-25] MEDS: CEFAZOLIN 1000MG PREMIX 50 ML IV SCH ×2 (11:31→18:16)
[2021-02-25] MEDS: DEXT 5%/0.45% NACL 1000ML 1,000 ML IV SCH (11:32)
[2021-02-25 11:56] LABS: BG BASE EXCESS 2.9 mmol/L (-2.0-2.0); BG CARBOXYHEMOGLOBIN 0.5 % (0.5-1.5); BG DEOXYHEMOGLOBIN 3.3 % (0.0-5.0); BG HCO3 ACT 29.8 mmol/L (22.0-26.0); BG METHEMOGLOBIN 0.2 % (0.0-1.5); BG OXYGEN SATURATION 96.7 % (92.0-98.5); BG PCO2 55.4 mmHg (35.0-45.0); BG PH 7.348 (7.350-7.450); BG PO2 97.3 mmHg (75.0-100.0); BG SAMPLE SITE ALINE; BG TOTAL HEMOGLOBIN 13.1 g/dL (12.0-18.0); BG VENT MODE VENT - CPAP
[2021-02-25] MEDS: MORPHINE SULFATE 2 MG/ML CPJ (NOT FOR IM USE) IV PRN (12:38)
[2021-02-25 13:29] LABS: BG BASE EXCESS -2.3 mmol/L (-2.0-2.0); BG CARBOXYHEMOGLOBIN 0.3 % (0.5-1.5); BG DEOXYHEMOGLOBIN 0.7 % (0.0-5.0); BG METHEMOGLOBIN 0.1 % (0.0-1.5); BG OXYGEN SATURATION 99.3 % (92.0-98.5); BG OXYHEMOGLOBIN 98.9 % (94.0-97.0); BG PCO2 41.5 mmHg (35.0-45.0); BG PH 7.361 (7.350-7.450); BG PO2 205.9 mmHg (75.0-100.0); BG SAMPLE SITE ALINE; BG TOTAL HEMOGLOBIN 13.5 g/dL (12.0-18.0); BG VENT MODE MASK - BIPAP
[2021-02-25 13:48] LABS: HEMATOCRIT. 38.9 % (42.0-52.0); HEMOGLOBIN. 12.7 g/dL (14.0-18.0); MEAN CORPUSCULAR HEMOGLOBIN 28.3 pg (28.0-32.0); MEAN CORPUSCULAR VOLUME 86.3 fL (80.0-94.0); MEAN PLATELET VOLUME 8.8 fl (7.4-10.4); PLATELET 265 x1000/uL (130-400); RED BLOOD CELL COUNT 4.51 mill/uL (4.7-6.1); RED CELL DISTRIBUTION WIDTH 16.3 % (11.6-14.6)
[2021-02-25 13:50] LABS: CHLORIDE 103 mEq/L (98-107)
[2021-02-25] MEDS: NITROGLYCERIN OINT 1GM/INCH UDPKT TD SCH ×2 (14:20→21:11)
[2021-02-25] MEDS ORDERED: MORPHINE SULFATE 2 MG/ML CPJ (NOT FOR IM USE) IV NR (14:30)
[2021-02-25 15:01] LABS: PLATELET ESTIMATE NORMAL
[2021-02-25 17:44] LABS: PLATELET ESTIMATE NORMAL
[2021-02-25] MEDS ORDERED: HYDROMORPHONE HCL/PF 2MG/ML CPJ IV PRN (17:45)
[2021-02-25] MEDS: DOCUSATE SODIUM 100MG CAPSULE PO SCH (18:12)
[2021-02-25] MEDS: FAMOTIDINE 20MG/2ML VIAL IV SCH (21:10)
[2021-02-26] VITALS (54 sets, daily range): BP systolic 69–171; BP diastolic 22–89
[2021-02-26] MEDS: IPRATROPIUM/ALBUTEROL 0.5-3(2.5)MG/3ML NEB HHN SCH ×6 (01:10→20:41)
[2021-02-26] MEDS: CEFAZOLIN 1000MG PREMIX 50 ML IV SCH (02:27)
[2021-02-26] MEDS: MAGNESIUM HYDROXIDE 400MG/5ML 30ML UDC PO SCH ×3 (02:28→09:24)
[2021-02-26] MEDS: MORPHINE SULFATE 2 MG/ML CPJ (NOT FOR IM USE) IV PRN ×2 (03:19→10:09)
[2021-02-26 05:34] LABS: CHLORIDE 102 mEq/L (98-107)
[2021-02-26 05:35] LABS: HEMATOCRIT. 37.4 % (42.0-52.0); MEAN CORPUSCULAR HEMOGLOBIN 27.6 pg (28.0-32.0); MEAN CORPUSCULAR VOLUME 86.1 fL (80.0-94.0); MEAN PLATELET VOLUME 8.8 fl (7.4-10.4); PLATELET 199 x1000/uL (130-400); RED BLOOD CELL COUNT 4.34 mill/uL (4.7-6.1); RED CELL DISTRIBUTION WIDTH 16.4 % (11.6-14.6)
[2021-02-26] MEDS: DEXT 5%/0.45% NACL 1000ML 1,000 ML IV SCH ×2 (06:00→17:42)
[2021-02-26] MEDS: PIPERACILLIN/TAZOBACTAM 3.375 G in DEXTROSE 5% WATER 50 ML IV SCH ×2 (06:26→14:18)
[2021-02-26] MEDS: NITROGLYCERIN OINT 1GM/INCH UDPKT TD SCH ×3 (06:26→21:59)
[2021-02-26] MEDS: METOCLOPRAMIDE HCL 10MG/2ML VIAL IV SCH ×3 (06:26→17:42)
[2021-02-26] MEDS: GABAPENTIN 100MG CAPSULE PO SCH ×3 (06:27→21:59)
[2021-02-26] MEDS: BLOOD SUGAR DIAGNOSTIC STRIP TEST SCH ×4 (07:50→21:00)
[2021-02-26 07:55] LABS: BG CARBOXYHEMOGLOBIN 0.5 % (0.5-1.5); BG DEOXYHEMOGLOBIN 10.7 % (0.0-5.0); BG FRACTION INSPIRED OXYGEN 32; BG HCO3 ACT 33.6 mmol/L (22.0-26.0); BG METHEMOGLOBIN 0.4 % (0.0-1.5); BG OXYGEN SATURATION 89.2 % (92.0-98.5); BG OXYHEMOGLOBIN 88.4 % (94.0-97.0); BG PCO2 51.7 mmHg (35.0-45.0); BG PH 7.431 (7.350-7.450); BG PO2 52.6 mmHg (75.0-100.0); BG SAMPLE SITE ALINE; BG TOTAL HEMOGLOBIN 11.8 g/dL (12.0-18.0); BG VENT MODE NASAL CANNULA
[2021-02-26] MEDS: INSULIN LISPRO 100 UNITS/ML SUBCUT SCH ×4 (08:20→21:00)
[2021-02-26] MEDS: CARVEDILOL 12.5MG TABLET PO SCH ×2 (09:00→21:59)
[2021-02-26] MEDS ORDERED: FAMOTIDINE 20MG/2ML VIAL IV SCH (09:00)
[2021-02-26] MEDS: METHYLPREDNISOLONE SOD SUCC 40 MG/ML VIAL IV SCH (09:24)
[2021-02-26] MEDS: FAMOTIDINE 20MG/2ML VIAL IV SCH ×2 (09:24→21:49)
[2021-02-26] MEDS: FUROSEMIDE 40MG/4ML VIAL IVP SCH (09:24)
[2021-02-26] MEDS: DOCUSATE SODIUM 100MG CAPSULE PO SCH ×2 (09:24→17:42)
[2021-02-26] MEDS: EZETIMIBE 10MG TABLET PO SCH (09:24)
[2021-02-26] MEDS: GUAIFENESIN-DM 200MG-20MG/10ML UDC PO PRN (10:08)
[2021-02-26 10:20] LABS: PLATELET ESTIMATE NORMAL
[2021-02-26] MEDS ORDERED: POTASSIUM CHLORIDE INJ 40 MEQ in DEXT 5% WATER 250 ML IV NR (12:30)
[2021-02-26] MEDS: BENZONATATE 100MG CAPSULE PO PRN (17:42)
[2021-02-26] MEDS: LACTULOSE 20G/30ML UDC PO PRN (22:32)
[2021-02-27] VITALS (50 sets, daily range): BP systolic 97–148; BP diastolic 47–102
[2021-02-27] MEDS: IPRATROPIUM/ALBUTEROL 0.5-3(2.5)MG/3ML NEB HHN SCH ×6 (00:30→20:40)
[2021-02-27] MEDS: METOCLOPRAMIDE HCL 10MG/2ML VIAL IV SCH ×5 (00:51→17:53)
[2021-02-27] MEDS: GABAPENTIN 100MG CAPSULE PO SCH ×3 (05:36→21:17)
[2021-02-27] MEDS: NITROGLYCERIN OINT 1GM/INCH UDPKT TD SCH ×3 (05:36→21:23)
[2021-02-27 06:01] LABS: HEMATOCRIT. 31.4 % (42.0-52.0); HEMOGLOBIN. 10.4 g/dL (14.0-18.0); MEAN CORPUSCULAR HEMOGLOBIN 28.2 pg (28.0-32.0); MEAN PLATELET VOLUME 9.4 fl (7.4-10.4); PLATELET 168 x1000/uL (130-400); RED CELL DISTRIBUTION WIDTH 16.1 % (11.6-14.6)
[2021-02-27 06:03] LABS: CHLORIDE 99 mEq/L (98-107)
[2021-02-27] MEDS: METHYLPREDNISOLONE SOD SUCC 40 MG/ML VIAL IV SCH (08:20)
[2021-02-27] MEDS: FUROSEMIDE 40MG/4ML VIAL IVP SCH (08:20)
[2021-02-27] MEDS: INSULIN LISPRO 100 UNITS/ML SUBCUT SCH ×4 (08:20→21:23)
[2021-02-27] MEDS: CARVEDILOL 12.5MG TABLET PO SCH ×2 (08:21→21:00)
[2021-02-27] MEDS: FAMOTIDINE 20MG/2ML VIAL IV SCH ×2 (08:21→21:23)
[2021-02-27] MEDS: EZETIMIBE 10MG TABLET PO SCH (08:21)
[2021-02-27] MEDS: BLOOD SUGAR DIAGNOSTIC STRIP TEST SCH ×4 (08:22→21:23)
[2021-02-27] MEDS: DOCUSATE SODIUM 100MG CAPSULE PO SCH ×2 (08:30→17:00)
[2021-02-27 09:30] LABS: PLATELET ESTIMATE NORMAL
[2021-02-27] MEDS: GUAIFENESIN-DM 200MG-20MG/10ML UDC PO PRN (14:38)
[2021-02-27] MEDS: MORPHINE SULFATE 2 MG/ML CPJ (NOT FOR IM USE) IV PRN (15:21)
[2021-02-27] MEDS: DEXT 5%/0.45% NACL 1000ML 1,000 ML IV SCH (21:23)
[2021-02-27] MEDS: BENZONATATE 100MG CAPSULE PO PRN (21:32)
[2021-02-28] VITALS (90 sets, daily range): BP systolic 78–160; BP diastolic 27–114
[2021-02-28] MEDS: IPRATROPIUM/ALBUTEROL 0.5-3(2.5)MG/3ML NEB HHN SCH ×6 (00:39→21:39)
[2021-02-28] MEDS: MORPHINE SULFATE 2 MG/ML CPJ (NOT FOR IM USE) IV PRN ×3 (04:03→17:21)
[2021-02-28 05:47] LABS: CHLORIDE 98 mEq/L (98-107); HEMOGLOBIN. 10.4 g/dL (14.0-18.0); MEAN CORPUSCULAR HEMOGLOBIN 28.3 pg (28.0-32.0); MEAN CORPUSCULAR VOLUME 84.7 fL (80.0-94.0); MEAN PLATELET VOLUME 9.2 fl (7.4-10.4); PLATELET 178 x1000/uL (130-400); RED BLOOD CELL COUNT 3.66 mill/uL (4.7-6.1); RED CELL DISTRIBUTION WIDTH 16.2 % (11.6-14.6)
[2021-02-28] MEDS: METOCLOPRAMIDE HCL 10MG/2ML VIAL IV SCH ×4 (06:00→17:21)
[2021-02-28] MEDS: GABAPENTIN 100MG CAPSULE PO SCH ×3 (06:15→21:31)
[2021-02-28] MEDS: NITROGLYCERIN OINT 1GM/INCH UDPKT TD SCH ×3 (06:15→21:34)
[2021-02-28] MEDS: BLOOD SUGAR DIAGNOSTIC STRIP TEST SCH ×4 (07:50→21:00)
[2021-02-28] MEDS: DOCUSATE SODIUM 100MG CAPSULE PO SCH ×2 (08:57→16:30)
[2021-02-28] MEDS: EZETIMIBE 10MG TABLET PO SCH (09:21)
[2021-02-28] MEDS: METHYLPREDNISOLONE SOD SUCC 40 MG/ML VIAL IV SCH (09:21)
[2021-02-28] MEDS: CARVEDILOL 12.5MG TABLET PO SCH ×2 (09:21→21:00)
[2021-02-28] MEDS: FUROSEMIDE 40MG/4ML VIAL IVP SCH (09:21)
[2021-02-28] MEDS: FAMOTIDINE 20MG/2ML VIAL IV SCH ×2 (09:21→21:31)
[2021-02-28] MEDS: INSULIN LISPRO 100 UNITS/ML SUBCUT SCH ×4 (09:22→21:34)
[2021-02-28] MEDS: BENZONATATE 100MG CAPSULE PO PRN ×2 (12:15→21:31)
[2021-02-28 12:52] LABS: PLATELET ESTIMATE NORMAL
[2021-02-28] MEDS: DEXT 5%/0.45% NACL 1000ML 1,000 ML IV SCH (17:22)
[2021-03-01] VITALS (41 sets, daily range): BP systolic 49–162; BP diastolic 33–99
[2021-03-01] MEDS: IPRATROPIUM/ALBUTEROL 0.5-3(2.5)MG/3ML NEB HHN SCH ×6 (00:15→21:07)
[2021-03-01] MEDS: METOCLOPRAMIDE HCL 10MG/2ML VIAL IV SCH ×5 (00:18→23:33)
[2021-03-01] MEDS: MORPHINE SULFATE 2 MG/ML CPJ (NOT FOR IM USE) IV PRN ×2 (00:31→06:17)
[2021-03-01 05:26] LABS: HEMOGLOBIN. 10.1 g/dL (14.0-18.0); MEAN CORPUSCULAR HEMOGLOBIN 28.9 pg (28.0-32.0); MEAN CORPUSCULAR VOLUME 83.4 fL (80.0-94.0); MEAN PLATELET VOLUME 8.7 fl (7.4-10.4); PLATELET 177 x1000/uL (130-400); RED BLOOD CELL COUNT 3.48 mill/uL (4.7-6.1); RED CELL DISTRIBUTION WIDTH 15.8 % (11.6-14.6)
[2021-03-01] MEDS: NITROGLYCERIN OINT 1GM/INCH UDPKT TD SCH ×3 (05:30→21:38)
[2021-03-01] MEDS: GABAPENTIN 100MG CAPSULE PO SCH ×3 (05:30→21:36)
[2021-03-01] MEDS: BENZONATATE 100MG CAPSULE PO PRN ×3 (05:31→18:14)
[2021-03-01 05:39] LABS: CHLORIDE 98 mEq/L (98-107)
[2021-03-01] MEDS: BLOOD SUGAR DIAGNOSTIC STRIP TEST SCH ×4 (08:12→21:37)
[2021-03-01] MEDS: FAMOTIDINE 20MG/2ML VIAL IV SCH ×2 (08:16→21:36)
[2021-03-01] MEDS: FUROSEMIDE 40MG/4ML VIAL IVP SCH (08:16)
[2021-03-01] MEDS: METHYLPREDNISOLONE SOD SUCC 40 MG/ML VIAL IV SCH (08:16)
[2021-03-01] MEDS: CARVEDILOL 12.5MG TABLET PO SCH ×2 (08:17→21:37)
[2021-03-01] MEDS: EZETIMIBE 10MG TABLET PO SCH (08:17)
[2021-03-01] MEDS: DOCUSATE SODIUM 100MG CAPSULE PO SCH ×2 (08:17→18:15)
[2021-03-01] MEDS: INSULIN LISPRO 100 UNITS/ML SUBCUT SCH ×3 (08:18→21:00)
[2021-03-01 08:45] LABS: PLATELET ESTIMATE NORMAL
[2021-03-01] MEDS: GUAIFENESIN-DM 200MG-20MG/10ML UDC PO PRN ×2 (11:21→18:14)
[2021-03-01] MEDS ORDERED: NALOXONE HCL 0.4MG/ML VIAL IV PRN (17:00)
[2021-03-02] VITALS (12 sets, daily range): BP systolic 116–143; BP diastolic 53–90
[2021-03-02] MEDS: IPRATROPIUM/ALBUTEROL 0.5-3(2.5)MG/3ML NEB HHN SCH ×6 (00:27→21:16)
[2021-03-02] MEDS: MORPHINE SULFATE 2 MG/ML CPJ (NOT FOR IM USE) IV PRN ×2 (01:24→09:16)
[2021-03-02] MEDS: BLOOD SUGAR DIAGNOSTIC STRIP TEST SCH ×4 (06:05→20:37)
[2021-03-02] MEDS: METOCLOPRAMIDE HCL 10MG/2ML VIAL IV SCH ×3 (06:05→17:39)
[2021-03-02] MEDS: GABAPENTIN 100MG CAPSULE PO SCH ×3 (06:05→21:41)
[2021-03-02] MEDS: NITROGLYCERIN OINT 1GM/INCH UDPKT TD SCH ×3 (06:13→21:41)
[2021-03-02] MEDS: INSULIN LISPRO 100 UNITS/ML SUBCUT SCH ×4 (07:20→20:34)
[2021-03-02] MEDS: FUROSEMIDE 40MG/4ML VIAL IVP SCH (08:35)
[2021-03-02] MEDS: DOCUSATE SODIUM 100MG CAPSULE PO SCH ×2 (08:35→17:39)
[2021-03-02] MEDS: EZETIMIBE 10MG TABLET PO SCH (08:35)
[2021-03-02] MEDS: CARVEDILOL 12.5MG TABLET PO SCH ×2 (08:35→20:37)
[2021-03-02] MEDS: METHYLPREDNISOLONE SOD SUCC 40 MG/ML VIAL IV SCH (08:35)
[2021-03-02] MEDS: FAMOTIDINE 20MG/2ML VIAL IV SCH (08:35)
[2021-03-02] MEDS: GUAIFENESIN-DM 200MG-20MG/10ML UDC PO PRN ×2 (09:14→20:34)
[2021-03-02 10:21] LABS: HEMOGLOBIN 10.5 g/dL (14.0-18.0); MEAN CORPUSCULAR HEMOGLOBIN 27.9 pg (28.0-32.0); MEAN CORPUSCULAR VOLUME 85.3 fL (80.0-94.0); PLATELET 188 x1000/uL (130-400); RED BLOOD CELL COUNT 3.75 mill/uL (4.7-6.1); RED CELL DISTRIBUTION WIDTH 15.6 % (11.6-14.6)
[2021-03-02 10:29] LABS: CHLORIDE 97 mEq/L (98-107)
[2021-03-02] MEDS ORDERED: MAGNESIUM CITRATE 300ML SOLUTION PO NR (13:00)
[2021-03-02] MEDS: FAMOTIDINE 20MG TABLET PO SCH (20:34)
[2021-03-03] VITALS (13 sets, daily range): BP systolic 97–144; BP diastolic 42–98
[2021-03-03] MEDS: METOCLOPRAMIDE HCL 10MG/2ML VIAL IV SCH ×3 (01:09→12:40)
[2021-03-03] MEDS: IPRATROPIUM/ALBUTEROL 0.5-3(2.5)MG/3ML NEB HHN SCH ×6 (01:50→21:15)
[2021-03-03] MEDS: GABAPENTIN 100MG CAPSULE PO SCH ×3 (06:14→22:25)
[2021-03-03] MEDS: BLOOD SUGAR DIAGNOSTIC STRIP TEST SCH ×4 (06:15→22:16)
[2021-03-03] MEDS: NITROGLYCERIN OINT 1GM/INCH UDPKT TD SCH ×2 (06:15→14:00)
[2021-03-03 06:30] LABS: CHLORIDE 98 mEq/L (98-107)
[2021-03-03 06:34] LABS: HEMATOCRIT. 31.9 % (42.0-52.0); HEMOGLOBIN. 10.6 g/dL (14.0-18.0); MEAN CORPUSCULAR HEMOGLOBIN 28.3 pg (28.0-32.0); MEAN CORPUSCULAR VOLUME 85.3 fL (80.0-94.0); MEAN PLATELET VOLUME 9.2 fl (7.4-10.4); PLATELET 198 x1000/uL (130-400); RED BLOOD CELL COUNT 3.74 mill/uL (4.7-6.1); RED CELL DISTRIBUTION WIDTH 15.9 % (11.6-14.6)
[2021-03-03] MEDS: GUAIFENESIN-DM 200MG-20MG/10ML UDC PO PRN (07:52)
[2021-03-03] MEDS: INSULIN LISPRO 100 UNITS/ML SUBCUT SCH ×4 (07:52→21:00)
[2021-03-03] MEDS: EZETIMIBE 10MG TABLET PO SCH (09:15)
[2021-03-03] MEDS: DOCUSATE SODIUM 100MG CAPSULE PO SCH ×2 (09:15→17:00)
[2021-03-03] MEDS: FAMOTIDINE 20MG TABLET PO SCH ×2 (09:15→22:25)
[2021-03-03] MEDS: FUROSEMIDE 40MG/4ML VIAL IVP SCH (09:15)
[2021-03-03] MEDS: ENOXAPARIN 80MG/0.8ML SYR SUBCUT SCH ×2 (09:16→22:26)
[2021-03-03] MEDS: CARVEDILOL 12.5MG TABLET PO SCH ×2 (09:16→22:25)
[2021-03-03] MEDS: ACETAMINOPHEN 325MG TABLET PO PRN ×2 (11:51→19:47)
[2021-03-03 12:31] LABS: PLATELET ESTIMATE NORMAL
[2021-03-03] MEDS: BENZONATATE 100MG CAPSULE PO PRN (19:46)
[2021-03-04] VITALS (11 sets, daily range): BP systolic 110–131; BP diastolic 53–63
[2021-03-04] MEDS: IPRATROPIUM/ALBUTEROL 0.5-3(2.5)MG/3ML NEB HHN SCH ×6 (01:02→20:08)
[2021-03-04] MEDS: GABAPENTIN 100MG CAPSULE PO SCH ×3 (05:17→22:19)
[2021-03-04] MEDS: BENZONATATE 100MG CAPSULE PO PRN ×3 (05:17→22:38)
[2021-03-04] MEDS: ACETAMINOPHEN 325MG TABLET PO PRN ×3 (05:17→22:19)
[2021-03-04] MEDS: BLOOD SUGAR DIAGNOSTIC STRIP TEST SCH ×4 (06:59→20:35)
[2021-03-04] MEDS: INSULIN LISPRO 100 UNITS/ML SUBCUT SCH ×4 (07:20→20:35)
[2021-03-04 07:54] LABS: HEMATOCRIT. 31.8 % (42.0-52.0); HEMOGLOBIN. 10.4 g/dL (14.0-18.0); MEAN CORPUSCULAR HEMOGLOBIN 27.9 pg (28.0-32.0); PLATELET 201 x1000/uL (130-400); RED BLOOD CELL COUNT 3.74 mill/uL (4.7-6.1); RED CELL DISTRIBUTION WIDTH 15.7 % (11.6-14.6)
[2021-03-04 08:05] LABS: CHLORIDE 99 mEq/L (98-107)
[2021-03-04] MEDS: FUROSEMIDE 40MG/4ML VIAL IVP SCH (08:46)
[2021-03-04] MEDS: EZETIMIBE 10MG TABLET PO SCH (08:47)
[2021-03-04] MEDS: ENOXAPARIN 80MG/0.8ML SYR SUBCUT SCH ×2 (08:47→20:58)
[2021-03-04] MEDS: FAMOTIDINE 20MG TABLET PO SCH ×2 (08:47→20:58)
[2021-03-04] MEDS: CARVEDILOL 12.5MG TABLET PO SCH ×2 (08:47→21:00)
[2021-03-04] MEDS: DOCUSATE SODIUM 100MG CAPSULE PO SCH ×2 (08:48→17:00)
[2021-03-04] MEDS ORDERED: TALC 3 GM VIAL IX NR (09:00)
[2021-03-04 10:48] LABS: PLATELET ESTIMATE NORMAL
[2021-03-04] MEDS ORDERED: LEVOFLOXACIN 500MG PREMIX 100 ML IV SCH (11:30)
[2021-03-04] MEDS: LEVOFLOXACIN 750MG PREMIX 150 ML IV SCH (12:59)
[2021-03-04 15:41] LABS: BG BASE EXCESS 12.4 mmol/L (-2.0-2.0); BG CARBOXYHEMOGLOBIN 0.2 % (0.5-1.5); BG DEOXYHEMOGLOBIN 5.3 % (0.0-5.0); BG FRACTION INSPIRED OXYGEN 21; BG METHEMOGLOBIN 0.4 % (0.0-1.5); BG OXYGEN SATURATION 94.7 % (92.0-98.5); BG OXYHEMOGLOBIN 94.1 % (94.0-97.0); BG PCO2 47.7 mmHg (35.0-45.0); BG PH 7.508 (7.350-7.450); BG PO2 69.7 mmHg (75.0-100.0); BG SAMPLE SITE RIGHT RADIAL; BG TOTAL HEMOGLOBIN 11.9 g/dL (12.0-18.0); BG VENT MODE ROOM AIR
[2021-03-04] MEDS: GUAIFENESIN-DM 200MG-20MG/10ML UDC PO PRN (20:57)
[2021-03-05] VITALS (12 sets, daily range): BP systolic 104–136; BP diastolic 45–100
[2021-03-05] MEDS: IPRATROPIUM/ALBUTEROL 0.5-3(2.5)MG/3ML NEB HHN SCH ×4 (00:32→12:40)
[2021-03-05] MEDS: BLOOD SUGAR DIAGNOSTIC STRIP TEST SCH ×4 (06:27→21:18)
[2021-03-05] MEDS: INSULIN LISPRO 100 UNITS/ML SUBCUT SCH ×4 (06:27→21:00)
[2021-03-05] MEDS: ACETAMINOPHEN 325MG TABLET PO PRN ×2 (06:28→21:24)
[2021-03-05] MEDS: BENZONATATE 100MG CAPSULE PO PRN ×2 (06:28→16:26)
[2021-03-05] MEDS: GABAPENTIN 100MG CAPSULE PO SCH ×3 (06:28→21:24)
[2021-03-05 08:03] LABS: HEMOGLOBIN. 10.5 g/dL (14.0-18.0); MEAN CORPUSCULAR HEMOGLOBIN 28.7 pg (28.0-32.0); MEAN CORPUSCULAR VOLUME 84.9 fL (80.0-94.0); MEAN PLATELET VOLUME 8.8 fl (7.4-10.4); PLATELET 194 x1000/uL (130-400); RED BLOOD CELL COUNT 3.65 mill/uL (4.7-6.1); RED CELL DISTRIBUTION WIDTH 15.8 % (11.6-14.6)
[2021-03-05 08:04] LABS: CHLORIDE 98 mEq/L (98-107)
[2021-03-05] MEDS: DOCUSATE SODIUM 100MG CAPSULE PO SCH ×2 (09:26→16:26)
[2021-03-05] MEDS: FAMOTIDINE 20MG TABLET PO SCH ×2 (09:26→21:24)
[2021-03-05] MEDS: FUROSEMIDE 40MG/4ML VIAL IVP SCH (09:26)
[2021-03-05] MEDS: EZETIMIBE 10MG TABLET PO SCH (09:26)
[2021-03-05] MEDS: CARVEDILOL 12.5MG TABLET PO SCH ×2 (09:27→21:25)
[2021-03-05] MEDS: ENOXAPARIN 80MG/0.8ML SYR SUBCUT SCH ×2 (09:27→21:24)
[2021-03-05] MEDS ORDERED: POTASSIUM CHLORIDE INJ 40 MEQ in DEXT 5% WATER 250 ML IV SCH (09:30)
[2021-03-05] MEDS ORDERED: TALC 3 GM VIAL IX NR (10:00)
[2021-03-05] MEDS: NYSTATIN 100,000 UNITS/ML 5ML UDC SSW SCH ×2 (12:00→17:26)
[2021-03-05] MEDS ORDERED: MORPHINE SULFATE 2 MG/ML CPJ (NOT FOR IM USE) IV NR (12:15)
[2021-03-05 13:52] LABS: PLATELET ESTIMATE NORMAL
[2021-03-05] MEDS: PHENOL/SODIUM PHENOLATE 1.4% SRPAY 177ML MM PRN (14:58)
[2021-03-05] MEDS: LEVOFLOXACIN 750MG PREMIX 150 ML IV SCH (17:27)
[2021-03-05] MEDS ORDERED: GUAIFENESIN 600MG ER TABLET PO SCH (21:00)
[2021-03-05] MEDS: ALBUTEROL (0.083%) 2.5MG/3ML NEB HHN SCH (21:21)
[2021-03-05] MEDS: GUAIFENESIN/DM 600MG/30MG ER TAB 12HR PO SCH (21:24)
[2021-03-06] VITALS (13 sets, daily range): BP systolic 95–147; BP diastolic 36–92
[2021-03-06] MEDS: PHENOL/SODIUM PHENOLATE 1.4% SRPAY 177ML MM PRN ×3 (00:16→13:51)
[2021-03-06] MEDS: NYSTATIN 100,000 UNITS/ML 5ML UDC SSW SCH ×5 (00:16→23:47)
[2021-03-06] MEDS: BENZONATATE 100MG CAPSULE PO PRN ×3 (00:16→20:44)
[2021-03-06] MEDS: BLOOD SUGAR DIAGNOSTIC STRIP TEST SCH ×4 (06:22→20:27)
[2021-03-06] MEDS: GABAPENTIN 100MG CAPSULE PO SCH ×3 (06:22→22:30)
[2021-03-06] MEDS: INSULIN LISPRO 100 UNITS/ML SUBCUT SCH ×4 (06:28→20:30)
[2021-03-06] MEDS: ALBUTEROL (0.083%) 2.5MG/3ML NEB HHN SCH ×3 (08:15→23:56)
[2021-03-06 09:05] LABS: CHLORIDE 98 mEq/L (98-107)
[2021-03-06 09:11] LABS: HEMATOCRIT. 31.5 % (42.0-52.0); HEMOGLOBIN. 10.2 g/dL (14.0-18.0); MEAN CORPUSCULAR HEMOGLOBIN 28.1 pg (28.0-32.0); MEAN CORPUSCULAR VOLUME 86.4 fL (80.0-94.0); MEAN PLATELET VOLUME 8.9 fl (7.4-10.4); PLATELET 195 x1000/uL (130-400); RED BLOOD CELL COUNT 3.64 mill/uL (4.7-6.1); RED CELL DISTRIBUTION WIDTH 16.2 % (11.6-14.6)
[2021-03-06] MEDS: GUAIFENESIN/DM 600MG/30MG ER TAB 12HR PO SCH ×2 (09:36→20:37)
[2021-03-06] MEDS: EZETIMIBE 10MG TABLET PO SCH (09:36)
[2021-03-06] MEDS: DOCUSATE SODIUM 100MG CAPSULE PO SCH ×2 (09:37→17:00)
[2021-03-06] MEDS: FAMOTIDINE 20MG TABLET PO SCH ×2 (09:37→20:37)
[2021-03-06] MEDS: CARVEDILOL 12.5MG TABLET PO SCH ×2 (09:37→20:37)
[2021-03-06] MEDS: FUROSEMIDE 40MG/4ML VIAL IVP SCH (09:37)
[2021-03-06] MEDS: ENOXAPARIN 80MG/0.8ML SYR SUBCUT SCH ×2 (09:38→20:37)
[2021-03-06 10:50] LABS: PLATELET ESTIMATE NORMAL
[2021-03-06] MEDS: LEVOFLOXACIN 750MG PREMIX 150 ML IV SCH (12:21)
[2021-03-06] MEDS: HYDROMORPHONE HCL/PF 2MG/ML CPJ IV PRN ×2 (13:54→20:17)
[2021-03-06] MEDS: ACETYLCYSTEINE 100MG/ML 10% VIAL 4ML INH SCH (23:53)
[2021-03-07] VITALS (12 sets, daily range): BP systolic 112–141; BP diastolic 48–75
[2021-03-07] MEDS: ALBUTEROL (0.083%) 2.5MG/3ML NEB HHN SCH ×4 (04:34→21:10)
[2021-03-07] MEDS: BENZONATATE 100MG CAPSULE PO PRN ×2 (06:13→21:51)
[2021-03-07] MEDS: GABAPENTIN 100MG CAPSULE PO SCH ×3 (06:13→21:42)
[2021-03-07] MEDS: NYSTATIN 100,000 UNITS/ML 5ML UDC SSW SCH ×3 (06:13→17:45)
[2021-03-07] MEDS: BLOOD SUGAR DIAGNOSTIC STRIP TEST SCH ×5 (06:21→21:31)
[2021-03-07 06:54] LABS: HEMATOCRIT. 31.8 % (42.0-52.0); HEMOGLOBIN. 10.8 g/dL (14.0-18.0); MEAN CORPUSCULAR HEMOGLOBIN 29.4 pg (28.0-32.0); MEAN CORPUSCULAR VOLUME 86.7 fL (80.0-94.0); PLATELET 190 x1000/uL (130-400); RED BLOOD CELL COUNT 3.67 mill/uL (4.7-6.1)
[2021-03-07 07:02] LABS: CHLORIDE 95 mEq/L (98-107)
[2021-03-07] MEDS: INSULIN LISPRO 100 UNITS/ML SUBCUT SCH ×4 (07:20→21:00)
[2021-03-07] MEDS: CARVEDILOL 12.5MG TABLET PO SCH ×2 (09:00→21:41)
[2021-03-07] MEDS: FUROSEMIDE 40MG/4ML VIAL IVP SCH (09:05)
[2021-03-07] MEDS: GUAIFENESIN/DM 600MG/30MG ER TAB 12HR PO SCH (09:06)
[2021-03-07] MEDS: ENOXAPARIN 80MG/0.8ML SYR SUBCUT SCH ×2 (09:06→21:42)
[2021-03-07] MEDS: EZETIMIBE 10MG TABLET PO SCH (09:06)
[2021-03-07] MEDS: PHENOL/SODIUM PHENOLATE 1.4% SRPAY 177ML MM PRN (09:06)
[2021-03-07] MEDS: FAMOTIDINE 20MG TABLET PO SCH ×2 (09:06→21:41)
[2021-03-07] MEDS: DOCUSATE SODIUM 100MG CAPSULE PO SCH ×2 (09:06→17:45)
[2021-03-07] MEDS: ACETYLCYSTEINE 100MG/ML 10% VIAL 4ML INH SCH ×3 (09:16→14:42)
[2021-03-07] MEDS: LEVOFLOXACIN 500MG TABLET PO SCH (12:49)
[2021-03-07] MEDS: HYDROMORPHONE HCL/PF 2MG/ML CPJ IV PRN (12:50)
[2021-03-07 14:01] LABS: PLATELET ESTIMATE NORMAL
[2021-03-08] VITALS (12 sets, daily range): BP systolic 92–139; BP diastolic 46–96
[2021-03-08] MEDS: NYSTATIN 100,000 UNITS/ML 5ML UDC SSW SCH ×5 (00:05→23:10)
[2021-03-08] MEDS: ALBUTEROL (0.083%) 2.5MG/3ML NEB HHN SCH ×4 (01:15→21:55)
[2021-03-08] MEDS: ACETYLCYSTEINE 100MG/ML 10% VIAL 4ML INH SCH ×3 (01:15→13:48)
[2021-03-08] MEDS: BLOOD SUGAR DIAGNOSTIC STRIP TEST SCH ×4 (06:04→20:44)
[2021-03-08] MEDS: BENZONATATE 100MG CAPSULE PO PRN ×2 (06:12→21:59)
[2021-03-08] MEDS: THROAT LOZENGES-BENZOCAINE/MENTH/CETYLPYRD CL LOZENGES MM PRN ×2 (06:12→13:12)
[2021-03-08] MEDS: GABAPENTIN 100MG CAPSULE PO SCH ×3 (06:12→21:19)
[2021-03-08] MEDS: INSULIN LISPRO 100 UNITS/ML SUBCUT SCH ×4 (07:20→20:44)
[2021-03-08 07:45] LABS: HEMATOCRIT. 31.6 % (42.0-52.0); HEMOGLOBIN. 10.5 g/dL (14.0-18.0); MEAN CORPUSCULAR HEMOGLOBIN 28.1 pg (28.0-32.0); MEAN CORPUSCULAR VOLUME 84.8 fL (80.0-94.0); MEAN PLATELET VOLUME 8.7 fl (7.4-10.4); PLATELET 229 x1000/uL (130-400); RED BLOOD CELL COUNT 3.72 mill/uL (4.7-6.1); RED CELL DISTRIBUTION WIDTH 15.6 % (11.6-14.6)
[2021-03-08] MEDS: CARVEDILOL 12.5MG TABLET PO SCH ×2 (08:11→21:00)
[2021-03-08] MEDS: FUROSEMIDE 40MG/4ML VIAL IVP SCH (08:11)
[2021-03-08] MEDS: FAMOTIDINE 20MG TABLET PO SCH ×2 (08:11→21:19)
[2021-03-08] MEDS: EZETIMIBE 10MG TABLET PO SCH (08:11)
[2021-03-08] MEDS: DOCUSATE SODIUM 100MG CAPSULE PO SCH ×2 (08:12→16:57)
[2021-03-08 08:28] LABS: CHLORIDE 95 mEq/L (98-107)
[2021-03-08] MEDS: ENOXAPARIN 80MG/0.8ML SYR SUBCUT SCH (08:36)
[2021-03-08] MEDS ORDERED: POTASSIUM CHLORIDE 20MEQ TABLET SR PO SCH (10:00)
[2021-03-08] MEDS: LEVOFLOXACIN 500MG TABLET PO SCH (10:21)
[2021-03-08 14:04] LABS: PLATELET ESTIMATE NORMAL
[2021-03-08] MEDS: ENOXAPARIN 60MG/0.6ML SYR SUBCUT SCH (21:21)
[2021-03-08] MEDS: ACETAMINOPHEN 325MG TABLET PO PRN (22:31)
[2021-03-09] VITALS (11 sets, daily range): BP systolic 86–144; BP diastolic 39–88
[2021-03-09] MEDS: ALBUTEROL (0.083%) 2.5MG/3ML NEB HHN SCH ×4 (03:35→21:18)
[2021-03-09] MEDS: ACETYLCYSTEINE 100MG/ML 10% VIAL 4ML INH SCH ×3 (03:35→12:48)
[2021-03-09] MEDS: NYSTATIN 100,000 UNITS/ML 5ML UDC SSW SCH ×3 (05:59→17:10)
[2021-03-09] MEDS: GABAPENTIN 100MG CAPSULE PO SCH ×3 (05:59→21:04)
[2021-03-09] MEDS: ACETAMINOPHEN 325MG TABLET PO PRN ×2 (06:07→21:12)
[2021-03-09] MEDS: BLOOD SUGAR DIAGNOSTIC STRIP TEST SCH ×4 (06:20→20:31)
[2021-03-09] MEDS: INSULIN LISPRO 100 UNITS/ML SUBCUT SCH ×4 (06:55→20:31)
[2021-03-09 07:12] LABS: HEMATOCRIT. 31.3 % (42.0-52.0); HEMOGLOBIN. 10.5 g/dL (14.0-18.0); MEAN CORPUSCULAR HEMOGLOBIN 28.3 pg (28.0-32.0); MEAN CORPUSCULAR VOLUME 84.6 fL (80.0-94.0); MEAN PLATELET VOLUME 9.1 fl (7.4-10.4); PLATELET 212 x1000/uL (130-400); RED BLOOD CELL COUNT 3.69 mill/uL (4.7-6.1); RED CELL DISTRIBUTION WIDTH 15.8 % (11.6-14.6)
[2021-03-09 07:25] LABS: CHLORIDE 95 mEq/L (98-107)
[2021-03-09] MEDS: EZETIMIBE 10MG TABLET PO SCH (08:33)
[2021-03-09] MEDS: DOCUSATE SODIUM 100MG CAPSULE PO SCH ×2 (08:33→16:15)
[2021-03-09] MEDS: FAMOTIDINE 20MG TABLET PO SCH ×2 (08:33→21:04)
[2021-03-09] MEDS: CARVEDILOL 12.5MG TABLET PO SCH ×2 (08:33→21:05)
[2021-03-09] MEDS: ENOXAPARIN 60MG/0.6ML SYR SUBCUT SCH ×2 (08:34→21:04)
[2021-03-09] MEDS: FUROSEMIDE 40MG/4ML VIAL IVP SCH (10:36)
[2021-03-09] MEDS ORDERED: POTASSIUM CHLORIDE 20MEQ TABLET SR PO NR (11:00)
[2021-03-09 14:25] LABS: PLATELET ESTIMATE NORMAL
[2021-03-09] MEDS: THROAT LOZENGES-BENZOCAINE/MENTH/CETYLPYRD CL LOZENGES MM PRN ×2 (15:01→21:06)
[2021-03-09] MEDS: BENZONATATE 100MG CAPSULE PO PRN (21:12)
[2021-03-10] VITALS (12 sets, daily range): BP systolic 101–140; BP diastolic 45–87
[2021-03-10] MEDS: NYSTATIN 100,000 UNITS/ML 5ML UDC SSW SCH ×3 (00:02→12:00)
[2021-03-10] MEDS: ALBUTEROL (0.083%) 2.5MG/3ML NEB HHN SCH ×4 (01:41→21:12)
[2021-03-10] MEDS: ACETYLCYSTEINE 100MG/ML 10% VIAL 4ML INH SCH ×3 (01:41→12:55)
[2021-03-10] MEDS: GABAPENTIN 100MG CAPSULE PO SCH ×3 (05:58→21:17)
[2021-03-10 06:02] LABS: CHLORIDE 97 mEq/L (98-107)
[2021-03-10] MEDS: BLOOD SUGAR DIAGNOSTIC STRIP TEST SCH ×4 (06:35→20:51)
[2021-03-10] MEDS: INSULIN LISPRO 100 UNITS/ML SUBCUT SCH ×4 (07:20→20:52)
[2021-03-10] MEDS: ENOXAPARIN 60MG/0.6ML SYR SUBCUT SCH (08:44)
[2021-03-10] MEDS: DOCUSATE SODIUM 100MG CAPSULE PO SCH ×2 (08:44→16:59)
[2021-03-10] MEDS: BENZONATATE 100MG CAPSULE PO PRN ×2 (08:44→18:34)
[2021-03-10] MEDS: EZETIMIBE 10MG TABLET PO SCH (08:44)
[2021-03-10] MEDS: FUROSEMIDE 40MG/4ML VIAL IVP SCH (08:45)
[2021-03-10] MEDS: CARVEDILOL 12.5MG TABLET PO SCH ×2 (08:45→21:00)
[2021-03-10] MEDS: FAMOTIDINE 20MG TABLET PO SCH ×2 (08:45→21:16)
[2021-03-10 10:19] LABS: HEMATOCRIT. 34.2 % (42.0-52.0); HEMOGLOBIN. 11.3 g/dL (14.0-18.0); MEAN CORPUSCULAR HEMOGLOBIN 28.3 pg (28.0-32.0); MEAN CORPUSCULAR VOLUME 85.8 fL (80.0-94.0); PLATELET 237 x1000/uL (130-400); RED BLOOD CELL COUNT 3.99 mill/uL (4.7-6.1); RED CELL DISTRIBUTION WIDTH 15.9 % (11.6-14.6)
[2021-03-10] MEDS ORDERED: POTASSIUM CHLORIDE 20MEQ TABLET SR PO NR (11:00)
[2021-03-10 14:15] LABS: PLATELET ESTIMATE NORMAL
[2021-03-10] MEDS: APIXABAN 5 MG TABLET PO SCH (16:59)
[2021-03-11] VITALS (12 sets, daily range): BP systolic 105–144; BP diastolic 46–78
[2021-03-11] MEDS: ALBUTEROL (0.083%) 2.5MG/3ML NEB HHN SCH ×4 (02:34→20:49)
[2021-03-11] MEDS: BENZONATATE 100MG CAPSULE PO PRN ×2 (02:41→16:14)
[2021-03-11] MEDS: GABAPENTIN 100MG CAPSULE PO SCH ×3 (05:58→22:08)
[2021-03-11 06:15] LABS: CHLORIDE 98 mEq/L (98-107)
[2021-03-11 06:24] LABS: HEMATOCRIT 30.2 % (42.0-52.0); HEMOGLOBIN 10.2 g/dL (14.0-18.0); MEAN CORPUSCULAR HEMOGLOBIN 28.4 pg (28.0-32.0); PLATELET 237 x1000/uL (130-400); RED BLOOD CELL COUNT 3.59 mill/uL (4.7-6.1); RED CELL DISTRIBUTION WIDTH 15.6 % (11.6-14.6)
[2021-03-11] MEDS: BLOOD SUGAR DIAGNOSTIC STRIP TEST SCH ×4 (06:53→21:00)
[2021-03-11] MEDS: INSULIN LISPRO 100 UNITS/ML SUBCUT SCH ×4 (07:20→21:00)
[2021-03-11] MEDS: FUROSEMIDE 40MG/4ML VIAL IVP SCH (08:44)
[2021-03-11] MEDS: APIXABAN 5 MG TABLET PO SCH ×2 (08:44→16:14)
[2021-03-11] MEDS: EZETIMIBE 10MG TABLET PO SCH (08:44)
[2021-03-11] MEDS: FAMOTIDINE 20MG TABLET PO SCH ×2 (08:45→22:08)
[2021-03-11] MEDS: CARVEDILOL 12.5MG TABLET PO SCH ×2 (08:45→22:08)
[2021-03-11] MEDS: DOCUSATE SODIUM 100MG CAPSULE PO SCH ×2 (08:48→16:14)
[2021-03-11] MEDS ORDERED: POTASSIUM CHLORIDE 20MEQ TABLET SR PO NR ×2 (11:30→13:15)
[2021-03-11] MEDS: THROAT LOZENGES-BENZOCAINE/MENTH/CETYLPYRD CL LOZENGES MM PRN (13:26)
[2021-03-12] VITALS (12 sets, daily range): BP systolic 95–127; BP diastolic 53–68
[2021-03-12] MEDS: ALBUTEROL (0.083%) 2.5MG/3ML NEB HHN SCH ×4 (02:25→20:38)
[2021-03-12] MEDS: GABAPENTIN 100MG CAPSULE PO SCH ×2 (06:39→13:46)
[2021-03-12 06:41] LABS: HEMATOCRIT 30.4 % (42.0-52.0); HEMOGLOBIN 10.4 g/dL (14.0-18.0); MEAN CORPUSCULAR HEMOGLOBIN 28.8 pg (28.0-32.0); MEAN CORPUSCULAR VOLUME 84.3 fL (80.0-94.0); PLATELET 247 x1000/uL (130-400); RED CELL DISTRIBUTION WIDTH 16.1 % (11.6-14.6)
[2021-03-12 06:47] LABS: CHLORIDE 101 mEq/L (98-107)
[2021-03-12] MEDS: BLOOD SUGAR DIAGNOSTIC STRIP TEST SCH ×4 (06:50→20:47)
[2021-03-12] MEDS: INSULIN LISPRO 100 UNITS/ML SUBCUT SCH ×4 (07:20→20:52)
[2021-03-12] MEDS: FAMOTIDINE 20MG TABLET PO SCH ×2 (08:24→20:47)
[2021-03-12] MEDS: FUROSEMIDE 40MG/4ML VIAL IVP SCH (08:24)
[2021-03-12] MEDS: EZETIMIBE 10MG TABLET PO SCH (08:25)
[2021-03-12] MEDS: APIXABAN 5 MG TABLET PO SCH ×2 (08:25→16:05)
[2021-03-12] MEDS: CARVEDILOL 12.5MG TABLET PO SCH ×2 (08:25→20:47)
[2021-03-12] MEDS: DOCUSATE SODIUM 100MG CAPSULE PO SCH ×2 (08:25→16:05)
[2021-03-12] MEDS: BENZONATATE 100MG CAPSULE PO PRN (10:55)
[2021-03-12] MEDS ORDERED: HYDROCODONE/ACETAMINOPHEN 5/325MG TABLET PO PRN (15:06)
[2021-03-12] MEDS ORDERED: MAGNESIUM CITRATE 300ML SOLUTION PO PRN (15:15)
== END 2021-03-12 23:55 | DRG 166 ==
LOC: ER 15:43 → MICUSO 19:25 → EDBEDREQ 19:27 → EDBEDREQTM 19:27 → 7EST 21:04 → CVICU 02-25 09:02 → 3WST 03-01 17:55
PROVIDERS: ADMIT Internal Medicine; ATTEND Internal Medicine
PROC: 0BBP0ZX Excision of Left Pleura, Open Approach, Diagnostic (ICD-10-PCS; principal; 2021-02-25)
PROC: 0W9B0ZZ Drainage of Left Pleural Cavity, Open Approach (ICD-10-PCS; 2021-02-25)
PROC: 3E0L4GC Introduction of Other Therapeutic Substance into Pleural Cavity, Percutaneous Endoscopic Approach (ICD-10-PCS; 2021-02-25)
PROC: 0W9B00Z Drainage of Left Pleural Cavity with Drainage Device, Open Approach (ICD-10-PCS; 2021-02-25)
PROC: 5A09357 Assistance with Respiratory Ventilation, Less than 24 Consecutive Hours, Continuous Positive Airway Pressure (ICD-10-PCS; 2021-02-25)
PROC: 3E0L3GC Introduction of Other Therapeutic Substance into Pleural Cavity, Percutaneous Approach (ICD-10-PCS; 2021-03-05)
DX: J96.00 Acute respiratory failure, unspecified whether with hypoxia or hypercapnia (principal); I50.33 Acute on chronic diastolic (congestive) heart failure; J18.9 Pneumonia, unspecified organism; I48.20 Chronic atrial fibrillation, unspecified; J91.8 Pleural effusion in other conditions classified elsewhere; E44.0 Moderate protein-calorie malnutrition; I11.0 Hypertensive heart disease with heart failure; D64.9 Anemia, unspecified; E11.9 Type 2 diabetes mellitus without complications; E83.51 Hypocalcemia; Z79.01 Long term (current) use of anticoagulants; K59.00 Constipation, unspecified; Z79.899 Other long term (current) drug therapy; Z87.01 Personal history of pneumonia (recurrent); B37.9 Candidiasis, unspecified; Z20.822 Contact with and (suspected) exposure to COVID-19
CPT/HCPCS: 36415; 36600; 71045; 71250; 74018; 76604; 80048; 80053; 80061; 81003; 82375; 82805; 82962; 83036; 83615; 83880; 84145; 84484; 85025; 85027; 86850; 86900; 87015; 87045; 87070; 87075; 87116; 87426; 87427; 87449; 88108; 88305; 88312; 93005; 93970; 94002; 94640; 94660; 97110; 97116; 97162; 97164; 97166; 97530; 97535; 99291; A6261; C1758; J0360; J0690; J1100; J1170; J1650; J1815; J1940; J1956; J2250; J2270; J2405; J2543; J2704; J2710; J2765; J2920; J3010; J3480; J3490; J7060; J7608

== ENCOUNTER 2021-08-13 18:07 | Inpatient (IN) | payer MEDICARE, MEDICAID ==
[~2021-08-13] VITALS: Ht 177.8 cm; Wt 73.5 kg
[~2021-08-13 18:07] MED LIST changes: -DOCU-138 MT; -METO5TAB86 MT
[2021-08-13 19:29] LABS: BASOPHILS % 0.7 % (0.0-2.0); HEMATOCRIT. 33.7 % (42.0-52.0); HEMOGLOBIN. 11.2 g/dL (14.0-18.0); LYMPHOCYTES % 8.6 % (20.0-50.0); MEAN CORPUSCULAR HEMOGLOBIN 29.1 pg (28.0-32.0); MEAN CORPUSCULAR VOLUME 87.5 fL (80.0-94.0); MEAN PLATELET VOLUME 7.9 fl (7.4-10.4); MONOCYTES % 11.4 % (2.0-8.0); NEUTROPHILS % 78.3 % (40.0-76.0); PLATELET 229 x1000/uL (130-400); RED BLOOD CELL COUNT 3.85 mill/uL (4.7-6.1); RED CELL DISTRIBUTION WIDTH 17.5 % (11.6-14.6)
[2021-08-13 19:30] LABS: CHLORIDE 99 mEq/L (98-107)
[2021-08-13] MEDS ORDERED: FUROSEMIDE 40MG/4ML VIAL IVP ONE (20:00)
[2021-08-14] MEDS: IPRATROPIUM/ALBUTEROL 0.5-3(2.5)MG/3ML NEB HHN SCH ×3 (01:20→21:20)
[2021-08-14] MEDS ORDERED: POTASSIUM CHLORIDE INJ 40 MEQ in DEXT 5% WATER 250 ML IV ONE (03:15)
[2021-08-14] MEDS: KCL 20MEQ/100ML PREMIX 100 ML IV SCH ×2 (04:39→06:27)
[2021-08-14 12:52] VITALS: BP 143/72
[2021-08-14 13:31] VITALS: BP 143/72
[2021-08-14] MEDS ORDERED: BENZONATATE 100MG CAPSULE PO PRN (14:30)
[2021-08-14] MEDS ORDERED: CLONIDINE 0.1MG TABLET PO PRN (14:30)
[2021-08-14] MEDS ORDERED: ACETAMINOPHEN 325MG TABLET PO PRN (14:30)
[2021-08-14] MEDS ORDERED: ONDANSETRON HCL 4MG/2ML INJ IV PRN (14:30)
[2021-08-14 16:00] VITALS: BP 139/56
[2021-08-14] MEDS: CARVEDILOL 12.5MG TABLET PO SCH ×2 (17:00→17:15)
[2021-08-14] MEDS: DOCUSATE SODIUM 250MG CAPSULE PO SCH (17:15)
[2021-08-14] MEDS: PANTOPRAZOLE SODIUM 40 MG/VIAL IV SCH (17:15)
[2021-08-14] MEDS: ENOXAPARIN 80MG/0.8ML SYR SUBCUT SCH (17:16)
[2021-08-14] MEDS: GABAPENTIN 100MG CAPSULE PO SCH (17:16)
[2021-08-14] MEDS: LEVOFLOXACIN 500MG PREMIX 100 ML IV SCH (18:02)
[2021-08-14 18:46] LABS: PROTHROMBIN TIME 11.2 sec (9.6-11.0)
[2021-08-14 20:00] VITALS: BP 122/62
[2021-08-14] MEDS: FUROSEMIDE 40MG/4ML VIAL IVP SCH (21:01)
[2021-08-14] MEDS ORDERED: DEXTROSE 50% WATER 50ML SYRINGE IV PRN (21:45)
[2021-08-15] VITALS: BP 108/50
[2021-08-15 00:32] LABS: CREATINE KINASE MB FRACTION 3.5 ng/mL (0.5-3.6)
[2021-08-15] MEDS: IPRATROPIUM/ALBUTEROL 0.5-3(2.5)MG/3ML NEB HHN SCH ×6 (01:40→21:05)
[2021-08-15 04:00] VITALS: BP 108/55
[2021-08-15] MEDS: ENOXAPARIN 80MG/0.8ML SYR SUBCUT SCH ×2 (06:30→17:18)
[2021-08-15] MEDS: BLOOD SUGAR DIAGNOSTIC STRIP TEST SCH ×4 (06:34→21:53)
[2021-08-15] MEDS ORDERED: LIDOCAINE HCL/PF 1% 2ML VIAL ONE (06:45)
[2021-08-15] MEDS: INSULIN LISPRO 100 UNITS/ML SUBCUT SCH ×4 (07:40→21:00)
[2021-08-15 08:00] VITALS: BP 120/55
[2021-08-15 08:12] LABS: BG BASE EXCESS 8.9 mmol/L (-2.0-2.0); BG CARBOXYHEMOGLOBIN 0.5 % (0.5-1.5); BG DEOXYHEMOGLOBIN 6.2 % (0.0-5.0); BG HCO3 ACT 33.9 mmol/L (22.0-26.0); BG METHEMOGLOBIN 0.3 % (0.0-1.5); BG OXYGEN SATURATION 93.8 % (92.0-98.5); BG PCO2 48.5 mmHg (35.0-45.0); BG PH 7.462 (7.350-7.450); BG PO2 69.1 mmHg (75.0-100.0); BG SAMPLE SITE RIGHT RADIAL; BG TOTAL HEMOGLOBIN 11.5 g/dL (12.0-18.0); BG VENT MODE ROOM AIR
[2021-08-15 08:14] LABS: BASOPHILS % 0.4 % (0.0-2.0); EOSINOPHILS % 0.3 % (0.0-5.0); HEMATOCRIT. 32.4 % (42.0-52.0); LYMPHOCYTES % 7.7 % (20.0-50.0); MEAN CORPUSCULAR HEMOGLOBIN 29.8 pg (28.0-32.0); MEAN CORPUSCULAR VOLUME 87.7 fL (80.0-94.0); MEAN PLATELET VOLUME 8.3 fl (7.4-10.4); MONOCYTES % 8.3 % (2.0-8.0); NEUTROPHILS % 83.3 % (40.0-76.0); PLATELET 223 x1000/uL (130-400); RED BLOOD CELL COUNT 3.69 mill/uL (4.7-6.1); RED CELL DISTRIBUTION WIDTH 17.7 % (11.6-14.6)
[2021-08-15 08:20] LABS: CHLORIDE 100 mEq/L (98-107)
[2021-08-15 08:29] LABS: CREATINE KINASE MB FRACTION 3.7 ng/mL (0.5-3.6)
[2021-08-15] MEDS: PANTOPRAZOLE SODIUM 40 MG/VIAL IV SCH (09:42)
[2021-08-15] MEDS: FUROSEMIDE 40MG/4ML VIAL IVP SCH ×2 (09:42→22:34)
[2021-08-15] MEDS: DOCUSATE SODIUM 250MG CAPSULE PO SCH ×2 (09:43→17:18)
[2021-08-15] MEDS: LOSARTAN POTASSIUM 50 MG TABLET PO SCH (09:43)
[2021-08-15] MEDS: CARVEDILOL 12.5MG TABLET PO SCH ×2 (09:43→17:00)
[2021-08-15] MEDS: GABAPENTIN 100MG CAPSULE PO SCH ×3 (09:43→17:18)
[2021-08-15 12:00] VITALS: BP 102/79
[2021-08-15] MEDS: EZETIMIBE 10MG TABLET PO SCH (13:15)
[2021-08-15] MEDS ORDERED: POTASSIUM CHLORIDE 20MEQ TABLET SR PO NR (15:00)
[2021-08-15] MEDS: LEVOFLOXACIN 500MG PREMIX 100 ML IV SCH (15:03)
[2021-08-15 16:00] VITALS: BP 108/60
[2021-08-15 20:00] VITALS: BP 92/50
[2021-08-16] VITALS: BP 115/62
[2021-08-16 04:08] VITALS: BP 120/51
[2021-08-16] MEDS: ENOXAPARIN 80MG/0.8ML SYR SUBCUT SCH ×2 (05:49→17:42)
[2021-08-16] MEDS: BLOOD SUGAR DIAGNOSTIC STRIP TEST SCH ×4 (07:20→20:42)
[2021-08-16 07:27] LABS: HEMATOCRIT. 33.7 % (42.0-52.0); HEMOGLOBIN. 11.5 g/dL (14.0-18.0); MEAN CORPUSCULAR HEMOGLOBIN 29.7 pg (28.0-32.0); MEAN CORPUSCULAR VOLUME 87.4 fL (80.0-94.0); MEAN PLATELET VOLUME 8.6 fl (7.4-10.4); PLATELET 212 x1000/uL (130-400); RED BLOOD CELL COUNT 3.86 mill/uL (4.7-6.1); RED CELL DISTRIBUTION WIDTH 17.9 % (11.6-14.6)
[2021-08-16] MEDS: INSULIN LISPRO 100 UNITS/ML SUBCUT SCH ×4 (07:40→20:42)
[2021-08-16 07:50] LABS: CHLORIDE 99 mEq/L (98-107)
[2021-08-16 08:00] VITALS: BP 135/54
[2021-08-16] MEDS: FUROSEMIDE 40MG/4ML VIAL IVP SCH ×2 (08:52→21:20)
[2021-08-16] MEDS: PANTOPRAZOLE SODIUM 40 MG/VIAL IV SCH (08:52)
[2021-08-16] MEDS: CARVEDILOL 12.5MG TABLET PO SCH ×2 (08:53→16:18)
[2021-08-16] MEDS: LOSARTAN POTASSIUM 50 MG TABLET PO SCH (08:53)
[2021-08-16] MEDS: EZETIMIBE 10MG TABLET PO SCH (08:53)
[2021-08-16] MEDS: GABAPENTIN 100MG CAPSULE PO SCH ×3 (08:53→16:18)
[2021-08-16] MEDS: DOCUSATE SODIUM 250MG CAPSULE PO SCH ×2 (08:53→16:27)
[2021-08-16] MEDS: IPRATROPIUM/ALBUTEROL 0.5-3(2.5)MG/3ML NEB HHN SCH ×4 (09:13→21:28)
[2021-08-16 12:15] VITALS: BP 102/50
[2021-08-16] MEDS ORDERED: MAGNESIUM CITRATE 300ML SOLUTION PO SCH (13:00)
[2021-08-16 16:00] VITALS: BP 98/54
[2021-08-16] MEDS: LEVOFLOXACIN 500MG PREMIX 100 ML IV SCH (16:18)
[2021-08-16 16:40] LABS: PLATELET ESTIMATE NORMAL
[2021-08-16 20:00] VITALS: BP 107/53
[2021-08-16] MEDS: HYDROCORTISONE 2.5% OINT 20GM TOP SCH (21:19)
[2021-08-17] VITALS: BP 113/96
[2021-08-17] MEDS: IPRATROPIUM/ALBUTEROL 0.5-3(2.5)MG/3ML NEB HHN SCH ×4 (01:45→15:52)
[2021-08-17 04:00] VITALS: BP 117/64
[2021-08-17] MEDS: ENOXAPARIN 80MG/0.8ML SYR SUBCUT SCH (05:41)
[2021-08-17 07:35] LABS: HEMATOCRIT. 35.7 % (42.0-52.0); HEMOGLOBIN. 11.8 g/dL (14.0-18.0); MEAN PLATELET VOLUME 8.5 fl (7.4-10.4); PLATELET 260 x1000/uL (130-400); RED BLOOD CELL COUNT 4.06 mill/uL (4.7-6.1); RED CELL DISTRIBUTION WIDTH 17.6 % (11.6-14.6)
[2021-08-17] MEDS: INSULIN LISPRO 100 UNITS/ML SUBCUT SCH ×2 (07:50→12:44)
[2021-08-17 07:53] LABS: CHLORIDE 98 mEq/L (98-107)
[2021-08-17] MEDS: BLOOD SUGAR DIAGNOSTIC STRIP TEST SCH ×2 (07:56→12:43)
[2021-08-17 08:00] VITALS: BP 125/58
[2021-08-17] MEDS: GABAPENTIN 100MG CAPSULE PO SCH ×2 (09:16→13:56)
[2021-08-17] MEDS: PANTOPRAZOLE SODIUM 40 MG/VIAL IV SCH (09:16)
[2021-08-17] MEDS: EZETIMIBE 10MG TABLET PO SCH (09:16)
[2021-08-17] MEDS: LOSARTAN POTASSIUM 50 MG TABLET PO SCH (09:16)
[2021-08-17] MEDS: HYDROCORTISONE 2.5% OINT 20GM TOP SCH (09:16)
[2021-08-17] MEDS: FUROSEMIDE 40MG/4ML VIAL IVP SCH (09:16)
[2021-08-17] MEDS: CARVEDILOL 12.5MG TABLET PO SCH (09:16)
[2021-08-17] MEDS: DOCUSATE SODIUM 250MG CAPSULE PO SCH (09:17)
[2021-08-17] MEDS ORDERED: LEVOFLOXACIN 500MG TABLET PO SCH (11:00)
[2021-08-17 12:00] VITALS: BP 108/38
[2021-08-17 15:01] LABS: PLATELET ESTIMATE NORMAL
[2021-08-17 16:00] VITALS: BP 113/41
[2021-08-17] MEDS ORDERED: SILV20CR13 TP (17:38)
[2021-08-17] MEDS ORDERED: LEVO500T89 MT (17:38)
[2021-08-17] MEDS ORDERED: HC A30CR11 RC (17:38)
[2021-08-17 18:35] VITALS: BP 107/39
[2021-08-19] MEDS ORDERED: DUTA1CPM4 PO (18:08)
[2021-08-19] MEDS ORDERED: DICL75TA5 PO (18:10)
[2021-08-19] MEDS ORDERED: FERR325T6 PO (18:10)
[2021-08-19] MEDS ORDERED: MONT10TA21 PO (18:12)
== END 2021-08-17 19:15 | disposition home health service (06) | DRG 193 ==
LOC: ER 18:07 → MICUSO 21:45 → 6WST 08-14 13:12
PROVIDERS: ADMIT Internal Medicine; ATTEND Internal Medicine
DX: J18.9 Pneumonia, unspecified organism (principal); I50.33 Acute on chronic diastolic (congestive) heart failure; I48.20 Chronic atrial fibrillation, unspecified; J91.8 Pleural effusion in other conditions classified elsewhere; I11.0 Hypertensive heart disease with heart failure; R10.9 Unspecified abdominal pain; E87.6 Hypokalemia; E11.621 Type 2 diabetes mellitus with foot ulcer; L97.529 Non-pressure chronic ulcer of other part of left foot with unspecified severity; R06.03 Acute respiratory distress; D64.9 Anemia, unspecified; Z20.822 Contact with and (suspected) exposure to COVID-19; E11.51 Type 2 diabetes mellitus with diabetic peripheral angiopathy without gangrene; I83.009 Varicose veins of unspecified lower extremity with ulcer of unspecified site; I87.2 Venous insufficiency (chronic) (peripheral); K59.09 Other constipation; K80.20 Calculus of gallbladder without cholecystitis without obstruction; Z79.01 Long term (current) use of anticoagulants; Z79.4 Long term (current) use of insulin; Z79.899 Other long term (current) drug therapy
CPT/HCPCS: 36415; 36600; 71045; 74176; 80048; 80053; 82375; 82550; 82553; 82805; 82962; 83036; 83605; 83880; 84145; 84484; 85025; 87426; 93005; 93923; 93970; 93971; 94640; 97162; 99285; C9113; J1650; J1815; J1940; J1956; J2405; J3480; J3490; J7040; J7060